=== PATIENT | male | born 1945 | race Caucasian/White ===

== ENCOUNTER 2016-10-18 09:59 | Emergency (ER) | payer BC ==
[~2016-10-18] VITALS: Ht 177.8 cm; Wt 104.5 kg
[~2016-10-18 09:59] MED LIST: ALLO300T2 PO; ALT/10 PO; AMLO10TA4 PO; CLOB-77 TOP; GLIP-197 PO; LPT/40 PO; METF1TAB85 PO; NAPR-1169 PO; OMEP20TA PO; OXYC-57 PO
[2016-10-18 10:04] VITALS: TEMP 36.6; Ht 177.8 cm; Wt 104.5 kg
[2016-10-18] MEDS ORDERED: MOME1OIN2 (10:50)
--- NOTE | 2016-10-18 11:27 | DIAGNOSTIC IMAGING REPORT ---
RIGHT SHOULDER MIN 2 VIEWS ROUTINE CLINICAL HISTORY: Right shoulder pain. COMPARISON: Right shoulder radiograph March 05, 2010. FINDINGS: Alignment of the right shoulder is anatomic. There is no acute fracture or suspicious lesion. There is mild arthritis of the glenohumeral and acromioclavicular joints. IMPRESSION: 1. No acute fracture or dislocation of the right shoulder. 2. Mild arthritis of the right acromioclavicular and glenohumeral joints. Electronically signed by: Zeb Sales M.D. 10/18/2016 11:25 AM Dictated Date/Time: 10/18/2016 11:25 AM
[2016-10-18 11:58] VITALS: BP 151/113; PULSE 78; O2SAT 95
--- NOTE | 2016-10-18 12:27 | EMERGENCY ROOM VISIT NOTE ---
History First contact with patient: 10:38 Chief Complaint: SHOULDER PAIN Stated Complaint: SHOULDER PAIN History of Present Illness The patient is a 71 year old male who presents to the Emergency Room via private vehicle accompanied by with complaints of "shoulder pain". Patient states that he was moving for blade sheets of [place] around 5 weeks ago that involved him using the right arm that was slightly outstretched elevating it when he heard a crunch in his shoulder. He has been trying ice/ heat/ibuprofen 600 mg and 2 Tylenol daily which makes the pain bearable. He started to notice swelling in the region about 2 weeks ago and the pain has been worsening. When he uses he feels like there is a stabbing I feeling in the right shoulder. He was going to wait until his a doctor's appointment coming up with Dr. Albert on November 09 but notes he is unable to stand the pain of which he rates as a 8/10. Review of Systems A complete 6-point Review of Systems was discussed with the patient, with pertinent positives and negatives listed in the History of Present Illness. All remaining Review of Systems questions can be considered negative unless otherwise specified. 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 (4) Gout Nos (5) Hypertension Nos (6) Mixed Hyperlipidemia (7) Obesity, Nos (8) Obesity, Nos (9) Peritoneal Adhesions (Postprocedural) (Postinfection) (10) Senile cataract, unspecified (11) Small bowel obstruction due to adhesions (12) Tobacco Use Disorder (13) Umbilical Hernia Without Obstruction Or Gangrene Surgical Problems: (1) History of bowel resection Family History FH: diabetes mellitus FH: hypertension Social History Smoking Status: Former Smoker Drug Use: none Marital Status: Housing Status: lives with family Current/Historical Medications Scheduled Allopurinol (Zyloprim), 300 MG PO QAM Amlodipine Besylate (Norvasc), 10 MG PO QAM Atorvastatin (Lipitor), 40 MG PO QAM Glipizide (Glipizide Er), 5 MG PO QDB Metformin Hcl (Metformin Hcl Er), 500 MG PO BID Naproxen (Naprosyn), 500 MG PO Q12 Ramipril (Altace), 10 MG PO BID Scheduled PRN Omeprazole (Omeprazole), 20 MG PO DAILY PRN for PRN Miscellaneous Medications Mometasone Furoate (Mometasone Furoate) Allergies Coded Allergies: Atenolol (Verified Allergy, Intermediate, pass out, chest pain, 10/18/16) pt request this to be removed Physical Exam Vital Signs Date Time Temp Pulse Resp B/P Pulse Ox O2 Delivery O2 Flow Rate FiO2 10/18/16 11:58 78 16 151/113 95 10/18/16 10:04 36.6 97 18 178/111 97 Room Air Physical Exam VITAL SIGNS - Vital signs and nursing notes were reviewed. Patient is afebrile , he is hypertensive that 178/111, he is not tachycardic and is saturating well on room air at 97%. GENERAL -71-year-old male appearing his stated age who is in no acute distress. Communicates well with provider and answers questions appropriately. SKIN - Without rashes. No petechial rashes. HEAD - NC/AT. LUNGS - Chest wall symmetric without accessory muscle use, intercostals retractions, or central cyanosis. Normal vesicular breath sounds CTA B/L. No wheezes, rales, or rhonchi appreciated. CARDIAC - RRR with S1/S2. No murmur, rubs, or gallops appreciated. EXTREMITIES - No clubbing or peripheral cyanosis. No pretibial edema present. +3 /5 right radial pulse. +5/5 strength noted in UE/LE bilaterally. With outstretched extension of the right arm and passive elevation with pronation of the right hand there is exquisite tenderness referred to the right deltoid region. When attempting the test for the supraspinatus muscle patient experienced a great deal of pain. Positive empty can test. Suspect supraspinatus injury. NEUROLOGIC - Sensory intact to light touch throughout. PSYCH - Pt is very pleasant and interacts well with examiner. Medical Decision & Procedures ER Provider Diagnostic Interpretation: RIGHT SHOULDER MIN 2 VIEWS ROUTINE CLINICAL HISTORY: Right shoulder pain. COMPARISON: Right shoulder radiograph March 05, 2010. FINDINGS: Alignment of the right shoulder is anatomic. There is no acute fracture or suspicious lesion. There is mild arthritis of the glenohumeral and acromioclavicular joints. IMPRESSION: 1. No acute fracture or dislocation of the right shoulder. 2. Mild arthritis of the right acromioclavicular and glenohumeral joints. Electronically signed by: Zeb Sales M.D. 10/18/2016 11:25 AM Dictated Date/Time: 10/18/2016 11:25 AM Medical Decision Patient was seen and evaluated as above. After obtaining a thorough history and physical examination radiograph was obtained of the right shoulder. High clinical index of suspicion for supraspinatus injury based upon history and physical exam. Radiographs of the right shoulder were obtained. Negative for acute process. In the absence of bony injury I suspect a rotator cuff injury. Patient did not want anything for pain. He was fitted with an arm sling and instructed upon range of motion exercises. He is to call Dr. Johnson, orthopedic surgeon, as soon as possible to schedule follow-up regarding today's visit. He was educated upon management today's findings, had questions answered prior to discharge, was educated upon worrisome symptoms in which to return, and was discharged home in good condition. With reproducible symptoms upon manipulation of the right shoulder I do not suspect any underlying emergent processes such as cardiac or pulmonary causes. In the evaluation and treatment of this patient, the following differential diagnoses were considered: Shoulder Contusion, Shoulder Fracture, Shoulder Dislocation, Thoracic Outlet Syndrome, Adhesive Capsulitis, Rotator Cuff Tear, Proximal Clavicle Head Fracture, Apical Pneumonia, Pneumothorax, Hemothorax, or TB. Impression Primary Impression: Rotator cuff injury Departure Information Dispostion Home / Self-Care Condition GOOD Referrals Chino Albert D.O.Int.Med. (PCP) Selwyn Johnson M.D. Patient Instructions My [facility] Additional Instructions You have been treated in the Emergency Department for Shoulder Pain. For pain control, you can use the following [id number] medicines (if >12 yo): - Regular strength (325mg/tab) Tylenol (acetaminophen) 2 tabs every 4-6 hours as needed. Do not exceed 12 tablets in a 24 hour period. Avoid taking more than 4 grams (4000 mg) of Tylenol per day. This includes any other sources of acetaminophen you may take on a regular basis. - Regular strength (200 mg/tab) Advil (ibuprofen) 1-2 tabs every 4-6 hours as needed. Do not exceed a dose of 3200 mg per day. If this is a recent injury (<24 hrs), ice can be applied to the area of pain for the first 3 days to help decrease pain and inflammation. You have been provided the number for an Orthopaedic Surgeon. You should call this number as soon as possible to establish a follow-up visit from today's Emergency Department visit. Keep the shoulder brace/sling in place until evaluated by Orthopedics. Continue to perform range of motion exercises several times per day to help prevent the development of a "frozen shoulder". Return to the Emergency Department if your current symptoms worsen despite treatment course outlined above, or if you develop any of the following symptoms : intractable pain despite aforementioned treatment course or new onset of numbness or tingling of the arm. Please have your blood pressure rechecked with your family doctor. it was high today. Please return to the emergency department with any new/concerning symptoms. Problem Qualifiers Primary Impression: Rotator cuff injury Encounter type: initial encounter Laterality: right Qualified Codes: S46.001A - Unspecified injury of muscle(s) and tendon(s) of the rotator cuff of right shoulder, initial encounter
[2017-01-13] MEDS ORDERED: DICL1GEL12 EXT (08:59)
[2017-01-19] MEDS ORDERED: OXYC-57 PO (09:07)
[2017-01-19] MEDS ORDERED: KETO10TA PO (09:07)
== END 2016-10-18 12:28 | disposition home or self-care (01) ==
LOC: C.EDB 10:02 → C.EDA 12:28
DX: S46.001A Unspecified injury of muscle(s) and tendon(s) of the rotator cuff of right shoulder, initial encounter (principal); X50.0XXA Overexertion from strenuous movement or load, initial encounter; E11.9 Type 2 diabetes mellitus without complications; I25.10 Atherosclerotic heart disease of native coronary artery without angina pectoris; I10 Essential (primary) hypertension; E78.2 Mixed hyperlipidemia; Z87.891 Personal history of nicotine dependence

== ENCOUNTER 2016-11-07 09:15 | Inpatient (IN) | payer BC, OTHER ==
[2016-11-07] VITALS (7 sets, daily range): BP systolic 133–183; BP diastolic 77–113; PULSE 62–86; TEMP 36.3–36.8; O2SAT 92–97; Ht 177.8 cm; Wt 107.2 kg
[~2016-11-07] VITALS: Ht 177.8 cm; Wt 107.2 kg
[~2016-11-07 09:15] MED LIST changes: -CLOB-77 TOP; +MOME1OIN2; -OXYC-57 PO
[2016-11-07] MEDS ORDERED: SODIUM CHLORIDE 0.9% 1000ML 1,000 ML IV STA (09:38)
[2016-11-07] MEDS ORDERED: ONDANSETRON INJ 2 MG/ML 2 ML VIAL IV STA (09:38)
[2016-11-07] MEDS ORDERED: MoRPHine SULFATE 10 MG/ML CARP/VIAL IV STA (09:38)
[2016-11-07 10:13] LABS: BASO % 0.1 %; BASO ABS # 0.01 K/uL (0-0.2); COMPLETE YES; EOS % 0.4 %; HEMATOCRIT 46.1 % (42-52); IG% 0.4 %; LYMPH % 11.2 %; LYMPH ABS # 1.56 K/uL (1.2-3.4); MEAN CELL VOLUME 89.2 fL (80-100); MEAN CORPUSCULAR HEMOGLOBIN 30.8 pg (25-34); MEAN CORPUSCULAR HGB CONC 34.5 g/dl (32-36); MEAN PLATELET VOLUME 9.4 fL (7.4-10.4); MONO % 3.9 %; PLATELET COUNT 115 K/uL (130-400); RED BLOOD COUNT 5.17 M/uL (4.7-6.1); WHITE BLOOD COUNT 13.93 K/uL (4.8-10.8)
[2016-11-07 10:33] LABS: BUN/CREATININE RATIO 25.8 (10-20); CALCIUM 9.5 mg/dl (8.5-10.1); POTASSIUM 4.4 mmol/L (3.5-5.1)
--- NOTE | 2016-11-07 10:33 | DIAGNOSTIC IMAGING REPORT ---
PA CHEST WITH ABDOMINAL SERIES CLINICAL HISTORY: Generalized abdominal pain. FINDINGS: A PA chest radiograph is compared to study dated 04/24/2016. The examination is degraded by large body habitus and patient rotation. The heart is mildly enlarged and there is atherosclerotic calcification of the thoracic aorta. The pulmonary vasculature is noncongested. There is mild elevation of the right hemidiaphragm. The lungs and pleural spaces are otherwise clear. No pneumothorax is seen. The skeletal structures are osteopenic. The bony thorax is grossly intact. Supine and erect abdominal radiographs are correlated with abdominal CT dated 04/24/2016. There are distended and gas-filled loops of small bowel measuring up to 4.5 cm in diameter. Findings are consistent with a small bowel obstruction. Scattered air-fluid levels are noted on the upright view. No intraperitoneal free air is identified. Moderate fecal retention is noted in the colon. Suture material and phleboliths are identified in the pelvis. There is mild lumbosacral spondylosis. The bony pelvis appears intact. IMPRESSION: 1. Cardiomegaly with no acute cardiopulmonary abnormality. 2. Findings are consistent with a small bowel obstruction. 3. No intraperitoneal free air is seen. Electronically signed by: Roni Workman M.D. 11/07/2016 10:32 AM Dictated Date/Time: 11/07/2016 10:29 AM
[2016-11-07] MEDS ORDERED: MoRPHine SULFATE 4 MG/ML 1 ML CARP\\VIAL IV STA (10:53)
[2016-11-07 10:55] LABS: URINE APPEARANCE CLEAR (CLEAR); URINE BILIRUBIN NEG (NEG); URINE COLOR YELLOW; URINE EPITHELIAL CELL AUTO 0-5 /lpf (0-5); URINE NITRITE NEG (NEG); URINE SPECIFIC GRAVITY 1.014 (1.000-1.030); UROBILINOGEN NEG (NEG)
[2016-11-07 11:22] LABS: MANUAL MICROSCOPIC REQUIRED? NO; REVIEW REQ? NO
[2016-11-07] MEDS ORDERED: ONDANSETRON INJ 2 MG/ML 2 ML VIAL IV PRN (12:00)
[2016-11-07] MEDS ORDERED: OPTIRAY 320 IV PRN (12:15)
[2016-11-07] MEDS: HydrALAZINE HCL 20 MG/ML VIAL IV. PRN ×3 (12:16→15:49)
[2016-11-07] MEDS: HYDROmorphone INJ 1 MG/ML SYR IV PRN ×3 (12:16→20:57)
--- NOTE | 2016-11-07 12:26 | History and Physical ---
History & Physical Date & Time of Service: Nov 07, 2016 at 12:11 Chief Complaint: Abd Pain Primary Care Physician: Chino Albert D.O.Int.Med. History of Present Illness Source: patient, family, hospital records This patient is a 71-year-old male that presents emergency department complaining of diffuse sharp, stabbing abdominal pain that woke him out of sleep around 2 AM this morning. The pain has been constant since. He has not tried any medications to alleviate the pain. He has also felt very nauseous, but denies any vomiting. Last bowel movement was yesterday morning and small. He denies any diarrhea. No fever or chills. He denies any sick contacts. He was feeling somewhat "under the weather" yesterday. He reports eating and drinking normally the day before. Workup in the emergency department consisted of abdominal x-rays. This is consistent with an SBO. Mild leukocytosis at 13,000. Lipase is significantly elevated at 32,828. LFTs are normal. The patient was given morphine 6 mg IV which minimally helped with the pain. He does note that the nausea is much better. The patient has a history of an incarcerated ventral hernia with associated bowel obstruction in April 2016. At that time, his abdominal pain was lower than it is today. The patient also had a partial colectomy done in 2014 for diverticulitis. Past Medical/Surgical History Medical Problems: Diabetes type 2 Gout Hypertension History of incarcerated ventral hernia status post hernia repair and lysis of adhesions in April 2016 History of diverticulitis status post partial colectomy in 2014 Chronic right shoulder pain, possible rotator cuff injury Family History FH: diabetes mellitus FH: hypertension Father of cancer in his 80s Social History Smoking Status: Former Smoker (quit smoking in his 30s) Smokeless Tobacco Use: Yes Alcohol Use: none (minimal) Drug Use: none Marital Status: Housing status: lives with family Immunizations History of Influenza Vaccine: No History of Tetanus Vaccine?: Unknown History of Pneumococcal: No Pneumococcal Date: Apr 26, 2013 History of Hepatitis B Vaccine: Unknown Multi-Drug Resistant Organisms History of MDRO: No Allergies Coded Allergies: Atenolol (Verified Allergy, Intermediate, pass out, chest pain, 11/07/16) pt request this to be removed Home Medications Scheduled Allopurinol (Zyloprim), 300 MG PO QAM Amlodipine Besylate (Norvasc), 10 MG PO QAM Atorvastatin (Lipitor), 40 MG PO QAM Glipizide (Glipizide Er), 5 MG PO QDB Metformin Hcl (Metformin Hcl Er), 500 MG PO BID Naproxen (Naprosyn), 500 MG PO Q12 Ramipril (Altace), 10 MG PO BID Scheduled PRN Omeprazole (Omeprazole), 20 MG PO DAILY PRN for PRN Miscellaneous Medications Mometasone Furoate (Mometasone Furoate) Review of Systems 10 system review performed and negative unless noted in HPI or below Physical Exam Vital Signs Date Time Temp Pulse Resp B/P Pulse Ox O2 Delivery O2 Flow Rate FiO2 11/07/16 11:18 72 16 181/113 94 Room Air 11/07/16 10:32 72 18 169/106 92 Room Air 11/07/16 09:19 36.7 65 22 200/107 98 Room Air General Appearance: + mild distress Head: normocephalic Eyes: EOMI ENT: + pertinent finding (oral mucosa slightly dry) Neck: no JVD Respiratory/Chest: lungs clear Cardiovascular: regular rate, rhythm Abdomen/GI: soft, + pertinent finding (tenderness to palpation diffusely throughout the upper abdomen. No guarding or rebound tenderness. Bowel sounds present, but hypoactive.) Extremities/Musculoskelatal: + pertinent finding (trace pitting edema in the lower extremities without any erythema, tenderness or warmth appreciated bilaterally.) Neurologic/Psych: no motor/sensory deficits, oriented x 3 Skin: warm/dry Diagnostics Laboratory Results 11/07/16 09:42 Red Blood Count 5.17, Mean Corpuscular Volume 89.2, Mean Corpuscular Hemoglobin 30.8, Mean Corpuscular Hemoglobin Concent 34.5, Mean Platelet Volume 9.4, Neutrophils (%) (Auto) 84.0, Lymphocytes (%) (Auto) 11.2, Monocytes (%) (Auto) 3.9, Eosinophils (%) (Auto) 0.4, Basophils (%) (Auto) 0.1, Neutrophils # (Auto) 11.70, Lymphocytes # (Auto) 1.56, Monocytes # (Auto) 0.55, Eosinophils # (Auto) 0.06, Basophils # (Auto) 0.01 Test 11/07/16 09:42 11/07/16 09:45 White Blood Count 13.93 K/uL (4.8-10.8) Red Blood Count 5.17 M/uL (4.7-6.1) Hemoglobin 15.9 g/dL (14.0-18.0) Hematocrit 46.1 % (42-52) Mean Corpuscular Volume 89.2 fL (80-100) Mean Corpuscular Hemoglobin 30.8 pg (25-34) Mean Corpuscular Hemoglobin Concent 34.5 g/dl (32-36) Platelet Count 115 K/uL (130-400) Mean Platelet Volume 9.4 fL (7.4-10.4) Neutrophils (%) (Auto) 84.0 % Lymphocytes (%) (Auto) 11.2 % Monocytes (%) (Auto) 3.9 % Eosinophils (%) (Auto) 0.4 % Basophils (%) (Auto) 0.1 % Neutrophils # (Auto) 11.70 K/uL (1.4-6.5) Lymphocytes # (Auto) 1.56 K/uL (1.2-3.4) Monocytes # (Auto) 0.55 K/uL (0.11-0.59) Eosinophils # (Auto) 0.06 K/uL (0-0.5) Basophils # (Auto) 0.01 K/uL (0-0.2) RDW Standard Deviation 46.2 fL (36.4-46.3) RDW Coefficient of Variation 14.2 % (11.5-14.5) Immature Granulocyte % (Auto) 0.4 % Immature Granulocyte # (Auto) 0.05 K/uL (0.00-0.02) Anion Gap 8.0 mmol/L (3-11) Est Creatinine Clear Calc Drug Dose 80.7 ml/min Estimated GFR () 86.2 Estimated GFR (Non- 74.3 BUN/Creatinine Ratio 25.8 (10-20) Calcium Level 9.5 mg/dl (8.5-10.1) Total Bilirubin 0.5 mg/dl (0.2-1) Direct Bilirubin 0.1 mg/dl (0-0.2) Aspartate Amino Transf (AST/SGOT) 14 U/L (15-37) Alanine Aminotransferase (ALT/SGPT) 16 U/L (12-78) Alkaline Phosphatase 66 U/L (45-117) Total Protein 7.5 gm/dl (6.4-8.2) Albumin 4.0 gm/dl (3.4-5.0) Lipase 78331 U/L (73-393) Urine Color YELLOW Urine Appearance CLEAR (CLEAR) Urine pH 5.0 (4.5-7.5) Urine Specific Pisek 1.014 (1.000-1.030) Urine Protein TRACE (NEG) Urine Glucose (UA) NEG (NEG) Urine Ketones TRACE (NEG) Urine Occult Blood NEG (NEG) Urine Nitrite NEG (NEG) Urine Bilirubin NEG (NEG) Urine Urobilinogen NEG (NEG) Urine Leukocyte Esterase NEG (NEG) Urine WBC (Auto) 1-5 /hpf (0-5) Urine RBC (Auto) 0-4 /hpf (0-4) Urine Hyaline Casts (Auto) 0 /lpf (0-5) Urine Epithelial Cells (Auto) 0-5 /lpf (0-5) Urine Bacteria (Auto) NEG (NEG) Results Past 24 Hours Test 11/07/16 09:42 11/07/16 09:45 Range/Units White Blood Count 13.93 4.8-10.8 K/uL Red Blood Count 5.17 4.7-6.1 M/uL Hemoglobin 15.9 14.0-18.0 g/dL Hematocrit 46.1 42-52 % Mean Corpuscular Volume 89.2 80-100 fL Mean Corpuscular Hemoglobin 30.8 25-34 pg Mean Corpuscular Hemoglobin Concent 34.5 32-36 g/dl Platelet Count 115 130-400 K/uL Mean Platelet Volume 9.4 7.4-10.4 fL Neutrophils (%) (Auto) 84.0 % Lymphocytes (%) (Auto) 11.2 % Monocytes (%) (Auto) 3.9 % Eosinophils (%) (Auto) 0.4 % Basophils (%) (Auto) 0.1 % Neutrophils # (Auto) 11.70 1.4-6.5 K/uL Lymphocytes # (Auto) 1.56 1.2-3.4 K/uL Monocytes # (Auto) 0.55 0.11-0.59 K/uL Eosinophils # (Auto) 0.06 0-0.5 K/uL Basophils # (Auto) 0.01 0-0.2 K/uL RDW Standard Deviation 46.2 36.4-46.3 fL RDW Coefficient of Variation 14.2 11.5-14.5 % Immature Granulocyte % (Auto) 0.4 % Immature Granulocyte # (Auto) 0.05 0.00-0.02 K/uL Sodium Level 138 136-145 mmol/L Potassium Level 4.4 3.5-5.1 mmol/L Chloride Level 104 98-107 mmol/L Carbon Dioxide Level 26 21-32 mmol/L Anion Gap 8.0 3-11 mmol/L Blood Urea Nitrogen 26 7-18 mg/dl Creatinine 1.00 0.60-1.40 mg/dl Est Creatinine Clear Calc Drug Dose 80.7 ml/min Estimated GFR () 86.2 Estimated GFR (Non- 74.3 BUN/Creatinine Ratio 25.8 10-20 Random Glucose 141 70-99 mg/dl Calcium Level 9.5 8.5-10.1 mg/dl Total Bilirubin 0.5 0.2-1 mg/dl Direct Bilirubin 0.1 0-0.2 mg/dl Aspartate Amino Transf (AST/SGOT) 14 15-37 U/L Alanine Aminotransferase (ALT/SGPT) 16 12-78 U/L Alkaline Phosphatase 66 45-117 U/L Total Protein 7.5 6.4-8.2 gm/dl Albumin 4.0 3.4-5.0 gm/dl Lipase 32524 73-393 U/L Urine Color YELLOW Urine Appearance CLEAR CLEAR Urine pH 5.0 4.5-7.5 Urine Specific Pisek 1.014 1.000-1.030 Urine Protein TRACE NEG Urine Glucose (UA) NEG NEG Urine Ketones TRACE NEG Urine Occult Blood NEG NEG Urine Nitrite NEG NEG Urine Bilirubin NEG NEG Urine Urobilinogen NEG NEG Urine Leukocyte Esterase NEG NEG Urine WBC (Auto) 1-5 0-5 /hpf Urine RBC (Auto) 0-4 0-4 /hpf Urine Hyaline Casts (Auto) 0 0-5 /lpf Urine Epithelial Cells (Auto) 0-5 0-5 /lpf Urine Bacteria (Auto) NEG NEG Diagnostic Radiology Patient Name: RENNY LOUIS Unit Number: [id number] Dictated: 11/07/16 1029 Transcribed: 11/07/16 1029 EV Printed Date/Time: [~ rep prt dt]/[~ rep prt tm] [~ rep ct labl] - [~ rep ct ivnm] [facility] [place] [address] Dictated: 11/07/16 1029 Transcribed: 11/07/16 1029 EV Printed Date/Time: [~ rep prt dt]/[~ rep prt tm] [~ rep ct labl] - [~ rep ct ivnm] PA CHEST WITH ABDOMINAL SERIES CLINICAL HISTORY: Generalized abdominal pain. FINDINGS: A PA chest radiograph is compared to study dated 04/24/2016. The examination is degraded by large body habitus and patient rotation. The heart is mildly enlarged and there is atherosclerotic calcification of the thoracic aorta. The pulmonary vasculature is noncongested. There is mild elevation of the right hemidiaphragm. The lungs and pleural spaces are otherwise clear. No pneumothorax is seen. The skeletal structures are osteopenic. The bony thorax is grossly intact. Supine and erect abdominal radiographs are correlated with abdominal CT dated 04/24/2016. There are distended and gas-filled loops of small bowel measuring up to 4.5 cm in diameter. Findings are consistent with a small bowel obstruction. Scattered air-fluid levels are noted on the upright view. No intraperitoneal free air is identified. Moderate fecal retention is noted in the colon. Suture material and phleboliths are identified in the pelvis. There is mild lumbosacral spondylosis. The bony pelvis appears intact. IMPRESSION: 1. Cardiomegaly with no acute cardiopulmonary abnormality. 2. Findings are consistent with a small bowel obstruction. 3. No intraperitoneal free air is seen. Electronically signed by: Roni Workman M.D. 11/07/2016 10:32 AM Dictated Date/Time: 11/07/2016 10:29 AM The status of this report is Signed. Draft = Not yet reviewed or approved by Radiologist. Signed = Reviewed and approved by Radiologist. <AttendingPhy></AttendingPhy> <FamilyPhy>Chino Albert D.O.Int.Med.</ FamilyPhy> <PrimaryPhy>Chino Albert D.O.Int.Med.</PrimaryPhy> <UnitNumber> [id number]</UnitNumber> <VisitNumber>[id number]</VisitNumber> <PatientName> RENNY LOUIS</PatientName> <DateOfBirth>1945</DateOfBirth> <Location> C.EDB</Location> <ServiceDate>11/07/16</ServiceDate> <MNE>ESINDI</MNE> < OrderingPhy>Wolfgang Mills PA-C</OrderingPhy> <OrderingPhyMNE>f rep ord dr genao< /OrderingPhyMNE> <DictatingPhyMNE>f rep dict dr genao</DictatingPhyMNE> <CCListMNE >f rep ct lizae</CCListMNE> <AdmittingPhyMNE>f pt admit dr genao</AdmittingPhyMNE> < AttendingPhyMNE>f pt attend dr genao</AttendingPhyMNE> <ConsultingPhyMNE>f pt consult dr genao</ConsultingPhyMNE> <FamilyPhyMNE>f pt fam dr genao</FamilyPhyMNE> <OtherPhyMNE>f pt other dr genao</OtherPhyMNE> < PrimaryPhyMNE>f pt prim care dr genao</PrimaryPhyMNE> <ReferringPhyMNE>f pt referring dr genao</ReferringPhyMNE> Impression Assessment and Plan 71-year-old male presents to the emergency department with diffuse abdominal pain and nausea. Workup in the emergency department is consistent with an SBO. Lipase is also significantly elevated at almost 33,000. Pancreatitis/SBO -Admit to medical floor -CT abdomen and pelvis with IV contrast only -NPO Except for meds -LR @ 200 cc/hr -Dilaudid 1 mg IV every 4 hours as needed for pain -Zofran 4 mg IV every 6 hours as needed for nausea -General surgery consult -Trend CBC, lipase -Follow electrolytes -Will hold off on NG for now as pt is not vomiting-if his sx worsen will drop NG diabetes mellitus -BSGs q 6 hr -Currently hold home regimen: Metformin 500 mg BID, glipizide ER 5 mg daily -insulin sliding scale -check HgbA1C HTN-BP elevated. Missed morning meds -Hydralazine 10 mg IV q 6 hr PRN -Continue Norvasc 10 mg daily -Continue ramipril 10 mg BID Gout -Continue allopurinol 300 mg daily DVT prophylaxis -Lovenox 40 mg subQ daily -TEDS, SCDs CODE STATUS -CPR ok, NO INTUBATION Level of Care Med/Surg Resuscitation Status FULL NO CARDIOV/MECH EDWARDO VTE Prophylaxis VTE Risk Assessment Done? Y/N: Yes Risk Level: Low Given or contraindicated: Enoxaparin (Lovenox)SQ, T.E.D. Stockings, SCD's Note Attending Admission Note & Attestation: Pt seen/examined, chart reviewed, and care plan d/w PA Trixie Muller. I agree with the pathak components of her admission documentation. 71yo male with h/o HTN, T2DM, h/o diverticulitis requiring hemicolectomy, and previous h/o SBO who presents with acute onset of severe abdominal pain associated with nausea but no emesis. Found to have possible SBO on x-rays at presentation today. Labs notable for markedly elevated lipase >30,000. CT abd/pelvis subsequently ordered by Ms. Muller demonstrating pancreatitis. He denies any etoh use. Denies any new prescription medications; has been taking about 3 OTC motrins and 1 tylenol each day recently for right shoulder pain. During my evaluation on the med/surg floor his main complaint is that of right shoulder pain more so than his abdominal pain although the latter has been constant all day. PMH, PSH, allergies, meds, sochx, famhx, ros - reviewed VSS, afebrile gen - nontoxic, a/o x 3 musculo - right shoulder - tender over subacromial bursa w/ palpation; + impingement signs with lateral abduction and external rotation; crepitus with adduction mouth - MM dry neck - no JVD heart - RRR, s1, s2 lungs - CTA b/l abd - mildly distended, tender epigastric region, BS+, no HSM, no peritoneal signs ext - no edema skin - no icterus CT abd/pelvis - 1. acute pancreatitis 2. calcified cyst in the pancreas, about 2cm in size 3. no mention of bowel dilatation x-rays abd - findings concerning for SBO lipase - 33,000 WBC - 13,000 RUQ u/s - negative for gallstones A/P: 1. acute pancreatitis - etiology uncertain. 2. probable ileus due to #1 above. SBO not seen on CT abd/pelvis. 3. T2DM 4. HTN - uncontrolled 5. right shoulder pain - bursitis +/- tendonitis 6. h/o gout 7. chronic pancreatic cyst. NPO, copious hydration with LR at 200cc/hr, serial labs, IV dilaudid prn. voltaren gel 4 grams QID right shoulder. Appreciate gen surg consult. RE: etiology of #1 -- etoh, gallstones have been r/o. Calcium is normal. Check trigs in AM. Could be viral process. I don't see any meds he takes at home that would cause such. Consider GI consultation in am. Aris Jaramillo MD
--- NOTE | 2016-11-07 13:42 | DIAGNOSTIC IMAGING REPORT ---
ABDOMEN AND PELVIS CT WITH IV CONTRAST CT DOSE: 880.55 mGy.cm HISTORY: Pain SBO ? Pancreatitis TECHNIQUE: Multiaxial CT images of the abdomen and pelvis were performed following the use of intravenous contrast. COMPARISON STUDY: 04/24/2016 FINDINGS: Minimal dependent basilar atelectatic change. Mild fatty infiltration of liver. Gallbladder shows a very slight degree of distention. Kidneys demonstrate several cortical cysts as well as cortical scarring. A dominant hyperdense cyst or complex cyst. Pole right kidney is unchanged. There is moderate peripancreatic edematous and/or infiltrative change. There is a 2.2 cm partially calcified cystic lesion of the posterior mid pancreatic body. This is similar as compared to the prior study with measurements slightly increased. A well-defined drainable abscess or collection is not appreciated. There is trace amount of ascites within the mesentery and right paracolic gutter region. Atherosclerotic change and ectasia of the abdominal aorta is stable. Bowel pattern overall is nonobstructive. There has been interval ventral hernia repair. Bladder is midline. There are postoperative changes in the mid sigmoid. The appendix is normal. IMPRESSION: 1. Findings consistent with pancreatitis. 2. Moderate peripancreatic infiltrative change as well as mild scattered ascites. 3. No evidence for drainable abscess collection or bowel obstructive change. 4. Several renal cysts including an upper pole right renal hyperdense cyst unchanged from prior. 5. Small infrarenal aneurysm unchanged in the prior study of the abdominal aorta. Electronically signed by: Patrick Salinas M.D. 11/07/2016 1:41 PM Dictated Date/Time: 11/07/2016 1:33 PM
[2016-11-07] MEDS ORDERED: GLUCOSE 10 TABS/TUBE PO PRN (14:15)
[2016-11-07] MEDS ORDERED: GLUCAGON FOR INJ 1 MG VIAL SQ PRN (14:15)
[2016-11-07] MEDS ORDERED: DEXTROSE 50% 50 ML SYR IV PRN (14:15)
[2016-11-07] MEDS ORDERED: GLUCOSE 40% GEL 15 GM TUBE PO PRN (14:15)
--- NOTE | 2016-11-07 14:52 | History and Physical ---
History & Physical Date & Time of Service: Nov 07, 2016 at 14:45 Chief Complaint: SBO Primary Care Physician: Chino Albert D.O.Int.Med. History of Present Illness Source: patient, family This patient is a 71-year-old male that presents emergency department complaining of diffuse sharp, stabbing abdominal pain that woke him out of sleep around 2 AM this morning. The pain has been constant since. He has not tried any medications to alleviate the pain. He has also felt very nauseous, but denies any vomiting. Last bowel movement was yesterday morning and small. He denies any diarrhea. No fever or chills. He denies any sick contacts. He was feeling somewhat "under the weather" yesterday. He reports eating and drinking normally the day before. Workup in the emergency department consisted of abdominal x-rays. This is consistent with an SBO. Mild leukocytosis at 13,000. Lipase is significantly elevated at 32,828. LFTs are normal. CT Scan- acute pancreatitis, The patient was given morphine 6 mg IV which minimally helped with the pain. He does note that the nausea is much better. The patient has a history of an incarcerated ventral hernia with associated bowel obstruction in April 2016. At that time, his abdominal pain was lower than it is today. The patient also had a partial colectomy done in 2014 for diverticulitis. Past Medical/Surgical History Medical Problems: (1) Diabetes mellitus Status: Chronic Family History FH: diabetes mellitus FH: hypertension Social History Smoking Status: Current Every Day Smoker (quit smoking in his 30s) Smokeless Tobacco Use: Yes Alcohol Use: none (minimal) Drug Use: none Marital Status: Housing status: lives with family Immunizations History of Influenza Vaccine: No History of Tetanus Vaccine?: Unknown History of Pneumococcal: No Pneumococcal Date: Apr 26, 2013 History of Hepatitis B Vaccine: Unknown Multi-Drug Resistant Organisms History of MDRO: No Allergies Coded Allergies: Atenolol (Verified Allergy, Intermediate, pass out, chest pain, 11/07/16) pt request this to be removed Home Medications Scheduled Allopurinol (Zyloprim), 300 MG PO QAM Amlodipine Besylate (Norvasc), 10 MG PO QAM Atorvastatin (Lipitor), 40 MG PO QAM Glipizide (Glipizide Er), 5 MG PO QDB Metformin Hcl (Metformin Hcl Er), 500 MG PO BID Naproxen (Naprosyn), 500 MG PO Q12 Ramipril (Altace), 10 MG PO BID Scheduled PRN Omeprazole (Omeprazole), 20 MG PO DAILY PRN for PRN Miscellaneous Medications Mometasone Furoate (Mometasone Furoate) Review of Systems Constitutional: No chills, No fatigue, No fever, No problem reported, No sweats , No weakness, No weight loss Eyes: No diplopia, No discharge, No eye pain, No problem reported, No redness, No worsening of vision ENT: No dental problems, No hearing loss, No nasal symptoms, No problem reported, No sore throat, No tinnitus, No trouble swallowing, No unusual epistaxis Respiratory: No cough, No dyspnea at rest, No dyspnea on exertion, No hemoptysis, No problem reported, No shortness of breath, No sputum, No wheezing Cardiovascular: No PND, No chest pain, No claudication, No edema, No orthopnea , No palpitations, No problem reported Abdomen: + nausea, + pain Musculoskeletal: No calf pain, No joint pain, No muscle pain, No problem reported, No swelling Genitourinary - Male: No dysuria, No hematuria, No impotence, No lesions, No penile discharge, No problem reported, No urinary frequency, No urinary hesitancy, No urinary incontinence, No urinary retention, No urinary urgency Neurologic: No balance problems, No memory loss, No numbness/tingling, No paralysis, No problem reported, No vertigo, No weakness Psychiatric: No anhedonism, No anxiety, No depression symptoms, No insomnia, No problem reported, No substance abuse Hematologic / Lymphatic: No abnormal bleeding/bruising, No clotting problems, No night sweats, No problem reported, No swollen lymph nodes Physical Exam Vital Signs Date Time Temp Pulse Resp B/P Pulse Ox O2 Delivery O2 Flow Rate FiO2 11/07/16 14:14 62 168/90 92 Room Air 11/07/16 13:49 36.3 69 12 183/104 93 Room Air 11/07/16 13:08 76 18 136/79 95 11/07/16 12:25 73 18 130/82 95 Room Air 11/07/16 12:15 71 18 157/93 95 11/07/16 12:08 36.7 72 16 181/113 97 Room Air 11/07/16 11:18 72 16 181/113 94 Room Air 11/07/16 10:32 72 18 169/106 92 Room Air 11/07/16 09:19 36.7 65 22 200/107 98 Room Air General Appearance: WD/WN, + mild distress Head: normocephalic Eyes: EOMI ENT: + pertinent finding (oral mucosa slightly dry) Neck: supple, no JVD Respiratory/Chest: lungs clear Cardiovascular: regular rate, rhythm Abdomen/GI: soft, no organomegaly, + tenderness, + pertinent finding ( tenderness to palpation diffusely throughout the upper abdomen. No guarding or rebound tenderness. Bowel sounds present, but hypoactive.) Back: normal inspection Extremities/Musculoskelatal: normal inspection, no calf tenderness, normal capillary refill, + pertinent finding (trace pitting edema in the lower extremities without any erythema, tenderness or warmth appreciated bilaterally.) Neurologic/Psych: no motor/sensory deficits, alert, normal mood/affect, oriented x 3 Skin: normal color, warm/dry, no rash Diagnostics Laboratory Results Results Past 24 Hours Test 11/07/16 09:42 11/07/16 09:45 Range/Units White Blood Count 13.93 4.8-10.8 K/uL Red Blood Count 5.17 4.7-6.1 M/uL Hemoglobin 15.9 14.0-18.0 g/dL Hematocrit 46.1 42-52 % Mean Corpuscular Volume 89.2 80-100 fL Mean Corpuscular Hemoglobin 30.8 25-34 pg Mean Corpuscular Hemoglobin Concent 34.5 32-36 g/dl Platelet Count 115 130-400 K/uL Mean Platelet Volume 9.4 7.4-10.4 fL Neutrophils (%) (Auto) 84.0 % Lymphocytes (%) (Auto) 11.2 % Monocytes (%) (Auto) 3.9 % Eosinophils (%) (Auto) 0.4 % Basophils (%) (Auto) 0.1 % Neutrophils # (Auto) 11.70 1.4-6.5 K/uL Lymphocytes # (Auto) 1.56 1.2-3.4 K/uL Monocytes # (Auto) 0.55 0.11-0.59 K/uL Eosinophils # (Auto) 0.06 0-0.5 K/uL Basophils # (Auto) 0.01 0-0.2 K/uL RDW Standard Deviation 46.2 36.4-46.3 fL RDW Coefficient of Variation 14.2 11.5-14.5 % Immature Granulocyte % (Auto) 0.4 % Immature Granulocyte # (Auto) 0.05 0.00-0.02 K/uL Sodium Level 138 136-145 mmol/L Potassium Level 4.4 3.5-5.1 mmol/L Chloride Level 104 98-107 mmol/L Carbon Dioxide Level 26 21-32 mmol/L Anion Gap 8.0 3-11 mmol/L Blood Urea Nitrogen 26 7-18 mg/dl Creatinine 1.00 0.60-1.40 mg/dl Est Creatinine Clear Calc Drug Dose 80.7 ml/min Estimated GFR () 86.2 Estimated GFR (Non- 74.3 BUN/Creatinine Ratio 25.8 10-20 Random Glucose 141 70-99 mg/dl Calcium Level 9.5 8.5-10.1 mg/dl Total Bilirubin 0.5 0.2-1 mg/dl Direct Bilirubin 0.1 0-0.2 mg/dl Aspartate Amino Transf (AST/SGOT) 14 15-37 U/L Alanine Aminotransferase (ALT/SGPT) 16 12-78 U/L Alkaline Phosphatase 66 45-117 U/L Total Protein 7.5 6.4-8.2 gm/dl Albumin 4.0 3.4-5.0 gm/dl Lipase 68675 73-393 U/L Urine Color YELLOW Urine Appearance CLEAR CLEAR Urine pH 5.0 4.5-7.5 Urine Specific [place] 1.014 1.000-1.030 Urine Protein TRACE NEG Urine Glucose (UA) NEG NEG Urine Ketones TRACE NEG Urine Occult Blood NEG NEG Urine Nitrite NEG NEG Urine Bilirubin NEG NEG Urine Urobilinogen NEG NEG Urine Leukocyte Esterase NEG NEG Urine WBC (Auto) 1-5 0-5 /hpf Urine RBC (Auto) 0-4 0-4 /hpf Urine Hyaline Casts (Auto) 0 0-5 /lpf Urine Epithelial Cells (Auto) 0-5 0-5 /lpf Urine Bacteria (Auto) NEG NEG Diagnostic Radiology CT scan-IMPRESSION: 1. Findings consistent with pancreatitis. 2. Moderate peripancreatic infiltrative change as well as mild scattered ascites. 3. No evidence for drainable abscess collection or bowel obstructive change. 4. Several renal cysts including an upper pole right renal hyperdense cyst unchanged from prior. 5. Small infrarenal aneurysm unchanged in the prior study of the abdominal aorta. CXR, abd [id number]: 1. Cardiomegaly with no acute cardiopulmonary abnormality. 2. Findings are consistent with a small bowel obstruction. 3. No intraperitoneal free air is seen. Impression Assessment and Plan IMP : Acute pancreatitis plan: recommend GI consult IV fluid, IV antibiotic control pain, D/W diagnosis and treatment plan, pt and his understood, I answered all questions. repeat labs in AM, will F/U Advanced Directives Existing Living Will: No Existing Power of Sybase Developer: Yes VTE Prophylaxis VTE Risk Assessment Done? Y/N: Yes Risk Level: Low Given or contraindicated: Enoxaparin (Lovenox)SQ, T.E.D. Stockings, SCD's
[2016-11-07] MEDS: LACTATED RINGER'S 1000ML 1,000 ML IV SCH ×4 (15:18→22:37)
[2016-11-07] MEDS ORDERED: INSULIN ASPART 100 UNITS/ML 3 ML PEN SC SCH (16:00)
[2016-11-07] MEDS ORDERED: NURSING VERBAL MED ORDER ONE ×2 (17:00→20:45)
[2016-11-07] MEDS: AMLODIPINE BESYLATE 5 MG TAB PO SCH (17:27)
--- NOTE | 2016-11-07 17:33 | DIAGNOSTIC IMAGING REPORT ---
ABDOMINAL ULTRASOUND, RIGHT UPPER QUADRANT HISTORY: Acute pancreatitis. COMPARISON: CT of the abdomen and pelvis November 07, 2016 and right upper quadrant ultrasound April 24, 2016. FINDINGS: Hepatic echogenicity is increased. A 6 mm left hepatic lobe cyst is noted. No gallstones are identified. There is no gallbladder wall thickening. There is no biliary ductal dilatation. The pancreas is obscured by overlying bowel gas. There is no right hydronephrosis. A 4.5 cm septated cyst within the upper pole of the right kidney is noted. IMPRESSION: 1. No gallstones or biliary ductal dilatation. 2. Fatty liver. 3. Obscured pancreas due to overlying bowel gas. Electronically signed by: Zeb Sales M.D. 11/07/2016 5:32 PM Dictated Date/Time: 11/07/2016 5:30 PM
[2016-11-07] MEDS: INSULIN ASPART 100 UNITS/ML 3 ML PEN SC SCH (17:54)
--- NOTE | 2016-11-07 18:15 | EMERGENCY ROOM VISIT NOTE ---
ED Visit Note First contact with patient: 09:27 Chief Complaint: Abdominal pain. History of Present Illness: Mr. Castellano is a 71 year-old white male complaining of diffuse abdominal pain. Historically patient reports diverticulitis with partial colectomy, incarcerated ventral hernia and small bowel obstruction. Patient reports acute onset of diffuse abdominal pain that started approximately 7 hours ago. Since that time the pain has been constant. He describes his pain as a sharp sensation. His pain is nonradiating. He rates his discomfort 8/10. His pain worsens when he attempts to eat and palpation. He has not identified any alleviating factors related to the pain. He has not taken any medication for pain prior to arrival at the hospital. Associated with his pain he reports she's been nauseated but has not vomited. He has not moved his bowels since yesterday morning and report was only a small amount. He feels like his abdomen is distended and had to wear a loose pair of pants to the hospital today. Patient denies fevers, chills, sweats, skin eruptions, skin color changes, upper respiratory tract symptoms, shortness of breath, chest pain, diarrhea, rectal bleeding, black/tarry stools, urinary symptoms, hematuria, back/flank pain. Review of Systems: As noted above in history of present illness. All body systems were reviewed and found to be negative as noted above. Past Medical History: As noted above and diabetes, hypertension, atherosclerotic heart disease, hypertension, gout, mixed lipidemia, chronic right shoulder pain. Current Medications: Medications Dose Route/Sig Max Daily Dose Days Date Category Mometasone Furoate 0.1 % Oin 10/18/16 Reported Altace (Ramipril) 10 Mg Cap 10 Mg PO BID 06/29/16 Reported Glipizide Er (Glipizide) 5 Mg Tab 5 Mg PO QDB 04/24/16 Reported Naprosyn (Naproxen) 500 Mg Tab 500 Mg PO Q12 04/24/16 Reported Metformin Hcl Er (Metformin Hcl) 500 Mg Tab 500 Mg PO BID 02/13/15 Reported Omeprazole 20 Mg Tab 20 Mg PO DAILY PRN 04/08/13 Reported Lipitor (Atorvastatin) 40 Mg Tab 40 Mg PO QAM 04/08/13 Reported Norvasc (Amlodipine Besylate) 10 Mg Tab 10 Mg PO QAM 04/08/13 Reported Zyloprim (Allopurinol) 300 Mg Tab 300 Mg PO QAM 04/08/13 Reported Allergies to Medications: Atenolol. Social History: Patient is currently retired; lives with family and feels safe in his home environment; he denies current tobacco and alcohol use. Physical Examination: Vital Signs: Date Time Temp Pulse Resp B/P Pulse Ox O2 Delivery O2 Flow Rate FiO2 11/07/16 11:18 72 16 181/113 94 Room Air 11/07/16 10:32 72 18 169/106 92 Room Air 11/07/16 09:19 36.7 65 22 200/107 98 Room Air GENERAL: 71-year-old female in moderate distress due to pain, nontoxic-appearing , afebrile and hemodynamically stable. NEUROLOGICAL: Awake, alert and oriented to person, place and time. Answering questions appropriately and following commands. Normal gait. Good hand eye coordination. SKIN: Warm, dry and pink. No soft tissue eruptions or trauma noted. HEENT: Atraumatic and normocephalic. PERRLA. Sclera white and conjunctiva pink. Oral cavity moist and pink. Pharynx is nonerythematous or edematous. Speech normal. No lymphadenopathy. Trachea midline. No jugular venous distention. BACK: No tenderness over the bony spine. No CVA tenderness. THORAX: Lungs sounds are clear to auscultation and equal bilaterally with symmetrical chest wall. No wheezing, rales or rhonchi. No crepitus, tenderness , subcutaneous air or deformities noted. HEART: Regular rate and rhythm. No gallops, rubs or murmurs are appreciated. ABDOMEN: Mildly distended, soft with diffuse tenderness with prominence in the right upper quadrant. Decreased bowel sounds in all quadrants. No guarding, rigidity or organomegaly. EXTREMITIES: Moves all extremities well on command and with purpose. All distal neurovascular statuses are intact and equal bilaterally. Mild dependent edema. ED Course: Patient is assessed as noted above. Laboratory Testing: Test 11/07/16 09:42 11/07/16 09:45 Range/Units White Blood Count 13.93 4.8-10.8 K/uL Red Blood Count 5.17 4.7-6.1 M/uL Hemoglobin 15.9 14.0-18.0 g/dL Hematocrit 46.1 42-52 % Mean Corpuscular Volume 89.2 80-100 fL Mean Corpuscular Hemoglobin 30.8 25-34 pg Mean Corpuscular Hemoglobin Concent 34.5 32-36 g/dl Platelet Count 115 130-400 K/uL Mean Platelet Volume 9.4 7.4-10.4 fL Neutrophils (%) (Auto) 84.0 % Lymphocytes (%) (Auto) 11.2 % Monocytes (%) (Auto) 3.9 % Eosinophils (%) (Auto) 0.4 % Basophils (%) (Auto) 0.1 % Neutrophils # (Auto) 11.70 1.4-6.5 K/uL Lymphocytes # (Auto) 1.56 1.2-3.4 K/uL Monocytes # (Auto) 0.55 0.11-0.59 K/uL Eosinophils # (Auto) 0.06 0-0.5 K/uL Basophils # (Auto) 0.01 0-0.2 K/uL RDW Standard Deviation 46.2 36.4-46.3 fL RDW Coefficient of Variation 14.2 11.5-14.5 % Immature Granulocyte % (Auto) 0.4 % Immature Granulocyte # (Auto) 0.05 0.00-0.02 K/uL Sodium Level 138 136-145 mmol/L Potassium Level 4.4 3.5-5.1 mmol/L Chloride Level 104 98-107 mmol/L Carbon Dioxide Level 26 21-32 mmol/L Anion Gap 8.0 3-11 mmol/L Blood Urea Nitrogen 26 7-18 mg/dl Creatinine 1.00 0.60-1.40 mg/dl Est Creatinine Clear Calc Drug Dose 80.7 ml/min Estimated GFR () 86.2 Estimated GFR (Non- 74.3 BUN/Creatinine Ratio 25.8 10-20 Random Glucose 141 70-99 mg/dl Calcium Level 9.5 8.5-10.1 mg/dl Total Bilirubin 0.5 0.2-1 mg/dl Direct Bilirubin 0.1 0-0.2 mg/dl Aspartate Amino Transf (AST/SGOT) 14 15-37 U/L Alanine Aminotransferase (ALT/SGPT) 16 12-78 U/L Alkaline Phosphatase 66 45-117 U/L Total Protein 7.5 6.4-8.2 gm/dl Albumin 4.0 3.4-5.0 gm/dl Lipase 96347 73-393 U/L Urine Color YELLOW Urine Appearance CLEAR CLEAR Urine pH 5.0 4.5-7.5 Urine Specific [place] 1.014 1.000-1.030 Urine Protein TRACE NEG Urine Glucose (UA) NEG NEG Urine Ketones TRACE NEG Urine Occult Blood NEG NEG Urine Nitrite NEG NEG Urine Bilirubin NEG NEG Urine Urobilinogen NEG NEG Urine Leukocyte Esterase NEG NEG Urine WBC (Auto) 1-5 0-5 /hpf Urine RBC (Auto) 0-4 0-4 /hpf Urine Hyaline Casts (Auto) 0 0-5 /lpf Urine Epithelial Cells (Auto) 0-5 0-5 /lpf Urine Bacteria (Auto) NEG NEG Acute Abdominal X-Ray Series: Was reviewed by myself and read by the radiologist showing no acute infiltrates, effusions or pneumothorax. Heart is mildly enlarged with vascular's chronic calcification in the thoracic aorta and skeletal structures are osteopenic. Abdominal component shows distended/gas- filled loops of small bowel measuring up to 4.5 cm in diameter consistent with small bowel obstruction. There is also scattered air-fluid levels. No intraperitoneal free air. Moderate fecal retention and mild lumbosacral spondylosis. Patient was hydrated with normal saline and he received a total of 10 mg of morphine and 4 mg of Zofran IV for his symptoms. Patient's case was reviewed with Dr. Shields; she did apparently assessed the patient we agreed on diagnostic approach, treatment, disposition and plan. Patient's case was consulted with case management and Dr. Ciro Jaramillo, hospitalist , for medical observation/admission. Shortly after I reviewed the case with the hospitalist I found that the patient' s lipase came back significantly elevated to 32,000; I recontacted the hospitalist and offered to order a CT scan and reported they would order a CT. Patient was educated about tonight's findings. Clinical Impression: Small bowel obstruction. Acute pancreatitis. Decision-Making: Initially my differential diagnosis I considered bowel obstruction, perforated viscus, constipation, pancreatitis, hepatitis and other causes. Disposition and Plan: Patient be brought in the hospital by the [facility] hospitalist; please see her notes and orders for final disposition and plan.
[2016-11-07] MEDS: DICLOFENAC SOD 1% GEL 100 GM TUBE EXT SCH (19:49)
[2016-11-07] MEDS: ENALAPRIL MALEATE 10 MG TAB PO SCH (20:58)
[2016-11-07] MEDS ORDERED: NON-FORMULARY MEDICATION (Ramipril (Altace) 10 MG) PO SCH (21:00)
[2016-11-08] MEDS: DICLOFENAC SOD 1% GEL 100 GM TUBE EXT SCH ×4 (01:07→17:54)
[2016-11-08] MEDS: ACETAMINOPHEN 325 MG TAB PO PRN ×3 (01:16→20:49)
[2016-11-08] MEDS: LACTATED RINGER'S 1000ML 1,000 ML IV SCH ×4 (01:17→19:15)
[2016-11-08] MEDS: INSULIN ASPART 100 UNITS/ML 3 ML PEN SC SCH ×4 (06:00→18:00)
[2016-11-08 07:14] VITALS: BP 156/86; PULSE 82; TEMP 36.6; O2SAT 92
[2016-11-08 08:34] LABS: BASO % 0.1 %; BASO ABS # 0.01 K/uL (0-0.2); COMPLETE YES; EOS % 0.1 %; HEMATOCRIT 41.7 % (42-52); IG% 0.2 %; LYMPH % 7.9 %; LYMPH ABS # 1.27 K/uL (1.2-3.4); MEAN CELL VOLUME 90.3 fL (80-100); MEAN CORPUSCULAR HGB CONC 34.3 g/dl (32-36); MEAN PLATELET VOLUME 9.7 fL (7.4-10.4); MONO % 4.7 %; PLATELET COUNT 103 K/uL (130-400); RED BLOOD COUNT 4.62 M/uL (4.7-6.1); WHITE BLOOD COUNT 16.14 K/uL (4.8-10.8)
[2016-11-08 08:37] LABS: ESTIMATED AVERAGE GLUCOSE 128 mg/dl; HA1C FLAG Normal (Normal)
[2016-11-08 08:46] LABS: INR 1.1 (0.9-1.1); PROTHROMBIN TIME (PATIENT) 11.6 SECONDS (9.0-12.0)
[2016-11-08 09:23] LABS: BUN/CREATININE RATIO 17.8 (10-20); CALCIUM 8.4 mg/dl (8.5-10.1); CHOLESTEROL/HDL RATIO 3.4; CREATININE 0.88 mg/dl (0.60-1.40); POTASSIUM 3.8 mmol/L (3.5-5.1)
[2016-11-08] MEDS: ENALAPRIL MALEATE 10 MG TAB PO SCH ×2 (09:23→20:47)
[2016-11-08] MEDS: AMLODIPINE BESYLATE 5 MG TAB PO SCH (09:24)
[2016-11-08] MEDS: ALLOPURINOL 300 MG TAB PO SCH (09:25)
[2016-11-08] MEDS: ATORVASTATIN 40 MG TAB PO SCH (09:25)
[2016-11-08] MEDS: ENOXAPARIN 40 MG/0.4 ML SYR SQ SCH (09:26)
--- NOTE | 2016-11-08 09:52 | Surgery Progress Note ---
Surgery Progress Note Date of Service Nov 08, 2016. Subjective Post OP Day: 1 + ambulating, + flatus, + nausea, No vomiting Objective Vital Signs: Date Time Temp Pulse Resp B/P Pulse Ox O2 Delivery O2 Flow Rate FiO2 11/08/16 08:35 Nasal Cannula 2.0 11/08/16 07:14 36.6 82 16 156/86 92 2.0 11/08/16 01:10 Nasal Cannula 2.0 11/07/16 22:58 36.8 86 16 133/77 94 Room Air 11/07/16 19:43 77 19 165/90 96 Nasal Cannula 2.0 11/07/16 15:27 36.3 67 16 180/102 96 Nasal Cannula 2.0 11/07/16 15:15 Nasal Cannula 2.0 11/07/16 14:14 62 168/90 92 Room Air 11/07/16 13:49 36.3 69 12 183/104 93 Room Air 11/07/16 13:08 76 18 136/79 95 11/07/16 12:25 73 18 130/82 95 Room Air 11/07/16 12:15 71 18 157/93 95 11/07/16 12:08 36.7 72 16 181/113 97 Room Air 11/07/16 11:18 72 16 181/113 94 Room Air 11/07/16 10:32 72 18 169/106 92 Room Air General Appearance: WD/WN, no apparent distress Head: normocephalic, atraumatic Respiratory/Chest: no respiratory distress, no accessory muscle use Abdomen: soft, + distended, + tenderness (upper abdomen) Laboratory Results: Results Past 24 Hours Test 11/07/16 17:51 11/08/16 00:19 11/08/16 06:12 11/08/16 08:03 Range/Units Bedside Glucose 104 97 96 70-99 mg/dl White Blood Count 16.14 4.8-10.8 K/uL Red Blood Count 4.62 4.7-6.1 M/uL Hemoglobin 14.3 14.0-18.0 g/dL Hematocrit 41.7 42-52 % Mean Corpuscular Volume 90.3 80-100 fL Mean Corpuscular Hemoglobin 31.0 25-34 pg Mean Corpuscular Hemoglobin Concent 34.3 32-36 g/dl Platelet Count 103 130-400 K/uL Mean Platelet Volume 9.7 7.4-10.4 fL Neutrophils (%) (Auto) 87.0 % Lymphocytes (%) (Auto) 7.9 % Monocytes (%) (Auto) 4.7 % Eosinophils (%) (Auto) 0.1 % Basophils (%) (Auto) 0.1 % Neutrophils # (Auto) 14.04 1.4-6.5 K/uL Lymphocytes # (Auto) 1.27 1.2-3.4 K/uL Monocytes # (Auto) 0.76 0.11-0.59 K/uL Eosinophils # (Auto) 0.02 0-0.5 K/uL Basophils # (Auto) 0.01 0-0.2 K/uL RDW Standard Deviation 48.6 36.4-46.3 fL RDW Coefficient of Variation 14.6 11.5-14.5 % Immature Granulocyte % (Auto) 0.2 % Immature Granulocyte # (Auto) 0.04 0.00-0.02 K/uL Prothrombin Time 11.6 9.0-12.0 SECONDS Prothromb Time International Ratio 1.1 0.9-1.1 Sodium Level 137 136-145 mmol/L Potassium Level 3.8 3.5-5.1 mmol/L Chloride Level 103 98-107 mmol/L Carbon Dioxide Level 24 21-32 mmol/L Anion Gap 10.0 3-11 mmol/L Blood Urea Nitrogen 16 7-18 mg/dl Creatinine 0.88 0.60-1.40 mg/dl Est Creatinine Clear Calc Drug Dose 91.7 ml/min Estimated GFR () 98.8 Estimated GFR (Non- 85.2 BUN/Creatinine Ratio 17.8 10-20 Random Glucose 107 70-99 mg/dl Estimated Average Glucose 128 mg/dl Hemoglobin A1c 6.1 4.5-5.6 % Calcium Level 8.4 8.5-10.1 mg/dl Magnesium Level 2.0 1.8-2.4 mg/dl Triglycerides Level 97 0-150 mg/dl Cholesterol Level 123 0-200 mg/dl HDL Cholesterol 36 mg/dl LDL Cholesterol, Calculated 68 mg/dl VLDL Cholesterol, Calculated 19 mg/dl Cholesterol/HDL Ratio 3.4 Lipase 6385 73-393 U/L Assessment & Plan Acute Pancreatitis Ileus - passed flatus this am - no bowel movement -+ nausea and abdominal pain (upper abdomen) now 4-01/18 - lipase decreased to 6385 from 30,000 - slight abdominal distention - no vomiting PLAN: Continue IV fluids and NPO Continue IV pain management as needed encourage ambulation Will continue to follow Dr. Segura has seen and examined patient agrees with assessment and plan.
[2016-11-08] MEDS: PANTOprazole INJ 40 MG in SYRINGE 0 ML IV SCH (11:25)
--- NOTE | 2016-11-08 12:06 | Gastrointestinal Consultation ---
Gastrointestinal Consultation Date of Consultation: Nov 08, 2016 Consulting Physician: Slick Reason for Consultation: acute pancreatitis History of Present Illness Patient is a 71 year old male with past medical history significant for DM, SBO due to adhesions, bowel resection, incarcerated ventral hernia, colostomy who presented to the ED for diffuse abdominal pain. On admission he was experiencing abrupt onset, sharp, constant abdominal pain, this was generalized and slightly worse in the upper abdomen and epigastric region. This was made worse by touch and food. There was associated nausea but no vomiting. No fever, chills, chest pains, SOB, black/bloody stools/emesis. Chest XR in the ER with ? SBO. A CT abd was completed and without any sign of SBO. Labs were pertinent for lipase of 32,000 and normal LFTs. He was seen and examined today. His epigastric pain is constant, sharp and persisting despite bowel rest and pain medications. + Nausea no vomiting. Denies any new medications, ETOH consumption , previous episodes of pancreatitis. Gallbladder US 11/07/16: Hepatic echogenicity is increased. A 6 mm left hepatic lobe cyst is noted. No gallstones are identified. There is no gallbladder wall thickening. There is no biliary ductal dilatation. The pancreas is obscured by overlying bowel gas. There is no right hydronephrosis. A 4.5 cm septated cyst within the upper pole of the right kidney is noted. CT abd 11/07/16: Mild fatty infiltration of liver. Gallbladder shows a very slight degree of distention. There is moderate peripancreatic edematous and/or infiltrative change. There is a 2.2 cm partially calcified cystic lesion of the posterior mid pancreatic body. This is similar as compared to the prior study with measurements slightly increased. A well-defined drainable abscess or collection is not appreciated. There is trace amount of ascites within the mesentery and right paracolic gutter region. Atherosclerotic change and ectasia of the abdominal aorta is stable. Bowel pattern overall is nonobstructive. There has been interval ventral hernia repair. Bladder is midline. There are postoperative changes in the mid sigmoid. CT abd 04/24/16: There is a 2.2 cm ovoid cystic lesion in the pancreatic body. This has minimally increased in size from 04/20/2013, and likely represents an IPMN and or mucinous cystic neoplasm. If further assessment is desired then an endoscopic ultrasound would be appropriate. Past Medical/Surgical History Medical Problems: (1) Rotator cuff injury Status: Acute (2) Small bowel obstruction Status: Acute Family History FH: diabetes mellitus FH: hypertension Social History Smoking Status: Current Every Day Smoker (quit smoking in his 30s) Drug Use: none Marital Status: Housing Status: lives with family Allergies Coded Allergies: Atenolol (Verified Allergy, Intermediate, pass out, chest pain, 11/07/16) pt request this to be removed Current Medications Home Meds and Scripts Medications Dose Route/Sig Max Daily Dose Days Date Category Mometasone Furoate 0.1 % Oin 10/18/16 Reported Altace (Ramipril) 10 Mg Cap 10 Mg PO BID 06/29/16 Reported Glipizide Er (Glipizide) 5 Mg Tab 5 Mg PO QDB 04/24/16 Reported Naprosyn (Naproxen) 500 Mg Tab 500 Mg PO Q12 04/24/16 Reported Metformin Hcl Er (Metformin Hcl) 500 Mg Tab 500 Mg PO BID 02/13/15 Reported Omeprazole 20 Mg Tab 20 Mg PO DAILY PRN 04/08/13 Reported Lipitor (Atorvastatin) 40 Mg Tab 40 Mg PO QAM 04/08/13 Reported Norvasc (Amlodipine Besylate) 10 Mg Tab 10 Mg PO QAM 04/08/13 Reported Zyloprim (Allopurinol) 300 Mg Tab 300 Mg PO QAM 04/08/13 Reported Review of Systems Constitutional: No chills, No fever Respiratory: + problem reported (patient is wearing O2, typically does not wear O2 at home, reports is not SOB or any change in his respiratory baseline), No cough, No shortness of breath Cardiac: No chest pain, No edema Abdomen: + nausea, + pain, No GI bleeding, No constipation, No diarrhea, No vomiting Skin: No itch, No jaundice, No rash Physical Exam Date Time Temp Pulse Resp B/P Pulse Ox O2 Delivery O2 Flow Rate FiO2 11/08/16 08:35 Nasal Cannula 2.0 11/08/16 07:14 36.6 82 16 156/86 92 2.0 11/08/16 01:10 Nasal Cannula 2.0 11/07/16 22:58 36.8 86 16 133/77 94 Room Air 11/07/16 19:43 77 19 165/90 96 Nasal Cannula 2.0 11/07/16 15:27 36.3 67 16 180/102 96 Nasal Cannula 2.0 11/07/16 15:15 Nasal Cannula 2.0 11/07/16 14:14 62 168/90 92 Room Air 11/07/16 13:49 36.3 69 12 183/104 93 Room Air 11/07/16 13:08 76 18 136/79 95 11/07/16 12:25 73 18 130/82 95 Room Air 11/07/16 12:15 71 18 157/93 95 11/07/16 12:08 36.7 72 16 181/113 97 Room Air General Appearance: no apparent distress Eyes: PERRL ENT: hearing grossly normal Neck: supple, trachea midline Respiratory/Chest: lungs clear, normal breath sounds, no accessory muscle use Cardiovascular: regular rate, rhythm, no edema, no gallop, no murmur Abdomen: normal bowel sounds, soft, no organomegaly, no pulsatile mass, + tenderness (diffuse upper abdomen tenderness, worse in epigastric region) Neurologic/Psych: alert, normal mood/affect, oriented x 3 Skin: normal color, no jaundice, warm/dry Laboratory Results Last 24 Hours Test 11/07/16 17:51 11/08/16 00:19 11/08/16 06:12 11/08/16 08:03 Bedside Glucose 104 mg/dl 97 mg/dl 96 mg/dl White Blood Count 16.14 K/uL Red Blood Count 4.62 M/uL Hemoglobin 14.3 g/dL Hematocrit 41.7 % Mean Corpuscular Volume 90.3 fL Mean Corpuscular Hemoglobin 31.0 pg Mean Corpuscular Hemoglobin Concent 34.3 g/dl Platelet Count 103 K/uL Mean Platelet Volume 9.7 fL Neutrophils (%) (Auto) 87.0 % Lymphocytes (%) (Auto) 7.9 % Monocytes (%) (Auto) 4.7 % Eosinophils (%) (Auto) 0.1 % Basophils (%) (Auto) 0.1 % Neutrophils # (Auto) 14.04 K/uL Lymphocytes # (Auto) 1.27 K/uL Monocytes # (Auto) 0.76 K/uL Eosinophils # (Auto) 0.02 K/uL Basophils # (Auto) 0.01 K/uL RDW Standard Deviation 48.6 fL RDW Coefficient of Variation 14.6 % Immature Granulocyte % (Auto) 0.2 % Immature Granulocyte # (Auto) 0.04 K/uL Prothrombin Time 11.6 SECONDS Prothromb Time International Ratio 1.1 Sodium Level 137 mmol/L Potassium Level 3.8 mmol/L Chloride Level 103 mmol/L Carbon Dioxide Level 24 mmol/L Anion Gap 10.0 mmol/L Blood Urea Nitrogen 16 mg/dl Creatinine 0.88 mg/dl Est Creatinine Clear Calc Drug Dose 91.7 ml/min Estimated GFR () 98.8 Estimated GFR (Non- 85.2 BUN/Creatinine Ratio 17.8 Random Glucose 107 mg/dl Estimated Average Glucose 128 mg/dl Hemoglobin A1c 6.1 % Calcium Level 8.4 mg/dl Magnesium Level 2.0 mg/dl Triglycerides Level 97 mg/dl Cholesterol Level 123 mg/dl HDL Cholesterol 36 mg/dl LDL Cholesterol, Calculated 68 mg/dl VLDL Cholesterol, Calculated 19 mg/dl Cholesterol/HDL Ratio 3.4 Lipase 6385 U/L Test 11/08/16 11:44 Bedside Glucose 111 mg/dl Impression Patient is a 71 year old male with an acute episode of pancreatitis with lipase of 32,[address] evidence. There are no evidence of gallstones or sludge with a normal CBD and unremarkable liver enzymes. No new medications or ETOH consumption for about 4 months. There is a 2.2 cm partially calcified cystic lesion on the pancreas that is slightly enlarged from previous studies. Plan LR 200 ml/hr for NPO except medications Continue Dilaudid as needed for pain Continue zofran as needed for nausea CBC - drop in H&H by 2 points for adequate hydration Do not need to trend lipase May advance to clear liquids tomorrow if patient is feeling better possible EUS for evaluation of evolving pancreatic cystic lesion Will leave ?SBO management up to surgery and the primary team I have seen and evaluated the patient. He presented with acute pancreatitis and evidence of an ileus on CT scan. The patient reports that his symptoms are slowly improving since admission last evening. Imaging did not show evidence of dilated biliary tree or gallstones. Of note there was peripancreatic inflammation and possible cyst within the pancreatic head. Physical examination No obvious distress, no scleral icterus Mild abdominal distention, no peritoneal or rebound signs Impression Patient presents with idiopathic pancreatitis. I wonder if it may be from stones or sludge not seen on imaging studies. As the patient's liver enzymes are within normal limits I would suggest continued IV hydration and monitoring of his labs. We will plan to pursue outpatient endoscopic ultrasound for evaluation of the pancreatic cysts seen on today's CT scan. At the same time we will evaluate his biliary tree for evidence of gallstones or sludge not seen on other imaging studies. Recommendations Continue nothing by mouth for today Increase LR to 200 mL per hour Continue daily labs Outpatient endoscopic ultrasound in 6-8 weeks Please call with any questions or concerns
--- NOTE | 2016-11-08 13:01 | Hospitalist Progress Note ---
Hospitalist Progress Note Date of Service Nov 08, 2016. (Trixie Muller PA-C) Subjective Pt evaluation today including: conversation w/ patient, physical exam, chart review, lab review, review of studies, review of inpatient medication list Abdominal pain is improved. Still having pain with movement. Currently feeling nauseated. No bowel movements. Passed a small amount of gas today. No fever or chills. Gel seems to be helping his right shoulder pain Additional Comments: 6 system review negative. Please see pertinent positives in the history of present illness section. (Trixie Muller PA-C) Objective Vital Signs Date Time Temp Pulse Resp B/P Pulse Ox O2 Delivery O2 Flow Rate FiO2 11/08/16 08:35 Nasal Cannula 2.0 11/08/16 07:14 36.6 82 16 156/86 92 2.0 11/08/16 01:10 Nasal Cannula 2.0 11/07/16 22:58 36.8 86 16 133/77 94 Room Air 11/07/16 19:43 77 19 165/90 96 Nasal Cannula 2.0 11/07/16 15:27 36.3 67 16 180/102 96 Nasal Cannula 2.0 11/07/16 15:15 Nasal Cannula 2.0 11/07/16 14:14 62 168/90 92 Room Air 11/07/16 13:49 36.3 69 12 183/104 93 Room Air 11/07/16 13:08 76 18 136/79 95 (Trixie Muller PA-C) Physical Exam General Appearance: + mild distress Eyes: EOMI Neck: no JVD Respiratory/Chest: lungs clear Cardiovascular: regular rate, rhythm Abdomen: soft, + pertinent finding (bowel sounds present, but hypoactive. Tenderness to palpation noted particularly in the left upper quadrant.) Extremities: + pertinent finding (trace pitting edema in lower extremities without any erythema or tenderness appreciated bilaterally.) Neurologic/Psychiatric: no motor/sensory deficits, oriented x 3 Skin: warm/dry (Trixie Muller PA-C) Laboratory Results Last 24 Hours Test 11/07/16 17:51 11/08/16 00:19 11/08/16 06:12 11/08/16 08:03 Bedside Glucose 104 mg/dl 97 mg/dl 96 mg/dl White Blood Count 16.14 K/uL Red Blood Count 4.62 M/uL Hemoglobin 14.3 g/dL Hematocrit 41.7 % Mean Corpuscular Volume 90.3 fL Mean Corpuscular Hemoglobin 31.0 pg Mean Corpuscular Hemoglobin Concent 34.3 g/dl Platelet Count 103 K/uL Mean Platelet Volume 9.7 fL Neutrophils (%) (Auto) 87.0 % Lymphocytes (%) (Auto) 7.9 % Monocytes (%) (Auto) 4.7 % Eosinophils (%) (Auto) 0.1 % Basophils (%) (Auto) 0.1 % Neutrophils # (Auto) 14.04 K/uL Lymphocytes # (Auto) 1.27 K/uL Monocytes # (Auto) 0.76 K/uL Eosinophils # (Auto) 0.02 K/uL Basophils # (Auto) 0.01 K/uL RDW Standard Deviation 48.6 fL RDW Coefficient of Variation 14.6 % Immature Granulocyte % (Auto) 0.2 % Immature Granulocyte # (Auto) 0.04 K/uL Prothrombin Time 11.6 SECONDS Prothromb Time International Ratio 1.1 Sodium Level 137 mmol/L Potassium Level 3.8 mmol/L Chloride Level 103 mmol/L Carbon Dioxide Level 24 mmol/L Anion Gap 10.0 mmol/L Blood Urea Nitrogen 16 mg/dl Creatinine 0.88 mg/dl Est Creatinine Clear Calc Drug Dose 91.7 ml/min Estimated GFR () 98.8 Estimated GFR (Non- 85.2 BUN/Creatinine Ratio 17.8 Random Glucose 107 mg/dl Estimated Average Glucose 128 mg/dl Hemoglobin A1c 6.1 % Calcium Level 8.4 mg/dl Magnesium Level 2.0 mg/dl Triglycerides Level 97 mg/dl Cholesterol Level 123 mg/dl HDL Cholesterol 36 mg/dl LDL Cholesterol, Calculated 68 mg/dl VLDL Cholesterol, Calculated 19 mg/dl Cholesterol/HDL Ratio 3.4 Lipase 6385 U/L Test 11/08/16 11:44 Bedside Glucose 111 mg/dl (Trixie Muller, PA-C) Assessment and Plan 71-year-old male presents to the emergency department with diffuse abdominal pain and nausea. Initial abdominal plain films concerning for SBO. CT scan consistent with acute pancreatitis. Small calcified lesion noted in the pancreas. Lipase elevated at 33,000. Pancreatitis/ileus-sx improving, lipase improving. Etiology unclear-->?viral -GI consult for eval of pancreatic cystic lesion-? MRCP vs EUS -Continue NPO -LR decrease to 150 cc/hr -Continue Dilaudid 1 mg IV every 4 hours as needed for pain -Zofran 4 mg IV every 6 hours as needed for nausea -surgery following diabetes mellitus-BSGs stable. HgbA1C 6.1 -BSGs q 6 hr -Currently hold home regimen: Metformin 500 mg BID, glipizide ER 5 mg daily -insulin sliding scale HTN-BP stable -Hydralazine 10 mg IV q 6 hr PRN -Continue Norvasc 10 mg daily -Continue ramipril 10 mg BID R shoulder pain -continue Voltaren gel Gout -Continue allopurinol 300 mg daily DVT prophylaxis -Lovenox 40 mg subQ daily -TEDS, SCDs CODE STATUS -CPR ok, NO INTUBATION (Trixie Muller, PAShoshanaC) Attending Attestation: Pt seen/examined, chart reviewed, care plan d/w HARIKA Muller. I agree w/ the pathak components of her documentation. Pt feels better today but does still have abd pain (epigastric) and nausea. +flatus. no emesis. right shoulder pain better w/ voltaren gel. VSS, afebrile gen - nad mouth - MMM neck - no JVD heart - RRR, s1, s2 lungs - CTA b/l abd - softer/less distended, BS+ and improved; tender epigastric region (mild); no peritoneal signs ext - no edema lipase 6300 wbc count >12 BMP nl LFTs nl triglycerides normal A/P: 1. acute idiopathic pancreatitis - thus far etiology unclear. no h/o etoh use. no gallstones/biliary source on imaging. Ca normal. Triglycerides normal. no offending meds. no trauma. viral? given the ongoing pain will continue NPO status cont copious LR hydration pain meds repeat labs in AM 2. right shoulder bursitis/tendonitis - voltaren gel qid. 3. ileus - 2nd to #1 - supportive care appreciate GI consultation progressing Aris Jraamillo MD (Aris Jaramillo MD)
[2016-11-08 13:05] VITALS: O2SAT 92
[2016-11-08 14:57] VITALS: BP 152/87; PULSE 86; TEMP 36.4; O2SAT 90
[2016-11-08 23:46] VITALS: BP 157/97; PULSE 86; TEMP 36.8; O2SAT 92
[2016-11-09] MEDS: DICLOFENAC SOD 1% GEL 100 GM TUBE EXT SCH ×5 (00:09→23:33)
[2016-11-09] MEDS: LACTATED RINGER'S 1000ML 1,000 ML IV SCH ×5 (01:58→23:33)
[2016-11-09] MEDS: INSULIN ASPART 100 UNITS/ML 3 ML PEN SC SCH ×5 (05:59→21:00)
[2016-11-09 07:37] VITALS: BP 149/86; PULSE 84; TEMP 36.7; O2SAT 94
[2016-11-09 07:52] LABS: BASO % 0.1 %; BASO ABS # 0.02 K/uL (0-0.2); COMPLETE YES; EOS % 0.4 %; HEMATOCRIT 38.8 % (42-52); IG% 0.3 %; LYMPH % 6.9 %; LYMPH ABS # 1.09 K/uL (1.2-3.4); MEAN CORPUSCULAR HEMOGLOBIN 31.3 pg (25-34); MEAN CORPUSCULAR HGB CONC 34.8 g/dl (32-36); MEAN PLATELET VOLUME 9.2 fL (7.4-10.4); MONO % 4.9 %; NEUT % 87.4 %; PLATELET COUNT 112 K/uL (130-400); RED BLOOD COUNT 4.31 M/uL (4.7-6.1); WHITE BLOOD COUNT 15.81 K/uL (4.8-10.8)
[2016-11-09 08:25] LABS: BUN/CREATININE RATIO 13.7 (10-20); CALCIUM 8.7 mg/dl (8.5-10.1); CREATININE 0.79 mg/dl (0.60-1.40); POTASSIUM 3.7 mmol/L (3.5-5.1)
[2016-11-09] MEDS: AMLODIPINE BESYLATE 5 MG TAB PO SCH (08:37)
[2016-11-09] MEDS: ATORVASTATIN 40 MG TAB PO SCH (08:37)
[2016-11-09] MEDS: ALLOPURINOL 300 MG TAB PO SCH (08:37)
[2016-11-09] MEDS: ENALAPRIL MALEATE 10 MG TAB PO SCH ×2 (08:38→21:26)
[2016-11-09] MEDS: ENOXAPARIN 40 MG/0.4 ML SYR SQ SCH (08:39)
--- NOTE | 2016-11-09 09:02 | EMERGENCY ROOM VISIT NOTE ---
ED Visit Note First contact with patient: 09:27 I have personally seen and evaluated the patient with the PA. I agree with the diagnosis and management decisions and have been personally involved in the case. Please see Wolfgang Mills PA-C's notes for further details of the history, physical and visit.
[2016-11-09] MEDS ORDERED: BISACODYL 10 MG SUPP PR STA ×2 (09:56→11:20)
[2016-11-09] MEDS ORDERED: NURSING VERBAL MED ORDER ONE (11:00)
[2016-11-09] MEDS: PANTOprazole INJ 40 MG in SYRINGE 0 ML IV SCH (11:09)
--- NOTE | 2016-11-09 11:23 | Surgery Progress Note ---
Surgery Progress Note Date of Service Nov 09, 2016. Subjective Post OP Day: HD # 2 + ambulating, + feeling well, + flatus, + pain controlled, No SOB, No bowel movement, No chest pain, No nausea, No vomiting Objective Vital Signs: Date Time Temp Pulse Resp B/P Pulse Ox O2 Delivery O2 Flow Rate FiO2 11/09/16 07:37 36.7 84 16 149/86 94 Room Air 11/09/16 07:20 Room Air 11/09/16 00:15 Room Air 11/08/16 23:46 36.8 86 16 157/97 92 Room Air 11/08/16 14:57 36.4 86 18 152/87 90 11/08/16 13:05 92 Room Air General Appearance: WD/WN, no apparent distress Head: normocephalic, atraumatic Respiratory/Chest: no respiratory distress, no accessory muscle use Abdomen: soft, + distended, + tenderness (epigastric region) Laboratory Results: Results Past 24 Hours Test 11/08/16 11:44 11/08/16 18:16 11/09/16 00:02 11/09/16 05:54 Range/Units Bedside Glucose 111 116 116 125 70-99 mg/dl Test 11/09/16 07:28 Range/Units White Blood Count 15.81 4.8-10.8 K/uL Red Blood Count 4.31 4.7-6.1 M/uL Hemoglobin 13.5 14.0-18.0 g/dL Hematocrit 38.8 42-52 % Mean Corpuscular Volume 90.0 80-100 fL Mean Corpuscular Hemoglobin 31.3 25-34 pg Mean Corpuscular Hemoglobin Concent 34.8 32-36 g/dl Platelet Count 112 130-400 K/uL Mean Platelet Volume 9.2 7.4-10.4 fL Neutrophils (%) (Auto) 87.4 % Lymphocytes (%) (Auto) 6.9 % Monocytes (%) (Auto) 4.9 % Eosinophils (%) (Auto) 0.4 % Basophils (%) (Auto) 0.1 % Neutrophils # (Auto) 13.81 1.4-6.5 K/uL Lymphocytes # (Auto) 1.09 1.2-3.4 K/uL Monocytes # (Auto) 0.78 0.11-0.59 K/uL Eosinophils # (Auto) 0.07 0-0.5 K/uL Basophils # (Auto) 0.02 0-0.2 K/uL RDW Standard Deviation 47.3 36.4-46.3 fL RDW Coefficient of Variation 14.2 11.5-14.5 % Immature Granulocyte % (Auto) 0.3 % Immature Granulocyte # (Auto) 0.04 0.00-0.02 K/uL Sodium Level 139 136-145 mmol/L Potassium Level 3.7 3.5-5.1 mmol/L Chloride Level 103 98-107 mmol/L Carbon Dioxide Level 27 21-32 mmol/L Anion Gap 9.0 3-11 mmol/L Blood Urea Nitrogen 11 7-18 mg/dl Creatinine 0.79 0.60-1.40 mg/dl Est Creatinine Clear Calc Drug Dose 102.1 ml/min Estimated GFR () 103.2 Estimated GFR (Non- 89.1 BUN/Creatinine Ratio 13.7 10-20 Random Glucose 137 70-99 mg/dl Calcium Level 8.7 8.5-10.1 mg/dl Total Bilirubin 0.7 0.2-1 mg/dl Direct Bilirubin 0.2 0-0.2 mg/dl Aspartate Amino Transf (AST/SGOT) 15 15-37 U/L Alanine Aminotransferase (ALT/SGPT) 9 12-78 U/L Alkaline Phosphatase 57 45-117 U/L Total Protein 6.4 6.4-8.2 gm/dl Albumin 2.8 3.4-5.0 gm/dl Lipase 544 73-393 U/L Assessment & Plan Acute Pancreatitis Ileus - + flatus - no bowel movement - abdominal pain slightly improving - lipase decreased to 544 - slight abdominal distention - no vomiting PLAN: Continue clear liquids, diet managed by GI Ordered Dulcolax suppository and patient had two small bowel movements. Patient with no nausea or vomiting and passing flatus, believe he has more of an Ileus than partial SBO. No acute abdomen No surgical indication at this time Our service signing off, please call with any questions or concerns Dr. Segura has seen patient and agrees with above assessment and plan.
--- NOTE | 2016-11-09 12:24 | Gastroenterology Progress Note ---
Progress Note Date of Service: Nov 09, 2016 Subjective Pt evaluation today including: conversation w/ patient, physical exam, chart review, lab review, review of studies, review of inpatient medication list Pt still having some RUQ abd tenderness but improved. He is passing flatus, no BM yet. Still NPO except sips and chips, reports feeling thirsty. Noted LFTs still remain normal. Lipase went down to 544 from >32K on admission. Review of Systems Constitutional: No chills, No fever Respiratory: No cough, No shortness of breath Cardiac: No chest pain Abdomen: + pain, No nausea, No vomiting Skin: No itch, No jaundice, No rash Medications Current Inpatient Medications Medications (Trade) Dose Ordered Sig/Emre Route Start Time Stop Time Status Last Admin Dose Admin Hydromorphone HCl 1 mg 1 mg Q4H PRN IV 11/07/16 11:58 11/21/16 11:57 11/07/16 20:57 1 MG Lactated Ringer's (Lr 1000ml) 1,000 ml @ 200 mls/hr Q5H IV 11/07/16 12:00 12/07/16 11:59 11/09/16 08:35 200 MLS/HR Hydralazine HCl (HydrALAZINE INJ) 10 mg Q6H PRN IV. 11/07/16 12:00 12/07/16 11:59 11/07/16 15:49 10 MG Acetaminophen (Tylenol Tab) 650 mg Q4H PRN PO 11/07/16 12:00 12/07/16 11:59 11/08/16 20:49 650 MG Ondansetron HCl (Zofran Inj) 4 mg Q6H PRN IV 11/07/16 12:00 12/07/16 11:59 11/08/16 09:58 4 MG Allopurinol (Zyloprim Tab) 300 mg QAM PO 11/08/16 09:00 12/08/16 08:59 11/09/16 08:37 300 MG Amlodipine Besylate (Norvasc Tab) 10 mg QAM PO 11/08/16 09:00 12/08/16 08:59 11/09/16 08:37 10 MG Atorvastatin Calcium 40 mg 40 mg QAM PO 11/08/16 09:00 12/08/16 08:59 11/09/16 08:37 40 MG Pantoprazole Sodium/Syringe (Protonix Inj/ Syringe) 10 ml @ 5 mls/min DAILY@11 IV 11/08/16 11:00 12/08/16 10:59 11/09/16 11:09 5 MLS/MIN Ioversol (Optiray 320) 125 ml UD PRN IV 11/07/16 12:15 11/11/16 12:14 Enoxaparin Sodium (Lovenox Inj) 40 mg QAM SQ 11/08/16 09:00 12/08/16 08:59 11/09/16 08:39 40 MG Glucose (Glucose 40% Gel) 15-30 GRAMS 15 GRAMS... UD PRN PO 11/07/16 14:15 12/07/16 14:14 Glucose (Glucose Chew Tab) 4-8 Tablets 4 Tabl... UD PRN PO 11/07/16 14:15 12/07/16 14:14 Dextrose (Dextrose 50% 50ML Syringe) 25-50ML OF 50% DW IV FOR... UD PRN IV 11/07/16 14:15 12/07/16 14:14 Glucagon (Glucagon Inj) 1 mg UD PRN SQ 11/07/16 14:15 12/07/16 14:14 Diclofenac Sodium (Voltaren 1% Top Gel) 4 appln Q6H EXT 11/07/16 18:00 12/07/16 17:59 11/09/16 05:59 4 APPLN Enalapril Maleate (Vasotec Tab) 20 mg BID PO 11/07/16 21:00 12/07/16 20:59 11/09/16 08:38 20 MG Insulin Aspart (novoLOG ASPART) SLIDING SCALE G... ACHS SC 11/09/16 12:00 12/09/16 11:59 Objective Vital Signs Date Time Temp Pulse Resp B/P Pulse Ox O2 Delivery O2 Flow Rate FiO2 11/09/16 07:37 36.7 84 16 149/86 94 Room Air 11/09/16 07:20 Room Air 11/09/16 00:15 Room Air 11/08/16 23:46 36.8 86 16 157/97 92 Room Air 11/08/16 14:57 36.4 86 18 152/87 90 11/08/16 13:05 92 Room Air Physical Exam General Appearance: WD/WN, no apparent distress, + obese Eyes: normal inspection, PERRL, EOMI Neck: supple, no JVD, trachea midline Respiratory/Chest: normal breath sounds, no respiratory distress, no accessory muscle use Cardiovascular: regular rate, rhythm, no gallop, no murmur Abdomen: normal bowel sounds, soft, + tenderness (RUQ) Extremities: normal inspection, no pedal edema, no calf tenderness Neurologic/Psych: alert, normal mood/affect, oriented x 3 Skin: normal color, no jaundice, no rash Laboratory Results Last 24 Hours Test 11/08/16 18:16 11/09/16 00:02 11/09/16 05:54 11/09/16 07:28 Bedside Glucose 116 mg/dl 116 mg/dl 125 mg/dl White Blood Count 15.81 K/uL Red Blood Count 4.31 M/uL Hemoglobin 13.5 g/dL Hematocrit 38.8 % Mean Corpuscular Volume 90.0 fL Mean Corpuscular Hemoglobin 31.3 pg Mean Corpuscular Hemoglobin Concent 34.8 g/dl Platelet Count 112 K/uL Mean Platelet Volume 9.2 fL Neutrophils (%) (Auto) 87.4 % Lymphocytes (%) (Auto) 6.9 % Monocytes (%) (Auto) 4.9 % Eosinophils (%) (Auto) 0.4 % Basophils (%) (Auto) 0.1 % Neutrophils # (Auto) 13.81 K/uL Lymphocytes # (Auto) 1.09 K/uL Monocytes # (Auto) 0.78 K/uL Eosinophils # (Auto) 0.07 K/uL Basophils # (Auto) 0.02 K/uL RDW Standard Deviation 47.3 fL RDW Coefficient of Variation 14.2 % Immature Granulocyte % (Auto) 0.3 % Immature Granulocyte # (Auto) 0.04 K/uL Sodium Level 139 mmol/L Potassium Level 3.7 mmol/L Chloride Level 103 mmol/L Carbon Dioxide Level 27 mmol/L Anion Gap 9.0 mmol/L Blood Urea Nitrogen 11 mg/dl Creatinine 0.79 mg/dl Est Creatinine Clear Calc Drug Dose 102.1 ml/min Estimated GFR () 103.2 Estimated GFR (Non- 89.1 BUN/Creatinine Ratio 13.7 Random Glucose 137 mg/dl Calcium Level 8.7 mg/dl Total Bilirubin 0.7 mg/dl Direct Bilirubin 0.2 mg/dl Aspartate Amino Transf (AST/SGOT) 15 U/L Alanine Aminotransferase (ALT/SGPT) 9 U/L Alkaline Phosphatase 57 U/L Total Protein 6.4 gm/dl Albumin 2.8 gm/dl Lipase 544 U/L Assessment and Plan Pt is a 71 y/o male admitted for acute pancreatitis (Lipase >32K, abd pain, CT evidence of peripancreatic edema, w 2.2cm calcified cystic lesion on panc body) . ? SBO on xray. Unclear etiology for acute pancreatitis as pt has no evidence of gallstones, denies ETOH consumption since May and denies ETOH abuse, denies also any recent medication changes. He's been treated w bowel rest, LR IVF hydration, symptomatic management for pain and nausea. Lipase dropped to 544, LFTs remain normal. He's having less RUQ abd pain, no n/v. Tolerating ice chips. He is passing flatus but no BMs yet. PLANS: - Obtain KUB to re-eval ? SBO. Likely he has an ileus instead of true SBO. Will consider adding Relistor to his med regimen. - Decrease LR to 150ml/hr - Start CL diet - Plan for outpt EUS eval of panc cyst and to r/o possible small gallstones in 6 week's time. - Symptomatic management. I have seen and evaluated the patient. He presented with what appears to be acute pancreatitis which is slowly resolving with conservative management. I suspect that his distention is related to an ileus as result of his acute pancreatitis Recommendations Continue with IV hydration as you're doing Repeat KUB today if possible\ May give a clear liquid diet
--- NOTE | 2016-11-09 13:43 | Hospitalist Progress Note ---
Hospitalist Progress Note Date of Service Nov 09, 2016. (Trixie Muller PA-C) Subjective Pt evaluation today including: conversation w/ patient, physical exam, chart review, lab review, review of inpatient medication list Patient reports pain and nausea are both very much improved. He still feels slightly distended. He is passing gas. No bowel movements yet. No fever or chills. Additional Comments: 6 system review negative. Please see pertinent positives in the history of present illness section. (Trixie Muller PA-C) Objective Vital Signs Date Time Temp Pulse Resp B/P Pulse Ox O2 Delivery O2 Flow Rate FiO2 11/09/16 07:37 36.7 84 16 149/86 94 Room Air 11/09/16 07:20 Room Air 11/09/16 00:15 Room Air 11/08/16 23:46 36.8 86 16 157/97 92 Room Air 11/08/16 14:57 36.4 86 18 152/87 90 (Trixie Muller PA-C) Physical Exam General Appearance: no apparent distress Eyes: EOMI ENT: + pertinent finding (oral mucosa fairly moist. No exudate noted.) Neck: no JVD Respiratory/Chest: lungs clear Cardiovascular: regular rate, rhythm Abdomen: soft, + pertinent finding (more bowel sounds present today. Mild tenderness to palpation in the left upper quadrant.) Extremities: non-tender, no pedal edema Neurologic/Psychiatric: no motor/sensory deficits, oriented x 3 Skin: warm/dry (Trixie Muller PA-C) Laboratory Results 11/09/16 07:28 Red Blood Count 4.31, Mean Corpuscular Volume 90.0, Mean Corpuscular Hemoglobin 31.3, Mean Corpuscular Hemoglobin Concent 34.8, Mean Platelet Volume 9.2, Neutrophils (%) (Auto) 87.4, Lymphocytes (%) (Auto) 6.9, Monocytes (%) (Auto) 4.9, Eosinophils (%) (Auto) 0.4, Basophils (%) (Auto) 0.1, Neutrophils # (Auto) 13.81, Lymphocytes # (Auto) 1.09, Monocytes # (Auto) 0.78, Eosinophils # (Auto) 0.07, Basophils # (Auto) 0.02 11/09/16 07:28 Test 11/09/16 07:28 11/09/16 12:09 White Blood Count 15.81 K/uL (4.8-10.8) Red Blood Count 4.31 M/uL (4.7-6.1) Hemoglobin 13.5 g/dL (14.0-18.0) Hematocrit 38.8 % (42-52) Mean Corpuscular Volume 90.0 fL (80-100) Mean Corpuscular Hemoglobin 31.3 pg (25-34) Mean Corpuscular Hemoglobin Concent 34.8 g/dl (32-36) Platelet Count 112 K/uL (130-400) Mean Platelet Volume 9.2 fL (7.4-10.4) Neutrophils (%) (Auto) 87.4 % Lymphocytes (%) (Auto) 6.9 % Monocytes (%) (Auto) 4.9 % Eosinophils (%) (Auto) 0.4 % Basophils (%) (Auto) 0.1 % Neutrophils # (Auto) 13.81 K/uL (1.4-6.5) Lymphocytes # (Auto) 1.09 K/uL (1.2-3.4) Monocytes # (Auto) 0.78 K/uL (0.11-0.59) Eosinophils # (Auto) 0.07 K/uL (0-0.5) Basophils # (Auto) 0.02 K/uL (0-0.2) RDW Standard Deviation 47.3 fL (36.4-46.3) RDW Coefficient of Variation 14.2 % (11.5-14.5) Immature Granulocyte % (Auto) 0.3 % Immature Granulocyte # (Auto) 0.04 K/uL (0.00-0.02) Anion Gap 9.0 mmol/L (3-11) Est Creatinine Clear Calc Drug Dose 102.1 ml/min Estimated GFR () 103.2 Estimated GFR (Non- 89.1 BUN/Creatinine Ratio 13.7 (10-20) Calcium Level 8.7 mg/dl (8.5-10.1) Total Bilirubin 0.7 mg/dl (0.2-1) Direct Bilirubin 0.2 mg/dl (0-0.2) Aspartate Amino Transf (AST/SGOT) 15 U/L (15-37) Alanine Aminotransferase (ALT/SGPT) 9 U/L (12-78) Alkaline Phosphatase 57 U/L (45-117) Total Protein 6.4 gm/dl (6.4-8.2) Albumin 2.8 gm/dl (3.4-5.0) Lipase 544 U/L (73-393) Bedside Glucose 144 mg/dl (70-99) Last 24 Hours Test 11/08/16 18:16 11/09/16 00:02 11/09/16 05:54 11/09/16 07:28 Bedside Glucose 116 mg/dl 116 mg/dl 125 mg/dl White Blood Count 15.81 K/uL Red Blood Count 4.31 M/uL Hemoglobin 13.5 g/dL Hematocrit 38.8 % Mean Corpuscular Volume 90.0 fL Mean Corpuscular Hemoglobin 31.3 pg Mean Corpuscular Hemoglobin Concent 34.8 g/dl Platelet Count 112 K/uL Mean Platelet Volume 9.2 fL Neutrophils (%) (Auto) 87.4 % Lymphocytes (%) (Auto) 6.9 % Monocytes (%) (Auto) 4.9 % Eosinophils (%) (Auto) 0.4 % Basophils (%) (Auto) 0.1 % Neutrophils # (Auto) 13.81 K/uL Lymphocytes # (Auto) 1.09 K/uL Monocytes # (Auto) 0.78 K/uL Eosinophils # (Auto) 0.07 K/uL Basophils # (Auto) 0.02 K/uL RDW Standard Deviation 47.3 fL RDW Coefficient of Variation 14.2 % Immature Granulocyte % (Auto) 0.3 % Immature Granulocyte # (Auto) 0.04 K/uL Sodium Level 139 mmol/L Potassium Level 3.7 mmol/L Chloride Level 103 mmol/L Carbon Dioxide Level 27 mmol/L Anion Gap 9.0 mmol/L Blood Urea Nitrogen 11 mg/dl Creatinine 0.79 mg/dl Est Creatinine Clear Calc Drug Dose 102.1 ml/min Estimated GFR () 103.2 Estimated GFR (Non- 89.1 BUN/Creatinine Ratio 13.7 Random Glucose 137 mg/dl Calcium Level 8.7 mg/dl Total Bilirubin 0.7 mg/dl Direct Bilirubin 0.2 mg/dl Aspartate Amino Transf (AST/SGOT) 15 U/L Alanine Aminotransferase (ALT/SGPT) 9 U/L Alkaline Phosphatase 57 U/L Total Protein 6.4 gm/dl Albumin 2.8 gm/dl Lipase 544 U/L Test 11/09/16 12:09 Bedside Glucose 144 mg/dl (Trixie Muller PA-C) Assessment and Plan 71-year-old male presents to the emergency department with diffuse abdominal pain and nausea. Initial abdominal plain films concerning for SBO. CT scan consistent with acute pancreatitis. Small calcified cystic lesion noted in the pancreas. Lipase elevated at 33,000. Pancreatitis/ileus-sx improving. Etiology unclear-->?viral -Appreciate GI recs-->f/u outpt for EUS for pancreatitis lesion and eval of biliary tree -Advance diet to Clears -Will continue LR @ 200 cc/hr per GI recs for today--seems to be tolerating well. No signs of fluid overload on exam. -will d/c dilaudid-not using. Continue tylenol PRN -will give one dose Dulcolax supp x 1 to see if it will help bring on BM diabetes mellitus-BSGs stable. HgbA1C 6.1 -BSGs q 6 hr -Will restart po meds tomorrow if diet is advanced: Metformin 500 mg BID, glipizide ER 5 mg daily -insulin sliding scale HTN-BP stable -Hydralazine 10 mg IV q 6 hr PRN -Continue Norvasc 10 mg daily -Continue ramipril 10 mg BID R shoulder pain -continue Voltaren gel Gout -Continue allopurinol 300 mg daily DVT prophylaxis -Lovenox 40 mg subQ daily -TEDS, SCDs CODE STATUS -CPR ok, NO INTUBATION (Trixie Muller, EMMANUELC) Attending Attestation: Pt seen/examined, chart reviewed, care plan d/w HARIKA Muller. I agree w/ the pathak components of her documentation. Less bloating/distension. No nausea/emesis. Pain improved. +flatus. ambulating well. VSS, afebrile gen - nad mouth - MMM neck - no JVD heart - RRR, s1, s2 lungs - CTA b/l abd - less distended once again today, BS+ and not as hypoactive; no tenderness today ext - no edema lipase 544 BMP nl LFTs nl A/P: 1. acute idiopathic pancreatitis - etiology unclear. markedly improved. viral? agree with starting clears. continue LR at current rate. outpatient EUS by [facility] appreciate GI consultation. 2. right shoulder bursitis/tendonitis - voltaren gel qid. improved. 3. ileus - 2nd to #1 - supportive care improving agree with dulcolax suppos updated at bedside Aris Jaramillo MD (Aris Jaramillo MD)
--- NOTE | 2016-11-09 14:45 | DIAGNOSTIC IMAGING REPORT ---
KUB CLINICAL HISTORY: Generalized abdominal pain. Pancreatitis. FINDINGS: 3 AP supine abdominal radiographs are correlated with abdominal CT dated 11/07/2016. There is a nonobstructed abdominal bowel gas pattern. Moderate colonic fecal retention is observed. Suture material is noted in the pelvis. Mild gaseous distention of the small bowel and colon could represent ileus. No evidence of intraperitoneal free air is seen on these supine views. Calcified phlebolith are noted in the pelvis. The skeletal structures are osteopenic. Lumbosacral spondylosis is noted. IMPRESSION: 1. There is no radiographic evidence of bowel obstruction. 2. Mild gaseous distention of the small bowel and colon may represent ileus. 3. Moderate colonic fecal retention. Electronically signed by: Roni Workman M.D. 11/09/2016 2:44 PM Dictated Date/Time: 11/09/2016 2:42 PM
[2016-11-09 15:43] VITALS: BP 117/60; PULSE 81; TEMP 36.6; O2SAT 95
[2016-11-09 21:25] VITALS: BP 141/85; PULSE 84
[2016-11-09 22:52] VITALS: BP 145/86; PULSE 72; TEMP 36.7; O2SAT 93
[2016-11-10] MEDS: LACTATED RINGER'S 1000ML 1,000 ML IV SCH ×2 (04:49→09:17)
[2016-11-10] MEDS: DICLOFENAC SOD 1% GEL 100 GM TUBE EXT SCH ×2 (05:38→13:15)
[2016-11-10 06:00] LABS: CREATININE 0.78 mg/dl (0.60-1.40)
[2016-11-10 06:48] LABS: BASO % 0.1 %; BASO ABS # 0.01 K/uL (0-0.2); COMPLETE YES; EOS % 1.6 %; HEMATOCRIT 36.3 % (42-52); IG% 0.2 %; LYMPH % 10.7 %; LYMPH ABS # 1.27 K/uL (1.2-3.4); MEAN CELL VOLUME 89.9 fL (80-100); MEAN CORPUSCULAR HEMOGLOBIN 31.2 pg (25-34); MEAN CORPUSCULAR HGB CONC 34.7 g/dl (32-36); MEAN PLATELET VOLUME 9.4 fL (7.4-10.4); MONO % 6.4 %; PLATELET COUNT 129 K/uL (130-400); RED BLOOD COUNT 4.04 M/uL (4.7-6.1); WHITE BLOOD COUNT 11.84 K/uL (4.8-10.8)
[2016-11-10 07:32] VITALS: BP 137/85; PULSE 82; TEMP 36.7; O2SAT 96
[2016-11-10] MEDS ORDERED: BISACODYL 5 MG TABEC PO ONE (08:30)
[2016-11-10] MEDS: ALLOPURINOL 300 MG TAB PO SCH (08:31)
[2016-11-10] MEDS: ATORVASTATIN 40 MG TAB PO SCH (08:33)
[2016-11-10] MEDS: ENALAPRIL MALEATE 10 MG TAB PO SCH (08:34)
[2016-11-10] MEDS: ENOXAPARIN 40 MG/0.4 ML SYR SQ SCH (08:36)
[2016-11-10] MEDS: AMLODIPINE BESYLATE 5 MG TAB PO SCH (08:42)
[2016-11-10] MEDS: INSULIN ASPART 100 UNITS/ML 3 ML PEN SC SCH ×2 (09:14→13:12)
[2016-11-10] MEDS ORDERED: PANTOprazole SOD 40 MG TAB PO SCH (09:45)
--- NOTE | 2016-11-10 09:58 | Gastroenterology Progress Note ---
Progress Note Date of Service: Nov 10, 2016 Subjective Pt evaluation today including: conversation w/ patient, physical exam, chart review, lab review, review of inpatient medication list Pt feels well, afebrile overnight. Denies any more abd pain, any n/v. Tolerating CL diet, will be advanced to [place]. He is passing flatus, had a small BM overnight. Review of Systems Constitutional: No chills, No fever Respiratory: No cough, No shortness of breath Cardiac: No chest pain, No edema Abdomen: No nausea, No pain, No vomiting Medications Current Inpatient Medications Medications (Trade) Dose Ordered Sig/Emre Route Start Time Stop Time Status Last Admin Dose Admin Lactated Ringer's (Lr 1000ml) 1,000 ml @ 100 mls/hr Q10H IV 11/07/16 12:00 12/07/16 11:59 11/10/16 09:17 200 MLS/HR Hydralazine HCl (HydrALAZINE INJ) 10 mg Q6H PRN IV. 11/07/16 12:00 12/07/16 11:59 11/07/16 15:49 10 MG Acetaminophen (Tylenol Tab) 650 mg Q4H PRN PO 11/07/16 12:00 12/07/16 11:59 11/08/16 20:49 650 MG Ondansetron HCl (Zofran Inj) 4 mg Q6H PRN IV 11/07/16 12:00 12/07/16 11:59 11/08/16 09:58 4 MG Allopurinol (Zyloprim Tab) 300 mg QAM PO 11/08/16 09:00 12/08/16 08:59 11/10/16 08:31 300 MG Amlodipine Besylate (Norvasc Tab) 10 mg QAM PO 11/08/16 09:00 12/08/16 08:59 11/10/16 08:42 10 MG Atorvastatin Calcium (Lipitor Tab) 40 mg QAM PO 11/08/16 09:00 12/08/16 08:59 11/10/16 08:33 40 MG Ioversol (Optiray 320) 125 ml UD PRN IV 11/07/16 12:15 11/11/16 12:14 Enoxaparin Sodium (Lovenox Inj) 40 mg QAM SQ 11/08/16 09:00 12/08/16 08:59 11/10/16 08:36 40 MG Glucose (Glucose 40% Gel) 15-30 GRAMS 15 GRAMS... UD PRN PO 11/07/16 14:15 12/07/16 14:14 Glucose (Glucose Chew Tab) 4-8 Tablets 4 Tabl... UD PRN PO 11/07/16 14:15 12/07/16 14:14 Dextrose (Dextrose 50% 50ML Syringe) 25-50ML OF 50% DW IV FOR... UD PRN IV 11/07/16 14:15 12/07/16 14:14 Glucagon (Glucagon Inj) 1 mg UD PRN SQ 11/07/16 14:15 12/07/16 14:14 Diclofenac Sodium (Voltaren 1% Top Gel) 4 appln Q6H EXT 11/07/16 18:00 12/07/16 17:59 11/10/16 05:38 4 APPLN Enalapril Maleate (Vasotec Tab) 20 mg BID PO 11/07/16 21:00 12/07/16 20:59 11/10/16 08:34 20 MG Insulin Aspart (novoLOG ASPART) SLIDING SCALE G... ACHS SC 11/09/16 12:00 12/09/16 11:59 11/10/16 09:14 3 UNITS Polyethylene (Miralax Powder Packet) 17 gm BID PO 11/10/16 21:00 12/10/16 20:59 Pantoprazole Sodium (Protonix Tab) 40 mg QAM PO 11/10/16 09:45 12/10/16 09:44 Objective Vital Signs Date Time Temp Pulse Resp B/P Pulse Ox O2 Delivery O2 Flow Rate FiO2 11/10/16 07:32 36.7 82 18 137/85 96 Room Air 11/09/16 23:35 18 11/09/16 23:35 Room Air 11/09/16 22:52 36.7 72 22 145/86 93 Room Air 11/09/16 21:25 84 141/85 11/09/16 16:10 Room Air 11/09/16 15:43 36.6 81 16 117/60 95 Room Air Physical Exam General Appearance: WD/WN, no apparent distress, + obese Eyes: normal inspection, PERRL, EOMI Neck: supple, no JVD, trachea midline Respiratory/Chest: normal breath sounds, no respiratory distress, no accessory muscle use Cardiovascular: regular rate, rhythm, no gallop, no murmur Abdomen: normal bowel sounds, non tender, + distended (mild) Extremities: normal inspection, no pedal edema, no calf tenderness Neurologic/Psych: alert, normal mood/affect, oriented x 3 Skin: normal color, no jaundice, no rash Laboratory Results Last 24 Hours Test 11/09/16 12:09 11/09/16 17:00 11/09/16 21:15 11/10/16 04:58 Bedside Glucose 144 mg/dl 117 mg/dl 129 mg/dl White Blood Count 11.84 K/uL Red Blood Count 4.04 M/uL Hemoglobin 12.6 g/dL Hematocrit 36.3 % Mean Corpuscular Volume 89.9 fL Mean Corpuscular Hemoglobin 31.2 pg Mean Corpuscular Hemoglobin Concent 34.7 g/dl Platelet Count 129 K/uL Mean Platelet Volume 9.4 fL Neutrophils (%) (Auto) 81.0 % Lymphocytes (%) (Auto) 10.7 % Monocytes (%) (Auto) 6.4 % Eosinophils (%) (Auto) 1.6 % Basophils (%) (Auto) 0.1 % Neutrophils # (Auto) 9.59 K/uL Lymphocytes # (Auto) 1.27 K/uL Monocytes # (Auto) 0.76 K/uL Eosinophils # (Auto) 0.19 K/uL Basophils # (Auto) 0.01 K/uL RDW Standard Deviation 47.0 fL RDW Coefficient of Variation 14.2 % Immature Granulocyte % (Auto) 0.2 % Immature Granulocyte # (Auto) 0.02 K/uL Creatinine 0.78 mg/dl Est Creatinine Clear Calc Drug Dose 103.4 ml/min Estimated GFR () 103.8 Estimated GFR (Non- 89.6 Lipase 154 U/L Chemistry Specimen Hemolysis Test 11/10/16 08:17 Bedside Glucose 164 mg/dl Assessment and Plan Pt is a 71 y/o male admitted for acute pancreatitis (Lipase >32K, abd pain, CT evidence of peripancreatic edema, w 2.2cm calcified cystic lesion on panc body) . ? SBO on xray. Unclear etiology for acute pancreatitis as pt has no evidence of gallstones, denies ETOH consumption since May and denies ETOH abuse, denies also any recent medication changes. LFTs remained normal, Lipase normalized. He feels well, denies any more abd pain , n/v, tolerating CL diet. KUB yesterday showing ileus. He is passing flatus and had a small BM at PM. PLANS: - Repeat KUB - Miralax 17g BID; keep this bowel regimen upon DC - Decrease LR to 100ml/hr - Advance diet as tolerated. - Protonix 40mg PO daily - Plan for outpt EUS eval of panc cyst and to r/o possible small gallstones in 6 week's time. - Symptomatic management. - OK for DC from GI standpoint by end of day or tomorrow AM if continues to do well and ileus improving. I saw and evaluated the patient. He notes that he is feeling very well today and no longer has any abdominal discomfort. Moving his bowels and did have a small bowel movement yesterday. The patient would prefer to go home today if possible. Recommendations MiraLAX twice daily as above Outpatient endoscopic ultrasound to be scheduled in 6-8 weeks Please call with any questions or concerns
[2016-11-10] MEDS ORDERED: DOCU100C31 PO (11:27)
[2016-11-10] MEDS ORDERED: VLTG EXT (11:27)
[2016-11-10] MEDS ORDERED: MRLP17 PO (11:27)
--- NOTE | 2016-11-10 11:38 | Discharge Instructions ---
Discharge Instructions Admission Reason for Admission: SBO (Trixie Muller PA-C) Discharge Discharge Diagnosis / Problem: pancreatitis, ileus (Trixie Muller PA-C) Discharge Goals Goal(s): Decrease discomfort, Improve function, Diagnostic testing (Trixie Muller PA-C) Activity Recommendations Activity Limitations: resume your previous activity . (Trixie Muller PA-C) Instructions / Follow-Up Instructions / Follow-Up You have been treated in the hospital for pancreatitis and an ileus (slow moving bowels). We also found a small spot on your pancreas that needs further evaluation It is very important for you to stay well hydrated over the next week. The following changes/additions have been made to your medication list: -Miralax powder twice daily for 3 days (hold for diarrhea) -Docusate 100 mg by mouth twice daily for 7 days (hold for diarrhea) -voltaren gel may be applied to the right shoulder every 6 hours as needed for pain Please follow up with your primary care physician in 1 week Please follow up with the GI doctor as scheduled in 6 weeks. They will be scheduling you for a procedure to evaluate the abnormal spot noticed on your pancreas Call your doctor or return to the emergency department if you have any of the following symptoms: -Fever of 101F or greater -Persistent vomiting - Persistent diarrhea -Lethargy -Chest pain -Shortness of breath -severe dizziness -weakness on one side of your body (Trixie Muller PA-C) Current Hospital Diet Patient's current hospital diet: Diabetes Type 2 Diet, Full Liquid Diet (Trixie Muller PA-C) Discharge Diet Recommended Diet: Diabetes Type 2 Diet (Trixie Muller PA-C) Procedures Procedures Performed: CT abdomen and pelvis 1. Findings consistent with pancreatitis. 2. Moderate peripancreatic infiltrative change as well as mild scattered ascites. 3. No evidence for drainable abscess collection or bowel obstructive change. 4. Several renal cysts including an upper pole right renal hyperdense cyst unchanged from prior. 5. Small infrarenal aneurysm unchanged in the prior study of the abdominal aorta. (Trixie Muller PA-C) Pending Studies Studies pending at discharge: no (Trixie Muller PA-C) Laboratory Results Hemoglobin A1c Test 11/08/16 08:03 Range/Units Estimated Average Glucose 128 mg/dl Hemoglobin A1c 6.1 H 4.5-5.6 % Lipid Panel Test 11/08/16 08:03 Range/Units Triglycerides Level 97 0-150 mg/dl Cholesterol Level 123 0-200 mg/dl HDL Cholesterol 36 mg/dl Cholesterol/HDL Ratio 3.4 LDL Cholesterol, Calculated 68 mg/dl (Trixie Mulelr PA-C) Medical Emergencies . Who to Call and When: Medical Emergencies: If at any time you feel your situation is an emergency, please call 911 immediately. . (Trixie Muller PA-C) Non-Emergent Contact Non-Emergency issues call your: Primary Care Provider . (Trixie Muller PA-C) . "Provider Documentation" section prepared by Trixie Muller. (Trixie Muller PA-C) Attending Attestation: Pt seen/examined, and care plan d/w HARIKA Muller on day of discharge. I agree with her discharge instructions as outlined. Aris Jaramillo MD (Aris Jaramillo MD) VTE Core Measure Inpt VTE Proph given/why not?: Enoxaparin (Lovenox)SQ, T.E.D. Stockings, SCD's (Trixie Muller PA-C)
--- NOTE | 2016-11-10 11:51 | DIAGNOSTIC IMAGING REPORT ---
KUB CLINICAL HISTORY: Reevaluate ileus. Abdominal pain. COMPARISON STUDY: CT of the abdomen and pelvis November 07, 2016 and KUB November 09, 2016. FINDINGS: A left lower quadrant bowel anastomosis is noted. Moderate gaseous distention of small and large bowel has slightly improved. IMPRESSION: Moderate gaseous distention of small and large bowel, slightly improved since prior exam. The findings favor an ileus over bowel obstruction. Electronically signed by: Zeb Sales M.D. 11/10/2016 11:49 AM Dictated Date/Time: 11/10/2016 11:48 AM
--- NOTE | 2016-11-10 11:52 | Discharge Summary ---
Discharge Summary Date of Service Nov 10, 2016. (Trixie Muller PA-C) Discharge Summary Admission Date: Nov 07, 2016 at 12:03 Discharge Date: Nov 10, 2016 Discharge Disposition: Home Principal Diagnosis: pancreatitis, ileus Problems/Secondary Diagnoses: Diabetes type 2 [id number] Hypertension Chronic right shoulder pain Immunizations: Have You Had Influenza Vaccine: No History of Tetanus Vaccine?: Unknown History of Pneumococcal: No Pneumococcal Date: Apr 26, 2013 History of Hepatitis B Vaccine: Unknown Procedures: CT abdomen and pelvis 1. Findings consistent with pancreatitis. 2. Moderate peripancreatic infiltrative change as well as mild scattered ascites. 3. No evidence for drainable abscess collection or bowel obstructive change. 4. Several renal cysts including an upper pole right renal hyperdense cyst unchanged from prior. 5. Small infrarenal aneurysm unchanged in the prior study of the abdominal aorta. Consultations: GI General surgery (Trixie Muller PA-C) Problems/Secondary Diagnoses: pancreatic cyst - etiology to be determined Procedures: RUQ u/s negative for gallstones; normal CBD. (Aris Jaramillo MD) Medication Reconciliation New Medications: Docusate Sodium (Docusate Sodium) 100 Mg Cap 1 CAP PO BID for 7 Days, #14 CAP Diclofenac Sod (Voltaren) 100 Appln/100 Gm Gel 4 APPLN EXT Q6H for 15 Days, #60 DOSE Polyethylene (Miralax) 17 Gm Pow 17 GM PO BID for 3 Days, #6 DOSE Continued Medications: Allopurinol (Zyloprim) 300 Mg Tab 300 MG PO QAM, TAB Amlodipine Besylate (Norvasc) 10 Mg Tab 10 MG PO QAM, TAB Atorvastatin (Lipitor) 40 Mg Tab 40 MG PO QAM, TAB Glipizide (Glipizide Er) 5 Mg Tab 5 MG PO QDB Metformin Hcl (Metformin Hcl Er) 500 Mg Tab 500 MG PO BID Mometasone Furoate (Mometasone Furoate) 0.1 % Oin Naproxen (Naprosyn) 500 Mg Tab 500 MG PO Q12, TAB Omeprazole (Omeprazole) 20 Mg Tab 20 MG PO DAILY PRN for PRN Ramipril (Altace) 10 Mg Cap 10 MG PO BID Referrals At Discharge Follow up Referrals: Office Workforce Planner Referral - Within 6 Weeks with Kruger, Marten B., DO Discharge Exam Patient reports feeling good this morning. Abdominal pain much improved. Denies any nausea. Tolerating clear liquids. Passing gas. Is having bowel movements. They are reportedly small and firm. Denies fever or chills. No chest pain, shortness of breath, dizziness or heart palpitations. Review of Systems: Constitutional: No fever Respiratory: No shortness of breath Cardiovascular: No chest pain Abdomen: No nausea Physical Exam: General Appearance: no apparent distress Eyes: EOMI ENT: + pertinent finding (oromucosa moist) Neck: no JVD Respiratory/Chest: lungs clear Cardiovascular: regular rate, rhythm Abdomen / GI: normal bowel sounds, non tender, soft Extremities: + pertinent finding (trace pitting edema noted in the lower extremities without any erythema or tenderness appreciated bilaterally.) Neurologic/Psychiatric: no motor/sensory deficits, oriented x 3 Skin: warm/dry (Trixie Muller PA-C) Hospital Course 71-year-old male presents to the emergency department with diffuse abdominal pain and nausea. Initial abdominal plain films concerning for SBO. CT scan consistent with acute pancreatitis. Small calcified cystic lesion noted in the pancreas. Lipase elevated at 33,000. Idiopathic Pancreatitis/ileus-symptoms much improved -Hydrated with LR -GI/Gen surg consults -Dilaudid and zofran for sx relief -Kept NPO-->then advanced to clears -Tolerating full liquids on day of d/c -Appreciate GI recs-->f/u outpt for EUS for pancreatic lesion and eval of biliary tree -will give one dose Dulcolax supp x 1 to see if it will help bring on BM -ileus tx'ed with miralax and dulcolax with good results -given rx for miaralax for 3 days and docusate BID for 7 days upon d/c diabetes mellitus-BSGs stable. HgbA1C 6.1 -BSGs q 6 hr -insulin sliding scale -home regimen held while inpatient: Metformin 500 mg BID, glipizide ER 5 mg daily HTN-BP stable -Hydralazine 10 mg IV q 6 hr PRN -Continue Norvasc 10 mg daily -Continue ramipril 10 mg BID R shoulder pain -continue Voltaren gel-rx given since it seems to really be helping Gout -Continue allopurinol 300 mg daily DVT prophylaxis -Lovenox 40 mg subQ daily -TEDS, SCDs CODE STATUS -CPR ok, NO INTUBATION DISPO -d/c home-self care Total Time Spent: Greater than 30 minutes This includes examination of the patient, discharge planning, medication reconciliation, and communication with other providers. (Trixie Muller PA-C) Attending Attestation: Pt seen/examined, chart reviewed, and care plan d/w HARIKA Muller on day of discharge. I agree w/ the pathak components of her discharge summary. 71yo male with T2DM & HTN who presented with acute onset of abdominal pain and nausea. Lipase was >30,[address] abd/pelvis showed findings c/w acute pancreatitis. He had an associated ileus as well. He was treated in the customary fashion with copious hydration, bowel rest, pain medications, and pain medication. Lipase normalized and all GI symptoms improved/resolved with such. He was seen in consult by [facility] and general surgery. Etiology of the pancreatitis was unknown as he has no history of heavy etoh use , gallstones were not identified, and calcium and triglyceride levels were normal. CT scan did show a 2cm pancreatic cyst and [facility] has recommended outpatient endoscopic ultrasound in about 6 weeks to evaluate this as well as the biliary tree. Prior to discharge the patient was tolerating a diet and having flatus/bowel movements. Other medical problems (T2DM, etc) were stable. Discharge exam: gen - NAD, obese mouth - MMM neck - no JVD heart - RRR, s1, s2 lungs - CTA b/l abd - soft, NT, scant distension, BS+, no HSM ext - no edema Aris Jaramillo MD (Aris Jaramillo MD) Discharge Instructions Please refer to the electronic Patient Visit Report (Discharge Instructions) for additional information. (Trixie Muller PA-C) Follow-Up PCP 1 week GI in 6 weeks (Trixie Muller PA-C) Additional Copies To Bindu Kruger DO; [place] Albert, [email or web address].
[2016-11-10 14:25] VITALS: BP 137/85; PULSE 82; TEMP 36.7; O2SAT 96
[2016-11-10] MEDS ORDERED: POLYETHYLENE (MIRALAX) 17 GM PACK PO SCH (21:00)
[2017-01-13] MEDS ORDERED: DICL1GEL12 EXT (08:59)
[2017-01-19] MEDS ORDERED: KETO10TA PO (09:07)
[2017-01-19] MEDS ORDERED: OXYC-57 PO (09:07)
== END 2016-11-10 15:05 | disposition home or self-care (01) | DRG 439 ==
LOC: ENRESERVDT → ENRESERVTM → EDBD 09:15 → C.EDB 09:19 → C.MSN 12:03
PROVIDERS: ADMIT Internal Medicine; ATTEND Internal Medicine
DX: K85.00 Idiopathic acute pancreatitis without necrosis or infection (principal); K56.7 Ileus, unspecified; K86.2 Cyst of pancreas; I10 Essential (primary) hypertension; E11.9 Type 2 diabetes mellitus without complications; E78.2 Mixed hyperlipidemia; G89.29 Other chronic pain; M25.511 Pain in right shoulder; M71.9 Bursopathy, unspecified; S46.001S Unspecified injury of muscle(s) and tendon(s) of the rotator cuff of right shoulder, sequela; X58.XXXS Exposure to other specified factors, sequela; M10.9 Gout, unspecified; I25.10 Atherosclerotic heart disease of native coronary artery without angina pectoris; E66.9 Obesity, unspecified; Z68.33 Body mass index [BMI] 33.0-33.9, adult; Z79.1 Long term (current) use of non-steroidal anti-inflammatories (NSAID); Z79.84 Long term (current) use of oral hypoglycemic drugs; Z79.899 Other long term (current) drug therapy; Z90.49 Acquired absence of other specified parts of digestive tract; Z87.891 Personal history of nicotine dependence

== ENCOUNTER → 2016-12-29 | Outpatient (CLI) | payer BC ==
[~2016-12-29] MED LIST changes: +DICL1GEL12 EXT; +KETO10TA PO; +MOME0.1O3; -MOME1OIN2; +MRLP17 PO; +OXYC-57 PO; +VLTG EXT
--- NOTE | 2016-12-29 13:33 | DIAGNOSTIC IMAGING REPORT ---
MRI THE RIGHT SHOULDER NO CONTRAST CLINICAL HISTORY: Severe right shoulder pain. COMPARISON STUDY: L radiographic study dated 03/05/2010 FINDINGS: Imaging was performed the paracoronal, sagittal, and axial planes. The study is degraded due to motion artifact. There is a full-thickness supraspinatus tear without evidence of tendinous retraction. There is medial subluxation the biceps tendon. There is no evidence of occult fracture or bone bruise. No labral tears are visualized. IMPRESSION: 1. Technically limited study secondary to motion artifact 2. Full-thickness supraspinous tear without evidence of tendinous retraction 3. Medial subluxation of the biceps tendon Electronically signed by: Marc Eason M.D. 12/29/2016 1:31 PM Dictated Date/Time: 12/29/2016 1:28 PM
== END | disposition home or self-care (01) ==
LOC: C.MRIBC 12:36
PROVIDERS: ATTEND Orthopaedic Surgery
DX: S46.011A Strain of muscle(s) and tendon(s) of the rotator cuff of right shoulder, initial encounter (principal); S46.111A Strain of muscle, fascia and tendon of long head of biceps, right arm, initial encounter; X58.XXXA Exposure to other specified factors, initial encounter

== ENCOUNTER → 2017-01-10 | Outpatient (CLI) | payer BC ==
[2017-01-10 10:45] LABS: BASO % 0.3 %; BASO ABS # 0.03 K/uL (0-0.2); COMPLETE YES; EOS % 1.5 %; HEMATOCRIT 44.5 % (42-52); IG% 0.5 %; LYMPH % 25.4 %; LYMPH ABS # 2.56 K/uL (1.2-3.4); MEAN CELL VOLUME 93.3 fL (80-100); MEAN CORPUSCULAR HEMOGLOBIN 31.2 pg (25-34); MEAN CORPUSCULAR HGB CONC 33.5 g/dl (32-36); MEAN PLATELET VOLUME 10.4 fL (7.4-10.4); MONO % 6.3 %; PLATELET COUNT 145 K/uL (130-400); RED BLOOD COUNT 4.77 M/uL (4.7-6.1); WHITE BLOOD COUNT 10.09 K/uL (4.8-10.8)
[2017-01-10 11:35] LABS: BLOOD UREA NITROGEN 20 mg/dl (7-18); BUN/CREATININE RATIO 18.4 (10-20); CALCIUM 9.6 mg/dl (8.5-10.1); CARBON DIOXIDE 27 mmol/L (21-32); CHLORIDE 102 mmol/L (98-107); GLUCOSE 151 mg/dl (70-99); POTASSIUM 4.2 mmol/L (3.5-5.1); SODIUM 139 mmol/L (136-145)
== END | disposition home or self-care (01) ==
LOC: C.CPL 09:23
PROVIDERS: ATTEND Orthopaedic Surgery
DX: Z01.818 Encounter for other preprocedural examination (principal); M25.511 Pain in right shoulder

== ENCOUNTER → 2017-01-19 | Day surgery (SDC) | payer BC ==
[2017-01-13 08:59] VITALS: Ht 177.8 cm; Wt 100.0 kg
[~2017-01-19] VITALS: Ht 177.8 cm; Wt 100.0 kg
[~2017-01-19] MED LIST changes: +ATROPINE SULFATE 0.1 MG/ML 5ML SYR IV PRN; +BUPIVACAINE/EPINEPHRINE 0.25% 1:200,000 30 ML VIAL ONE; +CEFAZOLIN 2000 MG/60 ML D5W IV SCH; +DEXAMETHASONE SOD INJ 4 MG/ML VIAL ONE; +EpHEDrine SULFATE INJ 50 MG/ML AMP IV PRN; +EpINEphrine INJ 1MG/ML AMP 1 MG/ML AMP ONE; +FENTANYL CITRATE INJ 50 MCG/1 ML 2 ML VIAL IV PRN; +FENTANYL CITRATE INJ 50 MCG/1 ML 2 ML VIAL ONE; +LACTATED RINGER'S 1000ML 500 ML IV SCH; +LIDOCAINE HCL 2% 2 ML VIAL (20MG/ML) ONE; +MIDAZOLAM HCL 1 MG/ML 2ML VIAL ONE; -MOME0.1O3; +ONDANSETRON INJ 2 MG/ML 2 ML VIAL IV PRN; +ONDANSETRON INJ 2 MG/ML 2 ML VIAL ONE; +OXYCODONE/ACETAMINOPHEN 5-325 TAB PO PRN; +PROPOFOL IV EMULSION 10 MG/ML 20 ML VIAL IV ONE; +ROPIVACAINE 0.5% 5 MG/ML 30 ML VIAL ONE; +SODIUM CHLORIDE 0.9% 1000ML 1,000 ML IV SCH; -VLTG EXT
--- NOTE | 2017-01-19 06:55 | History & Physical Bridge - [place] ---
H&P Re-Evaluation Bridge Note: I have examined the patient, reviewed the History & Physical and in the interval since the performance of the History & Physical I have noted the following changes of clinical significance: No changes noted
--- NOTE | 2017-01-19 08:53 | [facility] Post Operative Brief Note ---
Immediate Operative Summary Operative Date January 19, 2017. Pre-Operative Diagnosis Full Thickness Rotator Cuff Repair, Right Shoulder Post-Operative Diagnosis Same Procedure(s) Performed Right Shoulder Large Rotator Cuff Arthroscopic , Acromioplasty, Biceps Tenotomy Surgeon Dr. Trupti Haro Rubber Vulcanizing Machine Operator Surgeon(s) Clinton Fabian PA-C Estimated Blood Loss 5 cc Findings as above Specimens None Complication(s) None Disposition Recovery Room / PACU
--- NOTE | 2017-01-19 09:08 | Discharge Instructions-SurgCtr ---
Discharge Instructions Date of Service January 19, 2017. Visit Reason for Visit: Right Shoulder Full Thickness Rotator Cuff Tear Discharge Discharge Diagnosis / Problem: SAME ABOVE Discharge Goals Goal(s): Decrease discomfort, Improve function Medications Stopped Medications Name(s): metformin glypizide Restart Stopped Medication(s): MAY RESTART 01/19/2017 Activity Recommendations Activity Limitations: as noted below Lifting Limitations: until after follow-up appointment Exercise/Sports Limitations: until after follow-up appointment Shower/Bathe: tomorrow Anesthesia . Post Anesthesia Instructions: If you have had General Anesthesia or IV Sedation: * Do not drive today. * Resume driving when surgeon permits. * Do not make important decisions or sign legal documents today. * Call surgeon for: 1. Temperature elevations greater than 101 degrees F. 2. Uncontrollable pain. 3. Excessive bleeding. 4. Persistent nausea and vomiting. 5. Medication intolerance (nausea, vomiting or rash). * For nausea and vomiting use only clear liquids such as: tea, soda, bouillon until nausea subsides, then gradually increase diet as tolerated. * If you have any concerns or questions, call your surgeon's office. If physician is unavailable and it is an emergency, call 911 or go to the nearest emergency room. . Instructions / Follow-Up Instructions / Follow-Up MEDICATIONS: * Resume previous medications unless instructed otherwise by your surgeon. * Always take pain medication on a full stomach or with food to avoid upset stomach. * Do not drink alcohol or drive while taking narcotics. * Ibuprofen or Tylenol may be taken if narcotic not needed. SPECIAL CARE INSTRUCTIONS: __ None _X_ Keep extremity elevated and iced x 48 hours; apply ice 20-30 minutes 8-10 times/day. May remove at night. __ Sling __24 hrs/day __ Remove at night _X_ Shoulder Immobilizer (MAY REMOVE AFTER 48 HOURS ONLY TO SHOWER AND FOR THERAPY) _X_ 24 hrs/day __ Remove at night _X_ Dressing __ Maintain until seen in office, may shower with plastic over site _X_ Remove dressings in 24-48 hours and then may shower _X_ Cover incisions with band-aids after showering __ Do not remove steri-strips Call physician if chills or temperature rises above 102 degrees or pain unrelieved by prescribed pain medications at . . Diet Recommendations Home Diet: no limitations Fluid Restriction: None Procedures Procedures Performed: Right Shoulder Large Rotator Cuff Arthroscopic , Acromioplasty, Biceps Tenotomy Pending Studies Studies pending at discharge: no Work Instructions Return To Work: after follow-up Lifting Limitations: NO LIFTING WITH RIGHT ARM Medical Emergencies . Who to Call and When: Medical Emergencies: If at any time you feel your situation is an emergency, please call 911 immediately. . Non-Emergent Contact Non-Emergency issues call your: Primary Care Provider Call Non-Emergent contact if: you have a fever, temperature is above 101.5 . . "Provider Documentation" section prepared by Darin Fabian. .
--- NOTE | 2017-01-19 10:08 | Anesthesia Progress Nt - [facility] ---
Anesthesia Post Op Note Date & Time January 19, 2017 at 10:08 Vital Signs Pain Intensity: 0 Vital Signs Past 12 Hours Date Time Temp Pulse Resp B/P Pulse Ox O2 Delivery O2 Flow Rate FiO2 01/19/17 09:57 66 20 92 01/19/17 09:57 71 20 01/19/17 09:56 159/102 01/19/17 09:54 67 21 01/19/17 09:54 67 21 92 01/19/17 09:50 151/88 01/19/17 09:49 63 21 94 01/19/17 09:49 62 21 01/19/17 09:48 162/95 01/19/17 09:46 65 19 01/19/17 09:46 67 19 93 01/19/17 09:45 169/101 01/19/17 09:45 36.5 66 20 162/95 94 Room Air 01/19/17 09:41 62 17 01/19/17 09:41 63 17 93 01/19/17 09:40 165/98 01/19/17 09:38 152/93 01/19/17 09:37 69 16 01/19/17 09:37 69 16 94 01/19/17 09:35 152/106 01/19/17 09:32 66 23 93 01/19/17 09:32 67 23 01/19/17 09:31 61 20 94 01/19/17 09:31 62 20 01/19/17 09:30 152/95 01/19/17 09:29 154/98 01/19/17 09:26 62 16 01/19/17 09:26 62 16 97 01/19/17 09:25 167/101 01/19/17 09:23 63 14 97 01/19/17 09:23 63 14 01/19/17 09:22 61 13 97 01/19/17 09:22 62 13 01/19/17 09:20 148/96 01/19/17 09:17 69 12 96 01/19/17 09:17 68 12 01/19/17 09:16 162/88 01/19/17 09:15 71 20 96 01/19/17 09:15 69 20 01/19/17 09:11 177/105 01/19/17 09:10 70 17 96 01/19/17 09:10 67 17 01/19/17 09:06 36.4 69 20 176/99 95 Mask 8 01/19/17 09:06 176/99 01/19/17 09:05 68 01/19/17 09:05 68 92 01/19/17 07:05 0 01/19/17 07:00 0 01/19/17 06:59 67 01/19/17 06:59 67 11 100 01/19/17 06:55 181/105 01/19/17 06:54 66 01/19/17 06:54 65 5 100 01/19/17 06:51 182/106 01/19/17 06:49 66 01/19/17 06:49 66 0 100 01/19/17 06:25 36.8 70 18 166/107 96 Room Air Notes Mental Status: alert / awake / arousable, participated in evaluation Pt Amnestic to Procedure: Yes Nausea / Vomiting: adequately controlled Pain: adequately controlled Airway Patency, RR, SpO2: stable & adequate BP & HR: stable & adequate Hydration State: stable & adequate Anesthetic Complications: no major complications apparent
[2017-01-19 10:47] VITALS: BP 143/94; PULSE 84; TEMP 36.6; O2SAT 94
--- NOTE | 2017-01-19 12:18 | OPERATIVE REPORT ---
DATE OF OPERATION: 01/19/2017 PREOPERATIVE DIAGNOSIS: Large anterior superior right rotator cuff tear with medially subluxated biceps tendon. POSTOPERATIVE DIAGNOSIS: Same. PROCEDURE: Right shoulder diagnostic arthroscopy with extensive debridement, acromioplasty, large anterior superior rotator cuff repair and biceps tenotomy. SURGEON: Dr. Leno Haro. BARTACKER: Fernando Fabian PA-C, whose assistance was necessary for positioning the arm and helping with instrumentation. ANESTHESIA: General with a right interscalene nerve block. COMPLICATIONS: None. CONDITION: Stable to PACU. INDICATIONS: Pablo is a pleasant 71-year-old male who injured his right shoulder while lifting plywood back in August. He noticed pain and weakness in his shoulder. MRI and clinical examination were diagnostic for a large anterior superior rotator cuff tear with medially subluxated biceps tendon. After failing conservative treatment, he elected to undergo arthroscopy. On 01/19/2017 he arrived at [facility] for the above procedure. He was seen in the preoperative holding area and the operative extremity was identified and signed. He was given a preoperative antibiotic, taken back to the operating room, laid on the table in supine position and put under general anesthesia. He was then put into the beachchair position. The right shoulder was prepped and draped in sterile fashion. Time-out was done and the patient and operative extremity was properly identified. A scope was introduced in the posterior portal. Diagnostic arthroscopy showed no cartilage damage to the humeral head or the glenoid. The biceps tendon was subluxated medially. There was tearing of the upper half of the subscapularis and the entire supraspinatus. The infraspinatus and teres minor were intact. An anterior portal was made. A shaver was used to do a debridement of some of the intraarticular structures and the biceps tendon was arthroscopically tenotomized. The scope was then put into the subacromial space. A lateral portal was made. A shaver was used to do a complete subacromial and subdeltoid bursectomy. An ablator was used to tease the coracoacromial ligament off the undersurface of the acromion and a 5-0 randa was used to complete an acromioplasty of a Bigliani type 3 acromion. A shaver was used to remove any excess debris and attention was turned to the rotator cuff. An additional anterolateral portal was made and Kary cannulas were placed in each of the lateral portals. The greater tuberosity and the upper portion of the lesser tuberosity were prepared with a ring curette and a microfracture. The rotator cuff was then fixed with Arthrex suspension bridge configuration using six 4.75 mm BioComposite SwiveLock suture anchors. This gave a nice knotless suspension bridge repair. Multiple pictures were taken. The scope was placed back into the glenohumeral joint and the articular margin of the subscapularis and supraspinatus had been restored. Multiple pictures were taken. Arthroscopic instruments removed from the shoulder. Portal sites were closed with 3-0 nylon. He was then placed in a soft dressing and abduction arm sling. He was then extubated, transferred to a litter and taken to the postanesthesia care unit in stable condition. He tolerated the procedure well. I attest to the content of the Intraoperative Record and any orders documented therein. Any exceptio ns are noted below.
== END | disposition home or self-care (01) ==
LOC: X.SURG 06:07
PROVIDERS: ATTEND Orthopaedic Surgery
DX: S46.011A Strain of muscle(s) and tendon(s) of the rotator cuff of right shoulder, initial encounter (principal); S46.211A Strain of muscle, fascia and tendon of other parts of biceps, right arm, initial encounter; X50.0XXA Overexertion from strenuous movement or load, initial encounter; E11.9 Type 2 diabetes mellitus without complications

== ENCOUNTER → 2017-03-06 | Outpatient (CLI) | payer BC ==
[~2017-03-06] MED LIST changes: -ATROPINE SULFATE 0.1 MG/ML 5ML SYR IV PRN; -BUPIVACAINE/EPINEPHRINE 0.25% 1:200,000 30 ML VIAL ONE; -CEFAZOLIN 2000 MG/60 ML D5W IV SCH; -DEXAMETHASONE SOD INJ 4 MG/ML VIAL ONE; -EpHEDrine SULFATE INJ 50 MG/ML AMP IV PRN; -EpINEphrine INJ 1MG/ML AMP 1 MG/ML AMP ONE; -FENTANYL CITRATE INJ 50 MCG/1 ML 2 ML VIAL IV PRN; -FENTANYL CITRATE INJ 50 MCG/1 ML 2 ML VIAL ONE; -LACTATED RINGER'S 1000ML 500 ML IV SCH; -LIDOCAINE HCL 2% 2 ML VIAL (20MG/ML) ONE; -MIDAZOLAM HCL 1 MG/ML 2ML VIAL ONE; -ONDANSETRON INJ 2 MG/ML 2 ML VIAL IV PRN; -ONDANSETRON INJ 2 MG/ML 2 ML VIAL ONE; -OXYCODONE/ACETAMINOPHEN 5-325 TAB PO PRN; -PROPOFOL IV EMULSION 10 MG/ML 20 ML VIAL IV ONE; -ROPIVACAINE 0.5% 5 MG/ML 30 ML VIAL ONE; -SODIUM CHLORIDE 0.9% 1000ML 1,000 ML IV SCH
[2017-03-06 11:38] LABS: ALT/SGPT 16 U/L (12-78); BLOOD UREA NITROGEN 16 mg/dl (7-18); BUN/CREATININE RATIO 14.4 (10-20); CALCIUM 9.4 mg/dl (8.5-10.1); CARBON DIOXIDE 28 mmol/L (21-32); CHLORIDE 103 mmol/L (98-107); ESTIMATED AVERAGE GLUCOSE 157 mg/dl; GLUCOSE 149 mg/dl (70-99); HA1C FLAG Normal (Normal); POTASSIUM 4.4 mmol/L (3.5-5.1); SODIUM 138 mmol/L (136-145)
[2017-03-06 11:43] LABS: ALKALINE PHOSPHATASE 94 U/L (45-117); AST/SGOT 14 U/L (15-37)
[2017-03-06 11:56] LABS: RATIO 144.5 mcg/mg (0-30.0)
== END | disposition home or self-care (01) ==
LOC: C.LABBC 07:56
PROVIDERS: ATTEND Family Medicine
DX: E11.8 Type 2 diabetes mellitus with unspecified complications (principal); I10 Essential (primary) hypertension; N40.0 Benign prostatic hyperplasia without lower urinary tract symptoms; R80.9 Proteinuria, unspecified

== ENCOUNTER → 2018-01-09 | Outpatient (CLI) | payer BC ==
[~2018-01-09] MED LIST changes: -KETO10TA PO; -OXYC-57 PO
[2018-01-09 13:54] LABS: ALBUMIN 3.9 gm/dl (3.4-5.0); ALKALINE PHOSPHATASE 91 U/L (45-117); ALT/SGPT 20 U/L (12-78); AST/SGOT 20 U/L (15-37); BLOOD UREA NITROGEN 25 mg/dl (7-18); CALCIUM 9.1 mg/dl (8.5-10.1); CARBON DIOXIDE 26 mmol/L (21-32); CHOLESTEROL 117 mg/dl (0-200); CREATININE 1.24 mg/dl (0.60-1.40); GLUCOSE 151 mg/dl (70-99); LDL CHOLESTEROL CALCULATED 52 mg/dl; POTASSIUM 4.4 mmol/L (3.5-5.1); SODIUM 135 mmol/L (136-145); TOTAL PROTEIN 7.8 gm/dl (6.4-8.2)
[2018-01-09 13:58] LABS: CREATININE RANDOM URINE 86.5 mg/dl
[2018-01-09 13:59] LABS: HEMOGLOBIN A1C 8.1 % (4.5-5.6)
== END | disposition home or self-care (01) ==
LOC: C.LABBC 10:14
PROVIDERS: ATTEND Nurse Practitioner Adult Health
DX: Z12.5 Encounter for screening for malignant neoplasm of prostate (principal); E11.8 Type 2 diabetes mellitus with unspecified complications; R39.9 Unspecified symptoms and signs involving the genitourinary system; I10 Essential (primary) hypertension; E78.5 Hyperlipidemia, unspecified

== ENCOUNTER 2020-12-29 15:33 | Inpatient (IN) ==
[2020-12-29] MEDS ORDERED: AMPICILLIN/SULBACTAM SOD 3,000 MG in 0.9 % SODIUM CHLORIDE 100 ML IV STA (15:53)
[2020-12-29] MEDS ORDERED: SODIUM CHLORIDE 0.9% 1000ML 1,000 ML IV ONE (15:55)
--- NOTE | 2020-12-29 15:59 | Emergency Department Note ---
ED Visit Note Patient was seen by our PA/SPIN INSTRUCTOR. I was involved in the patient's care and did evaluate the patient myself. I was involved in the care throughout the ER stay. The patient presents from the maxillofacial surgeons office. He has had issues with dental pain and a dental abscess. He has facial swelling. He was sent to this ED for a work-up including a CT scan. He is to be hospitalized and will likely have abscess drainage performed tomorrow. The patient is currently stable. He is not toxic or febrile. Understands the need for hospitalization. .
--- NOTE | 2020-12-29 16:05 | Emergency Department Note ---
History of Present Illness General Chief complaint: Dental/Oral Stated complaint: abscess Time Seen by Provider: 12/29/20 15:40 History of Present Illness Maximum Pain Intensity: 10 75-year-old male who presents to the emergency department with his , and at the request of Dr. Lara, maxillofacial surgeon, for a dental infection. The patient reports that he has been dealing with infection and swelling for the past 6 months. He started to notice progressively worsening pain and swelling 2 weeks ago. The patient has had chills at home, but the patient or have not checked his temperature. He was seen today in the office by Dr. Lara who referred him to the emergency department for admission and IV antibiotics. He is also requesting CT imaging as well for surgical planning. The patient rates his discomfort an 8 out of 10. The reports that he has been taking helen xicillin with decent control of the infection. Home Medications Medication Instructions Recorded Confirmed Type mometasone 0.1 % topical cream 1 appln TOP BID PRN gm 07/31/19 12/29/20 History naproxen 500 mg tablet 500 mg PO BID PRN 07/31/19 12/29/20 History polyethylene glycol 3350 17 gram 17 gm PO DAILY PRN 07/31/19 12/29/20 History oral powder packet ibuprofen 200 mg tablet 400 mg PO QAM PRN tab 02/14/20 12/29/20 History allopurinol 300 mg tablet 300 mg PO DAILY #90 tab 08/14/20 12/29/20 Rx amlodipine 10 mg tablet 10 mg PO DAILY #90 tab 08/14/20 12/29/20 Rx blood sugar diagnostic #100 ea 08/14/20 12/29/20 Rx hydrochlorothiazide 25 mg tablet 25 mg PO DAILY #90 tab 08/14/20 12/29/20 Rx insulin glargine 100 unit/mL (3 40 unit SQ QPM 90 Days #36 ml 08/14/20 12/29/20 Rx mL) subcutaneous pen lancets #100 ea 08/14/20 12/29/20 Rx metformin 500 mg tablet,extended 1,000 mg PO BID #360 tab 08/14/20 12/29/20 Rx release 24 hr omeprazole magnesium 20 mg 20 mg PO DAILY #90 tab 08/14/20 12/29/20 Rx tablet,delayed release pen needle, diabetic 31 gauge x #100 ea 08/14/20 12/29/20 Rx 3/16" ramipril 10 mg capsule 10 mg PO BID #180 cap 08/14/20 12/29/20 Rx rosuvastatin 20 mg tablet 20 mg PO DAILY #90 tab 08/14/20 12/29/20 Rx dapagliflozin 10 mg tablet 10 mg PO DAILY #90 tab 11/26/20 12/29/20 Rx furosemide 20 mg tablet 20 mg PO DAILY #5 tab 11/26/20 12/29/20 Rx potassium chloride 20 mEq 20 meq PO DAILY #5 tab 11/26/20 12/29/20 Rx tablet,extended release Allergies Allergy/AdvReac Type Severity Reaction Status Date / Time atenolol Allergy Intermediate pass out, Verified 12/29/20 15:55 chest pain atorvastatin [From Lipitor] Allergy Mild myalgia Verified 12/29/20 15:55 cilostazol [From Pletal] Allergy Unknown Unknown Verified 12/29/20 15:55 pollen extracts Allergy Unknown ENVIRONMENTAL Verified 12/29/20 15:55 ALLERGIES Past Med/Surg History Medical History AAA (abdominal aortic aneurysm) small infrarenal aneurysm noted 04/2016 Ct scan Back pain Barretts esophagus Diabetes mellitus type II, uncontrolled (04/07/13) Diaphragmatic hernia without obstruction or gangrene Diverticulosis of colon Gout, unspecified Hepatic steatosis (~02/2020) Hypertension Mixed hyperlipidemia Osteoarthritis of knees, bilateral Senile cataract, unspecified Small bowel obstruction due to adhesions Thrombocytopenia Tobacco use disorder Umbilical hernia without obstruction or gangrene Surgical History History of partial colectomy History of repair of rotator cuff Family History Father Cancer Heart disease Myocardial infarction Mother Diabetes Dyslipidemia Hypertension Kidney disease Renal failure Sister Dyslipidemia Hypertension Diabetes Denies family history of Ovarian cancer Prostate cancer Breast cancer Lung cancer Colorectal cancer Social History Smoking Status: Former smoker Tobacco Type: Cigars Age Started Using Tobacco: 38; Second Hand Exposure: No; Do You Dip or Chew Tobacco: Yes; Tobacco Cessation Education Requested by Patient: No Hx Alcohol Use: Yes Alcohol type: beer Alcohol Intake Frequency: 2-4 x/Month Hx Substance Use: No Preferred Language: Irish Communication Ability: Effective Visual Impairment: Limited Hearing Ability: Normal Hide Stretcher Hand Required: No Beliefs That Will Affect Care: None marital status: Current Living Situation: Spouse current occupational status: retired current occupation: [employer] How many Children do You have: 1 Other Information That Helps Us Care for You: No Feels Safe at Home: Yes Safety Concerns: Feels Safe At This Time Childhood Exposure to Second-Hand Smoke: Yes caffeine: No Dental Care, Regularly: No Physical Activity Frequency: Does not Exercise Seatbelt Use: always Sunscreen Use: No Assistive Devices: Cane Review of Systems 10 system review was performed and was negative except for pertinent positives and negatives as indicated in history of present illness Physical Exam Vital Signs Vital Signs - 24 hr 12/29/20 15:36 12/29/20 15:59 12/29/20 17:44 Temperature 36.3 C L 36.7 C Temperature Source Temporal Artery Scan Oral Pulse Rate 86 Pulse Rate [Left Apical] 76 71 Pulse Rhythm [Left Apical] Regular Regular Pulse Strength [Left Apical] Normal Normal Respiratory Rate 18 20 17 Respiratory Effort / Characteristics Non-Labored Non-Labored Spontaneous Non-Labored Spontaneous Respiratory Depth Normal Normal Normal Respiratory Pattern Regular Blood Pressure 147/89 H Blood Pressure [Left Arm] 134/97 160/105 H Blood Pressure Mean 108 Blood Pressure Mean [Left Arm] 109 123 Blood Pressure Position Sitting Blood Pressure Position [Left Arm] Lying Lying Pulse Oximetry 96 96 96 Oxygen Delivery Method Room Air Room Air Room Air Sepsis Recent Fever Within 48 Hours No Sepsis New/Unexplained Change in Mental Status No Sepsis Action Taken by Nursing No Action Required 12/29/20 18:18 Temperature Temperature Source Pulse Rate Pulse Rate [Left Apical] 72 Pulse Rhythm [Left Apical] Regular Pulse Strength [Left Apical] Normal Respiratory Rate 16 Respiratory Effort / Characteristics Non-Labored Spontaneous Respiratory Depth Normal Respiratory Pattern Regular Blood Pressure Blood Pressure [Left Arm] 155/88 H Blood Pressure Mean Blood Pressure Mean [Left Arm] 110 Blood Pressure Position Blood Pressure Position [Left Arm] Lying Pulse Oximetry 95 Oxygen Delivery Method Room Air Sepsis Recent Fever Within 48 Hours Sepsis New/Unexplained Change in Mental Status Sepsis Action Taken by Nursing CONSTITUTIONAL: Healthy and well nourished. Patient appears in mild discomfort. HEENT: Examination shows mild edema of the right mandibular region. No overriding facial erythema or fluctuance noted. Examination of the oropharynx shows notable gingival edema without pointing or fluctuance. Patient has poor dentition. No evidence for Solomon's angina or retropharyngeal abscess. NECK: Full active range of motion without discomfort. No tracheal deviation appreciated. LYMPHATICS: No submandibular, submental or cervical chain adenopathy. RESPIRATORY: Clear to auscultation bilaterally with no wheezing, crackles, rhonchi or stridor. CARDIOVASCULAR: Regular rate and rhythm with no murmurs, rubs or gallops. GASTROINTESTINAL: Bowel sounds present in all quadrants. Soft and nontender to palpation. MUSCULOSKELETAL: Full range of motion of all joints without discomfort. INTEGUMENTARY: No rash or other significant dermatologic conditions noted. HEMATOLOGIC: No ecchymosis or petechiae. PSYCHIATRIC: Positive affect. NEUROLOGIC: Facial sensations are intact. Course Course Patient history and physical exam were performed. Nurses notes were reviewed. Vital signs were reviewed and were normal. IV access was established, and labs were drawn. The patient was hydrated with a liter normal saline, and administered IV morphine and Zofran for pain. For preoperative planning, an ECG was also performed, showing a normal sinus rhythm with low voltage QRS and possible inferior infarct. Comparison was made with an ECG from 2017. The patient was also placed on monitoring manager while in the emergency department. A portable chest x-ray does not show any consolidations or evidence of heart failure. Review of labs shows a thrombocytopenia with platelet count of 63,000. The patient has chronic thrombocytopenia. CMP shows a mild hyponatremia and glucosuria, otherwise remaining labs are otherwise grossly normal. COVID-19 test is negative, along with influenza and RSV. CT of the facial bones with and without IV contrast was performed at the request of Dr. Lara, and showed a periapical abscess and adjacent gingival abscess of ADA 28. The patient was administered a second dose of IV morphine without any significant relief of pain, and was therefore ordered IV Dilaudid. Findings were discussed with Dr. Lara who indicated that he would prefer to keep the patient n.p.o. overnight, and he would anticipate undergoing a dental procedure tomorrow morning. He has asked that the [facility] do the admission. The case was further discussed with Dr. Sanchez, ED attending physician, as well as the [facility]. Please see their dictations for further treatment, surgical intervention provided, and final disposition. Administered Medications Ampicillin Sodium/Sulbactam Sodium 3,000 mg/ Sodium Chloride 108 mls @ 200 mls/hr IV Q6H MORAIMA; Protocol Stop: 01/08/21 21:59 Last Infusion: 12/29/20 23:37 Dose: 0 mls/hr Documented by: [id number] Admin: 12/29/20 23:09 Dose: 200 mls/hr Documented by: [id number] Insulin Glargine (Insulin Glargine Solostar 100 Units/Ml 3 Ml Pen) 40 units SQ QPM MORAIMA Stop: 01/28/21 20:59 Last Admin: 12/29/20 22:29 Dose: 40 units Documented by: [id number] Cosigned by: [id number] Discontinued Medications Hydromorphone HCl (Hydromorphone Inj 0.5 Mg/0.5 Ml Syr) 0.5 mg IV NOW STA Stop: 12/29/20 18:12 Last Admin: 12/29/20 18:17 Dose: 0.5 mg Documented by: [id number] Sodium Chloride (Nss 1000ml) 1,000 mls @ 999 mls/hr IV .Q1H1M ONE Stop: 12/29/20 16:55 Last Infusion: 12/29/20 17:20 Dose: 0 mls/hr Documented by: [id number] Admin: 12/29/20 16:19 Dose: 999 mls/hr Documented by: [id number] Ampicillin Sodium/Sulbactam Sodium 3,000 mg/ Sodium Chloride 108 mls @ 200 mls/hr IV NOW STA; Protocol Stop: 12/29/20 16:25 Last Infusion: 12/29/20 17:11 Dose: 0 mls/hr Documented by: [id number] Admin: 12/29/20 16:35 Dose: 200 mls/hr Documented by: [id number] Ioversol (Optiray 320 100ml) 87 ml IV ONCE ONE Stop: 12/29/20 17:19 Last Admin: 12/29/20 17:20 Dose: 87 ml Documented by: [id number] Morphine Sulfate (Morphine Sulfate 2 Mg/Ml Carp) 2 mg IV NOW STA Stop: 12/29/20 16:22 Last Admin: 12/29/20 18:55 Dose: Not Given Documented by: [id number] Morphine Sulfate (Morphine Sulfate 2 Mg/Ml Carp) 2 mg IV Q30M PRN PRN Reason: Pain Stop: 12/29/20 23:36 Last Admin: 12/29/20 17:45 Dose: 2 mg Documented by: [id number] Admin: 12/29/20 16:35 Dose: 2 mg Documented by: [id number] Ondansetron HCl (Ondansetron Inj 2 Mg/Ml 2 Ml Vial) 4 mg IV NOW STA Stop: 12/29/20 16:22 Last Admin: 12/29/20 18:54 Dose: Not Given Documented by: [id number] Medical Decision Making Medical Records Attestation: I reviewed the patient's medical records. Home Medications Current Medication List: was personally reviewed by me Laboratory Data Attestation: I reviewed the patient's lab results. Result diagrams: 12/29/20 16:08 12/29/20 16:08 Lab Results 12/29/20 12/29/20 12/29/20 Range/Units 16:00 16:00 16:08 WBC 10.49 (4.8-10.8) K/uL RBC 4.67 L (4.7-6.1) M/uL Hgb 14.4 (14.0-18.0) g/dL Hct 42.5 (42-52) % MCV 91.0 (80-100) fL MCH 30.8 (25-34) pg MCHC 33.9 (32-36) g/dL RDW Std Deviation 47.9 H (36.4-46.3) fL RDW Coeff of Chrissy 14.5 (11.5-14.5) % Plt Count 63 L (130-400) K/uL MPV 11.8 H (7.4-10.4) fL Immature Gran % (Auto) 0.6 % Neut % (Auto) 67.6 % Lymph % (Auto) 22.0 % [place] % (Auto) 7.5 % Eos % (Auto) 2.0 % Baso % (Auto) 0.3 % Neut # (Auto) 7.09 H (1.4-6.5) K/uL Lymph # (Auto) 2.31 (1.2-3.4) K/uL [place] # (Auto) 0.79 H (0.11-0.59) K/uL Eos # (Auto) 0.21 (0-0.5) K/uL Baso # (Auto) 0.03 (0-0.2) K/uL Immature Gran # (Auto) 0.06 H (0.00-0.02) K/uL PT (9.0-12.0) Seconds INR (0.9-1.1) APTT (21.0-31.0) Seconds PTT Ratio Sodium (136-145) mmol/L Potassium (3.5-5.1) mmol/L Chloride (98-107) mmol/L Carbon Dioxide (21-32) mmol/L Anion Gap (3-11) BUN (7-18) mg/dl Creatinine (0.6-1.4) mg/dl Est Cr Clr Drug Dosing ml/min Est GFR ( Amer) Est GFR (Non-Af Amer) BUN/Creatinine Ratio (10-20) Glucose (70-99) mg/dl Calcium (8.5-10.1) mg/dl Total Bilirubin (0.2-1) mg/dl AST (15-37) U/L ALT (12-78) U/L Alkaline Phosphatase (45-117) U/L Troponin I (0-0.045) ng/ml Total Protein (6.4-8.2) gm/dl Albumin (3.4-5.0) gm/dl Globulin (2.5-4.0) gm/dl Albumin/Globulin Ratio (0.9-2) COVID-19 Eval Order CovFluRsv at [facility] SARS-CoV-2 (PCR) NEGATIVE (Negative) Influenza Type A (PCR) Negative (Neg) Influenza Type B (PCR) Negative (Neg) RSV (RT-PCR) Negative (Neg) 12/29/20 12/29/20 Range/Units 16:08 16:08 WBC (4.8-10.8) K/uL RBC (4.7-6.1) M/uL Hgb (14.0-18.0) g/dL Hct (42-52) % MCV (80-100) fL MCH (25-34) pg MCHC (32-36) g/dL RDW Std Deviation (36.4-46.3) fL RDW Coeff of Chrissy (11.5-14.5) % Plt Count (130-400) K/uL MPV (7.4-10.4) fL Immature Gran % (Auto) % Neut % (Auto) % Lymph % (Auto) % [place] % (Auto) % Eos % (Auto) % Baso % (Auto) % Neut # (Auto) (1.4-6.5) K/uL Lymph # (Auto) (1.2-3.4) K/uL [place] # (Auto) (0.11-0.59) K/uL Eos # (Auto) (0-0.5) K/uL Baso # (Auto) (0-0.2) K/uL Immature Gran # (Auto) (0.00-0.02) K/uL PT 10.6 (9.0-12.0) Seconds INR 1.0 (0.9-1.1) APTT 26.4 (21.0-31.0) Seconds PTT Ratio 1.0 Sodium 135 L (136-145) mmol/L Potassium 3.8 (3.5-5.1) mmol/L Chloride 102 (98-107) mmol/L Carbon Dioxide 28 (21-32) mmol/L Anion Gap 5.0 (3-11) BUN 24 H (7-18) mg/dl Creatinine 1.28 (0.6-1.4) mg/dl Est Cr Clr Drug Dosing 59.7 ml/min Est GFR ( Amer) 62.2 Est GFR (Non-Af Amer) 53.6 BUN/Creatinine Ratio 18.8 (10-20) Glucose 166 H (70-99) mg/dl Calcium 9.9 (8.5-10.1) mg/dl Total Bilirubin 0.5 (0.2-1) mg/dl AST 10 L (15-37) U/L ALT 8 L (12-78) U/L Alkaline Phosphatase 98 (45-117) U/L Troponin I < 0.015 (0-0.045) ng/ml Total Protein 7.4 (6.4-8.2) gm/dl Albumin 3.4 (3.4-5.0) gm/dl Globulin 4.0 (2.5-4.0) gm/dl Albumin/Globulin Ratio 0.8 L (0.9-2) COVID-19 Eval Order SARS-CoV-2 (PCR) (Negative) Influenza Type A (PCR) (Neg) Influenza Type B (PCR) (Neg) RSV (RT-PCR) (Neg) Imaging Data Attestation: I personally reviewed and interpreted this imaging study as follows: My Impression: My interpretation of reportable chest x-ray does not show any consolidations, pneumothorax or evidence of failure. My interpretation of an enhanced CT of the facial bones shows a periapical abscess of ADA 28 with adjacent soft tissue abscess. Radiologist reports were also reviewed. Radiologist's Impression: Face CT 12/29/20 15:53 CT facial bones wo/w con HISTORY: Right mandibular swelling. R mandibular abscess with and w/o per DR Lara TECHNIQUE: Multiaxial CT images of the facial bones were performed both before and after the intravenous administration of 87 cc of Optiray 320. COMPARISON STUDY: None. FINDINGS: There is a 1 cm periapical lucency at ADA 28 demonstrating cortical breakthrough along the buccal surface and an adjacent 1.9 cm soft tissue abscess. This is best seen on axial image 195. There is an additional 4 mm periapical lucency at ADA 22 without associated soft tissue abscess. Multiple dental caries are noted. The visualized brain parenchyma and orbits are unremarkable. The pterygopalatine fossa are well-maintained. The parotid and submandibular glands are symmetric. No upper cervical lymphadenopathy identified. The epiglottis and visualized prevertebral soft tissues are normal in thickness. There is a 1.3 cm anterior nasal septal defect. Right mandibular soft tissue swelling is noted. This is likely reactive. No abscess within the sublingual or submental spaces. Moderate calcified plaque within the bilateral carotid siphons and distal vertebral arteries without significant stenosis. There is mild right and moderate left carotid bifurcation calcified plaque. This results in approximately 30% focal stenosis at the proximal left internal carotid artery. The right internal carotid artery is patent. IMPRESSION: 1. A 1 cm periapical lucency at ADA 28 with associated cortical breakthrough at the buccal surface and an adjacent 1.9 cm soft tissue abscess. 2. Additional periodontal disease as described above. ACT 112: Negative or not required by law. Electronically signed by: Armen Manriquez M.D. 12/29/2020 5:36 PM Chest X-Ray 12/29/20 15:58 XR chest 1V portable CLINICAL HISTORY: Infection COMPARISON STUDY: Chest radiograph November 07, 2016. FINDINGS: Lung volumes are normal. Linear bilateral opacities favor atelectasis. There is no consolidation or evidence for pulmonary edema. No pneumothorax or pleural effusion is noted. There is no significant change in appearance of the chest. There is borderline cardiomegaly. IMPRESSION: 1. No acute findings. 2. Linear bibasilar opacities which favor atelectasis. ACT 112: Negative or not required by law. Electronically signed by: Zeb Sales M.D. 12/29/2020 4:37 PM ECG Data Attestation: I personally reviewed and interpreted this ECG as follows: Indication: + other (Preoperative evaluation) Rate (beats per minute): 76 Rhythm: + normal sinus ECG ST segments: + Normal ST segments ECG Findings: + Other (Inferior infarct) Comparison ECG Date: from (01/10/2017) Change: the following changes noted (Borderline criteria for anterior lateral infarct, as well as no inferior infarct is noted on today's ECG) Blood Pressure Blood Pressure Findings: Normal blood pressure MDM Narrative Cardiac monitoring: An order was placed for continuous cardiac monitoring. The monitor shows a rate of 76 bpm with a normal sinus rhythm, low voltage QRS and age-indeterminate inferior and possible anterolateral infarcts. campus monitor history was reviewed throughout the evaluation, and no dysrhythmias were noted. Patient presents to the emergency department for evaluation of chronic dental infection, and periapical abscess with adjacent soft tissue abscess of ADA 28. At this point, I do not suspect sepsis. The patient will likely undergo I&D and other dental procedures as directed by Dr. Lara. Impression & Plan Dental abscess, Diabetes mellitus type II, uncontrolled, Thrombocytopenia Discharge Plan Visit Data Chief Complaint: Dental/Oral Stated Complaint: abscess ED Provider: Roni Sanchez ED Midlevel Provider: Alfred Hdez Discharge Problem: Dental abscess, Diabetes mellitus type II, uncontrolled, Thrombocytopenia Patient Disposition: Admitted As Inpatient Discharge Instructions Interventions: ED Discharge Assessment Last Done: 12/29/20 20:23 Discharge Problem: Diabetes mellitus type II, uncontrolled Qualifiers: Glycemic state: with hyperglycemia Qualified Code(s): E11.65 - Type 2 diabetes mellitus with hyperglycemia
[2020-12-29] MEDS ORDERED: MoRPHine SULFATE 2 MG/ML CARP IV STA (16:21)
[2020-12-29] MEDS ORDERED: ONDANSETRON INJ 2 MG/ML 2 ML VIAL IV STA (16:21)
[2020-12-29 16:29] LABS: Partial Thromboplastin Time 26.4 Seconds (21.0-31.0); Prothrombin Time 10.6 Seconds (9.0-12.0)
[2020-12-29 16:34] LABS: Alanine Aminotransferase 8 U/L (12-78); Albumin Level 3.4 gm/dl (3.4-5.0); Aspartate Aminotransferase 10 U/L (15-37); BUN Creatinine Ratio 18.8 (10-20); Blood Urea Nitrogen 24 mg/dl (7-18); Calcium 9.9 mg/dl (8.5-10.1); Carbon Dioxide 28 mmol/L (21-32); Chloride 102 mmol/L (98-107); Creatinine Clr Calc Pharmacy 59.7 ml/min; Est GFR (African American) 62.2; Est GFR (Non-African American) 53.6; Glucose 166 mg/dl (70-99); Potassium 3.8 mmol/L (3.5-5.1); Sodium 135 mmol/L (136-145)
[2020-12-29] MEDS: MoRPHine SULFATE 2 MG/ML CARP IV PRN ×2 (16:35→17:45)
[2020-12-29 16:37] LABS: Albumin Globulin Ratio 0.8 (0.9-2); Alkaline Phosphatase 98 U/L (45-117); Bilirubin,Total 0.5 mg/dl (0.2-1); Total Protein 7.4 gm/dl (6.4-8.2)
[2020-12-29 16:38] LABS: Basophils # (auto) 0.03 K/uL (0-0.2); Basophils % (auto) 0.3 %; Eosinophils # (auto) 0.21 K/uL (0-0.5); Hematocrit (blood only) 42.5 % (42-52); Hemoglobin 14.4 g/dL (14.0-18.0); Immature Granulocytes # (auto) 0.06 K/uL (0.00-0.02); Immature Granulocytes % (auto) 0.6 %; Lymphocytes # (auto) 2.31 K/uL (1.2-3.4); Mean Corpuscular Hemoglobin 30.8 pg (25-34); Mean Corpuscular Hgb Conc 33.9 g/dL (32-36); Mean Platelet Volume 11.8 fL (7.4-10.4); Monocytes # (auto) 0.79 K/uL (0.11-0.59); Monocytes % (auto) 7.5 %; Neutrophils # (auto) 7.09 K/uL (1.4-6.5); Neutrophils % (auto) 67.6 %; Platelet Count 63 K/uL (130-400); RDW Coefficient of Variation 14.5 % (11.5-14.5); RDW Standard Deviation 47.9 fL (36.4-46.3); Red Blood Count 4.67 M/uL (4.7-6.1); White Blood Count 10.49 K/uL (4.8-10.8)
--- NOTE | 2020-12-29 16:38 | XRay Report ---
XR chest 1V portable CLINICAL HISTORY: Infection COMPARISON STUDY: Chest radiograph November 07, 2016. FINDINGS: Lung volumes are normal. Linear bilateral opacities favor atelectasis. There is no consolid ation or evidence for pulmonary edema. No pneumothorax or pleural effusion is noted. There is no sign ificant change in appearance of the chest. There is borderline cardiomegaly. IMPRESSION: 1. No acute findings. 2. Linear bibasilar opacities which favor atelectasis. ACT 112: Negative or not required by law. Electronically signed by: Zeb Sales M.D. 12/29/2020 4:37 PM
[2020-12-29 16:48] LABS: Influenza A virus by PCR Negative (Neg); Influenza B virus by PCR Negative (Neg); RSV by PCR Negative (Neg); SARS CoV2 RNA(COVID-19) InHosp NEGATIVE (Negative)
[2020-12-29 16:53] LABS: Troponin I < 0.015 ng/ml (0-0.045)
[2020-12-29] MEDS ORDERED: OPTIRAY 320 100ml IV ONE (17:18)
--- NOTE | 2020-12-29 17:37 | CT Scan Report ---
CT facial bones wo/w con HISTORY: Right mandibular swelling. R mandibular abscess with and w/o per DR Lara TECHNIQUE: Multiaxial CT images of the facial bones were performed both before and after the intraven ous administration of 87 cc of Optiray 320. COMPARISON STUDY: None. FINDINGS: There is a 1 cm periapical lucency at ADA 28 demonstrating cortical breakthrough along the buccal surface and an adjacent 1.9 cm soft tissue abscess. This is best seen on axial image 195. Ther e is an additional 4 mm periapical lucency at ADA 22 without associated soft tissue abscess. Multiple dental caries are noted. The visualized brain parenchyma and orbits are unremarkable. The pterygopal atine fossa are well-maintained. The parotid and submandibular glands are symmetric. No upper cervica l lymphadenopathy identified. The epiglottis and visualized prevertebral soft tissues are normal in t hickness. There is a 1.3 cm anterior nasal septal defect. Right mandibular soft tissue swelling is no char. This is likely reactive. No abscess within the sublingual or submental spaces. Moderate calcifie d plaque within the bilateral carotid siphons and distal vertebral arteries without significant steno sis. There is mild right and moderate left carotid bifurcation calcified plaque. This results in appr oximately 30% focal stenosis at the proximal left internal carotid artery. The right internal carotid artery is patent. IMPRESSION: 1. A 1 cm periapical lucency at ADA 28 with associated cortical breakthrough at the buccal surface an d an adjacent 1.9 cm soft tissue abscess. 2. Additional periodontal disease as described above. ACT 112: Negative or not required by law. Electronically signed by: Armen Manriquez M.D. 12/29/2020 5:36 PM
[2020-12-29] MEDS ORDERED: HYDROmorphone INJ 0.5 MG/0.5 ML SYR IV STA (18:11)
[2020-12-29] MEDS ORDERED: POLYETHYLENE (MIRALAX) 17 GM PACK PO PRN (19:11)
[2020-12-29] MEDS ORDERED: INSULIN GLARGINE SOLOSTAR 100 UNITS/ML 3 ML PEN SQ SCH (21:00)
--- NOTE | 2020-12-29 22:14 | History & Physical Report ---
Date of Service December 29, 2020 Assessment & Plan (1) Dental abscess: Admit to medical will continue amp/sulbactam consult Dr. Lara NPO after midnight Will have I and D tomorrow. Platelets need to be above 50 (2) Abscessed tooth: as stated above (3) Hypertension: BP controlled. will resume meds (4) Diabetes mellitus type II, uncontrolled: resume meds. will closely monitor blood sugars. (5) Obesity, unspecified: BMI above 34 Admission and Anticipated Discharge Date Admission Date: December 29, 2020 History of Present Illness Primary Care Provider: Leno Craft DO This is a pleasant 75 yo male who comes into the hospital after being seen by Dr. lara for a tooth abscess. He was being treated with amoxicillin as an outpatient with no improvement. This has been ongoing for 6 months. This has worsened over past 2 weeks, and this was accompanied by chills. He reports pain is 8 out of 10. Allergies Allergy/AdvReac Type Severity Reaction Status Date / Time atenolol Allergy Intermediate pass out, Verified 12/29/20 15:55 chest pain atorvastatin [From Lipitor] Allergy Mild myalgia Verified 12/29/20 15:55 cilostazol [From Pletal] Allergy Unknown Unknown Verified 12/29/20 15:55 pollen extracts Allergy Unknown ENVIRONMENTAL Verified 12/29/20 15:55 ALLERGIES Home Medications Medication Instructions Recorded Confirmed Type mometasone 0.1 % topical cream 1 appln TOP BID PRN gm 07/31/19 12/29/20 History naproxen 500 mg tablet 500 mg PO BID PRN 07/31/19 12/29/20 History polyethylene glycol 3350 17 gram 17 gm PO DAILY PRN 07/31/19 12/29/20 History oral powder packet ibuprofen 200 mg tablet 400 mg PO QAM PRN tab 02/14/20 12/29/20 History allopurinol 300 mg tablet 300 mg PO DAILY #90 tab 08/14/20 12/29/20 Rx amlodipine 10 mg tablet 10 mg PO DAILY #90 tab 08/14/20 12/29/20 Rx blood sugar diagnostic #100 ea 08/14/20 12/29/20 Rx hydrochlorothiazide 25 mg tablet 25 mg PO DAILY #90 tab 08/14/20 12/29/20 Rx insulin glargine 100 unit/mL (3 40 unit SQ QPM 90 Days #36 ml 08/14/20 12/29/20 Rx mL) subcutaneous pen lancets #100 ea 08/14/20 12/29/20 Rx metformin 500 mg tablet,extended 1,000 mg PO BID #360 tab 08/14/20 12/29/20 Rx release 24 hr omeprazole magnesium 20 mg 20 mg PO DAILY #90 tab 08/14/20 12/29/20 Rx tablet,delayed release pen needle, diabetic 31 gauge x #100 ea 08/14/20 12/29/20 Rx 3" ramipril 10 mg capsule 10 mg PO BID #180 cap 08/14/20 12/29/20 Rx rosuvastatin 20 mg tablet 20 mg PO DAILY #90 tab 08/14/20 12/29/20 Rx dapagliflozin 10 mg tablet 10 mg PO DAILY #90 tab 11/26/20 12/29/20 Rx furosemide 20 mg tablet 20 mg PO DAILY #5 tab 11/26/20 12/29/20 Rx potassium chloride 20 mEq 20 meq PO DAILY #5 tab 11/26/20 12/29/20 Rx tablet,extended release Past Med/Surg History Medical History AAA (abdominal aortic aneurysm) small infrarenal aneurysm noted 04/2016 Ct scan Back pain Barretts esophagus Diabetes mellitus type II, uncontrolled (04/07/13) Diaphragmatic hernia without obstruction or gangrene Diverticulosis of colon Gout, unspecified Hepatic steatosis (~02/2020) Hypertension Mixed hyperlipidemia Osteoarthritis of knees, bilateral Senile cataract, unspecified Small bowel obstruction due to adhesions Thrombocytopenia Tobacco use disorder Umbilical hernia without obstruction or gangrene Surgical History History of partial colectomy History of repair of rotator cuff Family History Father Cancer Heart disease Myocardial infarction Mother Diabetes Dyslipidemia Hypertension Kidney disease Renal failure Sister Dyslipidemia Hypertension Diabetes Denies family history of Ovarian cancer Prostate cancer Breast cancer Lung cancer Colorectal cancer Social History Smoking Status: Former smoker Tobacco Type: Cigars Age Started Using Tobacco: 38; Second Hand Exposure: No; Do You Dip or Chew Tobacco: Yes; Tobacco Cessation Education Requested by Patient: No Hx Alcohol Use: Yes Alcohol type: beer Alcohol Intake Frequency: 2-4 x/Month Hx Substance Use: No Preferred Language: Bulgarian Communication Ability: Effective Visual Impairment: Limited Hearing Ability: Normal 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 Beliefs That Will Affect Care: None marital status: Current Living Situation: Spouse current occupational status: 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[employer] How many Children do You have: 1 Other Information That Helps Us Care for You: No Feels Safe at Home: Yes Safety Concerns: Feels Safe At This Time Childhood Exposure to Second-Hand Smoke: Yes caffeine: No Dental Care, Regularly: No Physical Activity Frequency: Does not Exercise Seatbelt Use: always Sunscreen Use: No Assistive Devices: Cane Review of Systems Constitutional: + chills; no fever and no sweats Eyes: no diplopia Ear, Nose, Mouth, Throat: + facial pain and + dental pain Respiratory: no cough and no dyspnea Cardiovascular: no chest pain and no radiating jaw, neck or arm pain Gastrointestinal: no bloating Genitourinary: no dysuria and no urinary frequency Musculoskeletal: no back pain Neurologic: no gait abnormality and no falls Psychiatric: no behavioral changes Endocrine: no fatigue Hematologic / Lymphatic: no easy bleeding Physical Exam Constitutional: WD/WN, vitals as above Eyes: PERRL, conjunctivae normal, anicteric sclerae ENMT: Patient has poor dentition. Mild edema of the right mandibular region. No facial erythema or fluctuance noted. notable gingival edema Results & Data Results & Data ([facility]) Vital Signs (Past 12 Hours) Vital Signs Temp Pulse Pulse Pulse Resp BP BP 12/29/20 20:35 37.1 C 99 H 20 152/92 H 12/29/20 20:23 78 18 155/88 H 12/29/20 18:18 72 16 155/88 H 12/29/20 17:44 36.7 C 71 17 160/105 H 12/29/20 15:59 76 20 134/97 12/29/20 15:36 36.3 C L 86 18 147/89 H Pulse Ox 12/29/20 20:35 98 12/29/20 20:23 96 12/29/20 18:18 95 12/29/20 17:44 96 12/29/20 15:59 96 12/29/20 15:36 96 PG Care Time/CCT Total # of Minutes Spent Total Time Spent with Patient: Total time spent is greater than 50% in coordination of care (as documented) at patient's floor/unit and/or counseling patient: Coding Level of Care Code 00593 Initial Inpt Care Lvl 3 Diagnoses Dental abscess K04.7 Abscessed tooth K04.7 Hypertension I10 Diabetes mellitus type II, uncontrolled E11.65 Glycemic state: with hyperglycemia Obesity, unspecified E66.9 Time Spent (min) 45 (1) Diabetes mellitus type II, uncontrolled Glycemic state: with hyperglycemia Qualified Code(s): E11.65 - Type 2 diabetes mellitus with hyperglycemia
[2020-12-29] MEDS ORDERED: GLUCOSE 40% GEL 15 GM TUBE PO PRN (22:15)
[2020-12-29] MEDS ORDERED: GLUCAGON FOR INJ 1 MG VIAL IM PRN (22:15)
[2020-12-29] MEDS ORDERED: DEXTROSE 50% 50 ML SYRINGE IV PRN (22:15)
[2020-12-29] MEDS ORDERED: CARBOHYDRATES FOR HYPOGLYCEMIA PO PRN (22:15)
[2020-12-29] MEDS ORDERED: GLUCOSE 10 TABS/TUBE PO PRN (22:15)
[2020-12-29] MEDS: AMPICILLIN/SULBACTAM SOD 3,000 MG in 0.9 % SODIUM CHLORIDE 100 ML IV SCH (23:09)
[2020-12-29] MEDS ORDERED: HYDROmorphone INJ 0.5 MG/0.5 ML SYR IV PRN (23:31)
[2020-12-29] MEDS ORDERED: ACETAMINOPHEN 325 MG TAB PO PRN (23:31)
[2020-12-30] MEDS: AMPICILLIN/SULBACTAM SOD 3,000 MG in 0.9 % SODIUM CHLORIDE 100 ML IV SCH ×4 (03:18→21:54)
[2020-12-30] MEDS: HYDROmorphone INJ 0.5 MG/0.5 ML SYR IV PRN ×3 (03:21→15:44)
--- NOTE | 2020-12-30 07:36 | Oral/Maxillofacial Consult ---
Date of Consultation December 30, 2020 Oral Maxillofacial Surgery Exam---Emergence consult Present Complaint: I have pain/swelling/drainage from my infected teeth. Symptoms have been ongoing for a while they would come and go. I have been trying to see a dentist for over 6 months--now my right chin and face is swollen My pain is off the roof. all my teeth are fractured and i hurt I can`t eat or sleep--I need help! Oral Exam: Finding-- tender gingival tissue with deep pocket formation.Teeth are in an abnormal position and removal is clinical indicated. all teeth are either infected or decayed beyond repair There are multi draining fistula The lower right side is swollen with expansion of bone indicating a large 1 cm cyst with destruction of the bone leaving a large bony defect Imaging: CT scan CT was reviewed, there were no abnormal findings other then the infected teeth and cystic lesion lower right side teeth. The TMJ are well positioned and no evidence of bony pathology. The sinus, supporting bone all WNL Evaluated the nerve/sinus relationship to the roots of the teeth. The following teeth are decayed/fractured--#all remaining teeth are beyond sabianist are fractured and decayed Ideally if medically able (given lower Platelet level) to remove all the infected teeth due to the ongoing infection, pain,swelling and expanded cortex lower right side. Soft tissue: floor of the mouth, tongue, hard/soft palate, posterior pharyngeal area all with in normal limits, no pathology or abnormal findings noted. No lesions noted that require follow up or Bx. Noted draining infection throughout the mouth Oral Care: Overall oral care is very POOR Occlusion: Class I ? with missing and fractured teeth mastication is impaired TMJ exam: No pop, clicking, pain, good ROM, No history of TMJ injury or dysfunction Periodontal exam: Healthy gingival tissue without evidence of periodontal pathology Head/Neck exam: Neck is supple, FROM, Able to extend and flex neck w/o difficulty, no masses, no abnormalities, no airway issues. Treatment Plan: Given the uncontrolled pain, swelling, failure of out patient care admission to hospital is medically indicated I reviewed the treatment plan and consent with the patient and his . Understanding was expressed. Time was given for questions regarding the surgery, risks and post op care. Discussed alternative to treatment--procedure as planned, Do not do surgery Ideally should remove all fractured given the history of pain, swelling, bleeding gums, current facial infection The following teeth are decayed and fractured and removal is indicated GUNNER:tooth 5 to 14 on the upper and all lower teeth Drainage of infection, removal of the cyst, extraction of the all the teeth. Need to determine if the low Platelets will effect my choice of surgery Risks discussed: Pain,swelling,infection, dry socket, delayed healing, nerve injury to face,lips,tongue,chin area which could be permanent (rare). TMJ, jaw stiffness, change in bite (rare), ear pain (referred). post op bleeding due to low Platelet count Sinus problems like fistula or infection. Need to leave a small root fragment in place to avoid injury to nerve or sinus. Relationship of teeth to nerve/sinus and risk of jaw fracture. Need biopsy of the lesion and follow up Surgery to be set up once we get medically clearance for the anesthesia and the low Platelet count. Once I get opinion regarding the level of platelets I will set up the procedures at the OR. I will be seeing Mr Castellano and finalize his treatment plan and sign the consents as well as making the arrangements with the OR. History of Present Illness Attending Physician: Farzad Lopez Allergies Allergy/AdvReac Type Severity Reaction Status Date / Time atenolol Allergy Intermediate pass out, Verified 12/29/20 15:55 chest pain atorvastatin [From Lipitor] Allergy Mild myalgia Verified 12/29/20 15:55 cilostazol [From Pletal] Allergy Unknown Unknown Verified 12/29/20 15:55 pollen extracts Allergy Unknown ENVIRONMENTAL Verified 12/29/20 15:55 ALLERGIES Home Medications Medication Instructions Recorded Confirmed Type mometasone 0.1 % topical cream 1 appln TOP BID PRN gm 07/31/19 12/29/20 History naproxen 500 mg tablet 500 mg PO BID PRN 07/31/19 12/29/20 History polyethylene glycol 3350 17 gram 17 gm PO DAILY PRN 07/31/19 12/29/20 History oral powder packet ibuprofen 200 mg tablet 400 mg PO QAM PRN tab 02/14/20 12/29/20 History allopurinol 300 mg tablet 300 mg PO DAILY #90 tab 08/14/20 12/29/20 Rx amlodipine 10 mg tablet 10 mg PO DAILY #90 tab 08/14/20 12/29/20 Rx blood sugar diagnostic #100 ea 08/14/20 12/29/20 Rx hydrochlorothiazide 25 mg tablet 25 mg PO DAILY #90 tab 08/14/20 12/29/20 Rx insulin glargine 100 unit/mL (3 40 unit SQ QPM 90 Days #36 ml 08/14/20 12/29/20 Rx mL) subcutaneous pen lancets #100 ea 08/14/20 12/29/20 Rx metformin 500 mg tablet,extended 1,000 mg PO BID #360 tab 08/14/20 12/29/20 Rx release 24 hr omeprazole magnesium 20 mg 20 mg PO DAILY #90 tab 08/14/20 12/29/20 Rx tablet,delayed release pen needle, diabetic 31 gauge x #100 ea 08/14/20 12/29/20 Rx 3/16" ramipril 10 mg capsule 10 mg PO BID #180 cap 08/14/20 12/29/20 Rx rosuvastatin 20 mg tablet 20 mg PO DAILY #90 tab 08/14/20 12/29/20 Rx dapagliflozin 10 mg tablet 10 mg PO DAILY #90 tab 11/26/20 12/29/20 Rx furosemide 20 mg tablet 20 mg PO DAILY #5 tab 11/26/20 12/29/20 Rx potassium chloride 20 mEq 20 meq PO DAILY #5 tab 11/26/20 12/29/20 Rx tablet,extended release Patient History Medical History AAA (abdominal aortic aneurysm) small infrarenal aneurysm noted 04/2016 Ct scan Back pain Barretts esophagus Diabetes mellitus type II, uncontrolled (04/07/13) Diaphragmatic hernia without obstruction or gangrene Diverticulosis of colon Gout, unspecified Hepatic steatosis (~02/2020) Hypertension Mixed hyperlipidemia Osteoarthritis of knees, bilateral Senile cataract, unspecified Small bowel obstruction due to adhesions Thrombocytopenia Tobacco use disorder Umbilical hernia without obstruction or gangrene Surgical History History of partial colectomy History of repair of rotator cuff Family History Father Cancer Heart disease Myocardial infarction Mother Diabetes Dyslipidemia Hypertension Kidney disease Renal failure Sister Dyslipidemia Hypertension Diabetes Denies family history of Ovarian cancer Prostate cancer Breast cancer Lung cancer Colorectal cancer Social History Smoking Status: Former smoker Tobacco Type: Cigars Age Started Using Tobacco: 38; Second Hand Exposure: No; Do You Dip or Chew Tobacco: Yes; Tobacco Cessation Education Requested by Patient: No Hx Alcohol Use: Yes Alcohol type: beer Alcohol Intake Frequency: 2-4 x/Month Hx Substance Use: No Preferred Language: Wolof Communication Ability: Effective Visual Impairment: Limited Hearing Ability: Normal 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 Beliefs That Will Affect Care: None marital status: Current Living Situation: Spouse current occupational status: retired current occupation: [email or web address] How many Children do You have: 1 Other Information That Helps Us Care for You: No Feels Safe at Home: Yes Safety Concerns: Feels Safe At This Time Childhood Exposure to Second-Hand Smoke: Yes caffeine: No Dental Care, Regularly: No Physical Activity Frequency: Does not Exercise Seatbelt Use: always Sunscreen Use: No Assistive Devices: Cane Results & Data ([facility]) Vital Signs (Past 12 Hours) Vital Signs Temp Pulse Pulse Resp BP BP Pulse Ox 12/29/20 20:35 37.1 C 99 H 20 152/92 H 98 12/29/20 20:23 78 18 155/88 H 96 PG Care Time/CCT Total # of Minutes Spent Total Time Spent with Patient: Total time spent is greater than 50% in coordination of care (as documented) at patient's floor/unit and/or counseling patient: Coding Level of Care Code 96625 Initial Inpt Care Lvl 3
--- NOTE | 2020-12-30 10:40 | Hospitalist Progress Note ---
Date of Service December 30, 2020 Assessment & Plan (1) Dental abscess: AdmitTED to medical will continue iv amp/sulbactam consult Dr. Marco IVAN after midnight Will start IVF today as surgery is planned at 16:00 Will transfuse platelets, consent has been obtained. (2) Hypertension: BP controlled. will resume meds. continue insulin glargine. (3) Diabetes mellitus type II, uncontrolled: resume meds. will closely monitor blood sugars. (4) Obesity, unspecified: BMI above 34 Admission and Anticipated Discharge Date Admission Date: December 29, 2020 Subjective Patient reports feeling lousy today but all of his complaints are in his mouth. He denies any fever, chills, nausea, vomiting. Review of Systems Review of Systems: All systems reviewed & are unremarkable except as noted in HPI & below Physical Exam Physical Exam: Constitutional: WD/WN, vitals as above Eyes: PERRL, conjunctivae normal, anicteric sclerae ENMT: Patient has poor dentition. Mild edema of the right mandibular region. No facial erythema or fluctuance noted. notable gingival edema Neck: trachea midline, no thyromegaly Respiratory: normal respiratory effort, lungs clear to auscultation Cardiovascular: RRR, no murmur, no edema Gastrointestinal (Abdomen): normal bowel sounds, soft, nontender, no hepatosplenomegaly Musculoskeletal: no cyanosis or clubbing, extremities motor strength 5/5 Neurologic: PERRL, EOMI, accommodation nl, no face palsy, no dysarthria Psychiatric: A+Ox3, euthymic affect Lymphatic: no cervical or axillary lymphadenopathy Results & Data Results & Data ([facility]) Vital Signs (Past 12 Hours) Vital Signs Temp Pulse Resp BP Pulse Ox 12/30/20 07:33 36.7 C 62 18 131/81 93 PG Care Time/CCT Total # of Minutes Spent Total Time Spent with Patient: Total time spent is greater than 50% in coordination of care (as documented) at patient's floor/unit and/or counseling patient: Coding Level of Care Code 81634 Subseq Hosp Care Lvl 2 Diagnoses Dental abscess K04.7 Hypertension I10 Diabetes mellitus type II, uncontrolled E11.65 Glycemic state: with hyperglycemia Obesity, unspecified E66.9 Time Spent (min) 25 (1) Diabetes mellitus type II, uncontrolled Glycemic state: with hyperglycemia Qualified Code(s): E11.65 - Type 2 diabetes mellitus with hyperglycemia
[2020-12-30] MEDS: POTASSIUM CHLORIDE CRTAB 20 MEQ TABCR PO SCH (10:54)
[2020-12-30] MEDS: hydroCHLOROthiazide 25 MG TAB PO SCH (10:54)
[2020-12-30] MEDS: FUROSEMIDE 20 MG TAB PO SCH (10:54)
[2020-12-30] MEDS: allopurinoL 300 MG TAB PO SCH (10:54)
[2020-12-30] MEDS: PANTOprazole 40 MG TAB PO SCH (10:54)
[2020-12-30] MEDS: ROSUVASTATIN CALCIUM 20 MG TAB PO SCH (10:55)
[2020-12-30] MEDS: LACTATED RINGER'S 1,000 ML IV SCH (11:01)
[2020-12-30] MEDS: amLODIPine BESYLATE 5 MG TAB PO SCH (11:02)
[2020-12-30] MEDS: ENALAPRIL MALEATE 10 MG TAB PO SCH ×2 (11:02→21:38)
--- NOTE | 2020-12-30 14:22 | Electrocardiogram Report ---
Test Reason : Blood Pressure : / mmHG Vent. Rate : 076 BPM Atrial Rate : 076 BPM P-R Int : 172 ms QRS Dur : 082 ms QT Int : 378 ms P-R-T Axes : -14 -56 029 degrees QTc Int : 425 ms Normal sinus rhythm Left axis deviation Low voltage QRS Inferior infarct , age undetermined Poor R wave progression, consider anterior MT vs. lead placement vs. LVH Abnormal ECG When compared with ECG of 10-JAN-2017 09:37, Inferior infarct is now Present Confirmed by Jd Godoy ([id number]) on 12/30/2020 2:21:33 PM Referred By: Leno Craft Confirmed By:Renny Godoy
[2020-12-30] MEDS ORDERED: PHARMACY GLYCEMIC MGMT CONSULT PRN (14:31)
[2020-12-30] MEDS: INSULIN ASPART 100 UNITS/ML 3 ML PEN SC SCH ×3 (14:48→23:53)
--- NOTE | 2020-12-30 14:48 | Pharmacy Report ---
Pharmacy Glycemic Short Note 2 - Date of Service December 30, 2020 - Glycemic Short BSG Results (Last 24 hours): 12/29/20 12/29/20 12/30/20 16:08 21:09 08:17 Glucose 166 H POC Glucose 135 H 111 H OUTPATIENT ANTIDIABETIC REGIMEN: * Lantus 40 units SC qPM * Metformin * Dapagliflozin * HbA1c ordered for 12/31/20 ASSESSMENT: * 75 yo M with significant mouth pain, anticipated for surgery later today with Dr. Lara for multiple tooth extractions * Currently NPO for surgery. Even if diet ordered post-op, post-surgical oral pain may limit oral intake * Only insulin patient receives at home is Lantus - may cover some prandial needs * Only BSG's obtained as inpatient thus far are adequate, but none since this AM * Will reduce Lantus for NPO status and uncertain future po intake * Will add on Novolog q6h PLAN FOR INPATIENT GLYCEMIC CONTROL: * Basal insulin * Lantus 20-30 units SQ HS based on BSG * Bolus insulin * NovoLog per scale ACHS or Q6hrs while NPO * Goal Range: Low 110 mg/dL - High 140 mg/dL * Correction Factor: 20 mg/dL/unit * Nutritional / Prandial insulin per carb ratio of 1 unit per 7 grams CHO consumed
[2020-12-30] MEDS ORDERED: PROPOFOL IV EMULSION 10 MG/ML 20 ML VIAL IV ONE (15:37)
[2020-12-30] MEDS ORDERED: MIDAZOLAM HCL 1 MG/ML 2ML VIAL ONE (15:37)
[2020-12-30] MEDS ORDERED: LIDOCAINE HCL 2% 2 ML VIAL/AMP(20MG/ML) INFIL ONE (15:37)
[2020-12-30] MEDS ORDERED: SUCCINYLCHOLINE CHLORIDE 20 MG/ML 10 ML VIAL IV ONE (15:37)
[2020-12-30] MEDS ORDERED: fentaNYL citrate 100 MCG/2 ML VIAL ONE (15:37)
[2020-12-30] MEDS ORDERED: ROCURONIUM BROMIDE 10 MG/ML 5 ML VIAL IV ONE (15:38)
[2020-12-30] MEDS ORDERED: ONDANSETRON INJ 2 MG/ML 2 ML VIAL ONE ×2 (15:38→18:45)
[2020-12-30] MEDS ORDERED: LARYING-O-JET KIT (LTA) ONE (15:41)
--- NOTE | 2020-12-30 16:07 | History & Physical Bridge Note ---
Date of Service December 30, 2020 History & Physical Bridge Note I have examined the patient, reviewed the History & Physical and in the interval since the performance of the History & Physical I have noted the following changes of clinical significance: no changes noted. Had Platelet transfusion --after discussion with Dr Lieb. ASHFORD for procedures
--- NOTE | 2020-12-30 16:24 | Anesthesiology Consultation ---
Date of Service December 30, 2020 Assessment & Plan Chart Review Chart Review: Acceptable Risk for Surgery and Patient NOT seen in Pre Admission Testing Consults Requested none ASA ASA4 Proposed Anesthesia Anesthesia Type: General Risk / Benefits Reviewed With: PT / POA / Parent / Guardian, Accepts Plan and Informed Consent Obtained Additional Comments: covid test negative History Surgery Operation Date: 12/30/20 12:10 Proposed Procedures p Right Incision and Drainage Facial Infection, Removal of Right Jaw Cyst - Yossi Lara DMD s Extraction of Teeth - Yossi Lara DMD Height/Weight Height: 5 ft 10 in Weight: 109 kg Allergies Allergy/AdvReac Type Severity Reaction Status Date / Time atenolol Allergy Intermediate pass out, Verified 12/29/20 15:55 chest pain atorvastatin [From Lipitor] Allergy Mild myalgia Verified 12/29/20 15:55 cilostazol [From Pletal] Allergy Unknown Unknown Verified 12/29/20 15:55 pollen extracts Allergy Unknown ENVIRONMENTAL Verified 12/29/20 15:55 ALLERGIES Medications Home Medications Medication Instructions Recorded Confirmed Last Taken mometasone 0.1 % topical cream 1 appln TOP BID PRN gm 07/31/19 12/29/20 Unknown naproxen 500 mg tablet 500 mg PO BID PRN 07/31/19 12/29/20 Unknown polyethylene glycol 3350 17 gram 17 gm PO DAILY PRN 07/31/19 12/29/20 Unknown oral powder packet ibuprofen 200 mg tablet 400 mg PO QAM PRN tab 02/14/20 12/29/20 Unknown allopurinol 300 mg tablet 300 mg PO DAILY #90 tab 08/14/20 12/29/20 12/29/20 amlodipine 10 mg tablet 10 mg PO DAILY #90 tab 08/14/20 12/29/20 12/29/20 blood sugar diagnostic #100 ea 08/14/20 12/29/20 Unknown hydrochlorothiazide 25 mg tablet 25 mg PO DAILY #90 tab 08/14/20 12/29/20 Unknown insulin glargine 100 unit/mL (3 40 unit SQ QPM 90 Days #36 ml 08/14/20 12/29/20 12/28/20 mL) subcutaneous pen lancets #100 ea 08/14/20 12/29/20 Unknown metformin 500 mg tablet,extended 1,000 mg PO BID #360 tab 08/14/20 12/29/20 12/29/20 08:00 release 24 hr omeprazole magnesium 20 mg 20 mg PO DAILY #90 tab 08/14/20 12/29/20 12/29/20 tablet,delayed release pen needle, diabetic 31 gauge x #100 ea 08/14/20 12/29/20 Unknown 3/16" ramipril 10 mg capsule 10 mg PO BID #180 cap 08/14/20 12/29/20 12/29/20 08:00 rosuvastatin 20 mg tablet 20 mg PO DAILY #90 tab 08/14/20 12/29/20 12/29/20 dapagliflozin 10 mg tablet 10 mg PO DAILY #90 tab 11/26/20 12/29/20 12/29/20 furosemide 20 mg tablet 20 mg PO DAILY #5 tab 11/26/20 12/29/20 12/29/20 potassium chloride 20 mEq 20 meq PO DAILY #5 tab 11/26/20 12/29/20 12/29/20 tablet,extended release Active Medications Generic Name Dose Route Start Last Admin Trade Name Joseq PRN Reason Stop Dose Admin Acetaminophen 650 mg 12/29/20 23:31 12/30/20 03:20 Acetaminophen 325 Mg Tab PO 01/28/21 23:30 650 mg Q6H PRN Administration Pain & Pre PT Allopurinol 300 mg 12/30/20 09:00 12/30/20 10:54 Allopurinol 300 Mg Tab PO 01/29/21 08:59 Not Given DAILY MORAIMA Amlodipine Besylate 10 mg 12/30/20 09:00 12/30/20 11:02 Amlodipine Besylate 5 Mg Tab PO 01/29/21 08:59 10 mg DAILY MORAIMA Administration Enalapril Maleate 40 mg 12/30/20 09:00 12/30/20 11:02 Enalapril Maleate 10 Mg Tab PO 01/29/21 08:59 40 mg BID MORAIMA Administration Protocol Furosemide 20 mg 12/30/20 09:00 12/30/20 10:54 Furosemide 20 Mg Tab PO 01/29/21 08:59 Not Given DAILY MORAIMA Hydrochlorothiazide 25 mg 12/30/20 09:00 12/30/20 10:54 Hydrochlorothiazide 25 Mg Tab PO 01/29/21 08:59 Not Given DAILY MORAIMA Hydromorphone HCl 0.5 mg 12/29/20 23:31 12/30/20 15:44 Hydromorphone Inj 0.5 Mg/0.5 Ml Syr IV 01/12/21 23:30 0.5 mg Q3H PRN Administration Pain (6,7,8,9,10) Ampicillin Sodium/Sulbactam 108 mls @ 200 mls/hr 12/29/20 22:00 12/30/20 15:44 Sodium 3,000 mg/ Sodium IV 01/08/21 21:59 200 mls/hr Chloride Q6H MORAIMA Administration Protocol Lactated Ringer's 1,000 mls @ 80 mls/hr 12/30/20 09:45 12/30/20 11:01 Lr IV 01/29/21 09:44 80 mls/hr .[id number] MORAIMA Administration Insulin Aspart 0 units 12/30/20 14:45 12/30/20 14:48 Insulin Aspart 100 Units/Ml 3 Ml Pen SC 01/29/21 14:44 Not Given Q6 MORAIMA Protocol Pantoprazole Sodium 40 mg 12/30/20 09:00 12/30/20 10:54 Pantoprazole 40 Mg Tab PO 01/29/21 08:59 Not Given DAILY MORAIMA Protocol Potassium Chloride 20 meq 12/30/20 09:00 12/30/20 10:54 Potassium Chloride Crtab 20 Meq Tabcr PO 01/29/21 08:59 Not Given DAILY MORAIMA Rosuvastatin Calcium 20 mg 12/30/20 09:00 12/30/20 10:55 Rosuvastatin Calcium 20 Mg Tab PO 01/29/21 08:59 Not Given DAILY MORAIMA NPO Date Last Intake of Fluids: 12/29/20 Time Last Intake of Fluids: 22:00 Last Intake of Fluids Comment: sips of water with meds Date Last Intake of Solids: 12/16/20 Time Last Intake of Solids: 18:00 Last Intake of Solids Comment: at least NPO > 24 hours Past Medical History Medical History AAA (abdominal aortic aneurysm) small infrarenal aneurysm noted 04/2016 Ct scan Back pain Barretts esophagus Diabetes mellitus type II, uncontrolled (04/07/13) Diaphragmatic hernia without obstruction or gangrene Diverticulosis of colon Gout, unspecified Hepatic steatosis (~02/2020) Hypertension Mixed hyperlipidemia Osteoarthritis of knees, bilateral Senile cataract, unspecified Small bowel obstruction due to adhesions Thrombocytopenia Tobacco use disorder Umbilical hernia without obstruction or gangrene Exercise / Class Metabolic Activity III < 4 Walking/Shop/Light housework Past Family History Family History Father Cancer Heart disease Myocardial infarction Mother Diabetes Dyslipidemia Hypertension Kidney disease Renal failure Sister Dyslipidemia Hypertension Diabetes Denies family history of Ovarian cancer Prostate cancer Breast cancer Lung cancer Colorectal cancer Past Surgical History Surgical History History of partial colectomy History of repair of rotator cuff Past Anesthesia History No Hx of Anesthesia Complications and No Family Hx of Anesthesia Complications History of PONV No Hx of PONV and No Hx of Motion Sickness Social History Smoking Status: Former smoker tobacco type: cigars Do You Dip or Chew Tobacco: Yes Hx Alcohol Use: Yes Alcohol type: beer alcohol intake frequency: a few times a month Hx Substance Use: No Physical Exam Vital Signs Last Vital Signs Temp 37.2 C 12/30/20 15:57 Pulse 76 12/30/20 15:57 Resp 20 12/30/20 15:57 BP 157/102 H 12/30/20 15:57 Pulse Ox 95 12/30/20 15:57 Constitutional + obese ENMT Mouth: + dentition abnormality, + gingival abnormality, + dental caries and + poor dentition Thyromental Distance: < 3.5 Finger Breadths Mallampati Class: III Neck normal visual inspection and trachea midline; neck extension not limited Respiratory normal respiratory effort Auscultation: lungs clear to auscultation bilaterally Cardiovascular Rate/Rhythm: regular rate and regular rhythm Heart Sounds: no murmur Vessels: no carotid bruit Musculoskeletal Spine: normal cervical ROM Extremities: extremities normal to inspection Neurologic moves all extremities Motor/Sensory: no sensory deficit Psychiatric Orientation: alert and oriented x 3 Testing Laboratory Results 12/29/20 16:08 12/29/20 16:08 PT 10.6 Seconds (9.0-12.0) 12/29/20 16:08 INR 1.0 (0.9-1.1) 12/29/20 16:08 APTT 26.4 Seconds (21.0-31.0) 12/29/20 16:08 12/30/20 12/30/20 12/30/20 16:02 12:17 08:17 POC Glucose 122 H 109 H 111 H Electrocardiogram Date: 12/29/20 Findings: + NSR @ (at 76;low voltage QRS) and + NSST changes Chest X-Ray Date: 12/29/20 Findings: + NAD
[2020-12-30] MEDS ORDERED: CHLORHEXIDINE GLUCONATE 0.12% 480 ML ONE (16:31)
[2020-12-30] MEDS ORDERED: LIDOCAINE 2%/EPINEPHRINE 1:100,000 1.8 ML CARTRIDGE ONE ×2 (16:34→17:24)
[2020-12-30] MEDS ORDERED: DEXAMETHASONE SOD INJ 4 MG/ML VIAL ONE ×2 (16:57→17:16)
[2020-12-30] MEDS ORDERED: NEOSTIGMINE METHYLSULFATE 5 MG/5 ML SYR ONE (16:57)
[2020-12-30] MEDS ORDERED: GLYCOPYRROLATE 0.2 MG/ML VIAL ONE (16:57)
[2020-12-30] MEDS ORDERED: ePHEDrine sulfate 50 MG/ML SYR ONE (17:21)
[2020-12-30] MEDS ORDERED: NALOXONE HCL 0.4 MG/1 ML VIAL/CARP IV PRN (18:17)
[2020-12-30] MEDS ORDERED: ePHEDrine sulfate 50 MG/ML AMP IV PRN (18:17)
[2020-12-30] MEDS ORDERED: FLUMAZENIL 0.1 MG/1 ML 10 ML VIAL IV PRN (18:17)
[2020-12-30] MEDS ORDERED: ATROPINE SULFATE 0.1 MG/ML 10ML SYR IV PRN (18:17)
[2020-12-30] MEDS ORDERED: ONDANSETRON INJ 2 MG/ML 2 ML VIAL IV PRN (18:17)
[2020-12-30] MEDS ORDERED: PROMETHAZINE HCL 12.5 MG in SODIUM CHLORIDE 0.9% 50 ML IV PRN (18:17)
--- NOTE | 2020-12-30 18:46 | Post Operative Brief Note ---
PG Immediate Post Op with CF Date of Surgery December 30, 2020 Pre & Post Diagnosis Operation Date: 12/30/20 12:10 Pre-Op Diagnosis: Facial Abscess Post-Op Diagnosis: Facial Abscess I identified the patient and participated in the time-out.: Yes Procedure Operation Date: 12/30/20 12:10 Actual Procedures p Right Incision and Drainage Facial Infection, Removal of Right Jaw Cyst(Right) - Yossi Lara DMD s Extraction of Infected Teeth(Bilateral) - Yossi Lara DMD Surgeon Yossi Lara DMD Pantograph I Engraver none Estimated Blood Loss 15 Findings Consistent with Post-Op Diagnosis Specimens Specimen Description: Cultures 1. Infection of Right Jaw - Superficial 2. Infection of Right Jaw - Deep Permanent A. Soft Tissue Lesion Right Mamdible
[2020-12-30] MEDS: fentaNYL citrate 100 MCG/2 ML VIAL IV PRN ×2 (18:51→18:56)
--- NOTE | 2020-12-30 19:06 | Anesthesiology Progress Note ---
Date of Service December 30, 2020 Anesthesia Post Procedure Vital Signs Vital Signs: Temp Pulse Pulse Pulse Resp BP BP 12/30/20 18:55 69 21 12/30/20 18:45 75 14 12/30/20 18:37 36.4 C L 86 16 12/30/20 16:28 36.7 C 68 16 142/87 H 12/30/20 15:57 37.2 C 76 20 157/102 H 12/30/20 15:47 36.6 C 73 18 151/88 H 12/30/20 15:29 36.7 C 75 18 143/83 H 12/30/20 07:33 36.7 C 62 18 131/81 12/29/20 20:35 37.1 C 99 H 20 152/92 H 12/29/20 20:23 78 18 155/88 H BP Pulse Ox 12/30/20 18:55 142/79 H 94 12/30/20 18:45 148/77 H 94 12/30/20 18:37 153/82 H 96 12/30/20 16:28 94 12/30/20 15:57 95 12/30/20 15:47 94 12/30/20 15:29 94 12/30/20 07:33 93 12/29/20 20:35 98 12/29/20 20:23 96 Pain Intensity Right Lower Cheek: Pain Intensity: 8 Mouth: Pain Intensity: 5 Transfer of Care Handoff Completed per policy Notes Mental Status: alert / awake / arousable Patient Amnestic to Procedure: Yes Nausea / Vomiting: adequately controlled Pain: adequately controlled Airway Patency, RR, SpO2: stable & adequate BP & HR: stable & adequate Hydration State: stable & adequate Anesthetic Complications: no major complications apparent
[2020-12-30] MEDS ORDERED: INSULIN GLARGINE SOLOSTAR 100 UNITS/ML 3 ML PEN SQ SCH (21:00)
[2020-12-30] MEDS ORDERED: KETOROLAC TROMETHAMINE 15 MG/ML VIAL IV ONE (22:18)
[2020-12-31] MEDS: AMPICILLIN/SULBACTAM SOD 3,000 MG in 0.9 % SODIUM CHLORIDE 100 ML IV SCH ×2 (03:23→09:06)
[2020-12-31] MEDS: LACTATED RINGER'S 1,000 ML IV SCH ×2 (03:58→15:10)
[2020-12-31] MEDS: INSULIN ASPART 100 UNITS/ML 3 ML PEN SC SCH (05:48)
[2020-12-31 07:20] LABS: Hemoglobin 13.2 g/dL (14.0-18.0); Mean Corpuscular Hemoglobin 31.7 pg (25-34); Mean Corpuscular Hgb Conc 34.7 g/dL (32-36); Mean Corpuscular Volume 91.1 fL (80-100); Mean Platelet Volume 10.6 fL (7.4-10.4); Platelet Count 108 K/uL (130-400); RDW Coefficient of Variation 14.3 % (11.5-14.5); RDW Standard Deviation 47.3 fL (36.4-46.3); Red Blood Count 4.17 M/uL (4.7-6.1); White Blood Count 8.02 K/uL (4.8-10.8)
[2020-12-31 07:38] LABS: Platelet Estimate Decreased (Normal)
[2020-12-31] MEDS ORDERED: INSULIN GLARGINE SOLOSTAR 100 UNITS/ML 3 ML PEN SQ ONE (08:30)
[2020-12-31] MEDS: allopurinoL 300 MG TAB PO SCH (08:45)
[2020-12-31] MEDS: amLODIPine BESYLATE 5 MG TAB PO SCH (08:45)
[2020-12-31] MEDS: ENALAPRIL MALEATE 10 MG TAB PO SCH (08:46)
[2020-12-31] MEDS: FUROSEMIDE 20 MG TAB PO SCH (08:47)
[2020-12-31] MEDS: hydroCHLOROthiazide 25 MG TAB PO SCH (08:47)
[2020-12-31] MEDS: POTASSIUM CHLORIDE CRTAB 20 MEQ TABCR PO SCH (08:48)
[2020-12-31] MEDS: PANTOprazole 40 MG TAB PO SCH (08:48)
[2020-12-31] MEDS: ROSUVASTATIN CALCIUM 20 MG TAB PO SCH (08:48)
[2020-12-31 09:15] LABS: Estimated Average Glucose 212 mg/dl
--- NOTE | 2020-12-31 09:52 | Pharmacy Report ---
Pharmacy Glycemic Short Note 2 - Date of Service December 31, 2020 - Glycemic Short BSG Results (Last 24 hours): 12/30/20 12/30/20 12/30/20 12:17 16:02 18:42 POC Glucose 109 H 122 H 109 H 12/30/20 12/31/20 23:49 05:43 POC Glucose 179 H 186 H OUTPATIENT ANTIDIABETIC REGIMEN: * Lantus 40 units SC qPM * Metformin * Dapagliflozin * HbA1c ordered for 12/31/20 ASSESSMENT: 12/31 * Dexamethasone was overriden and not returned in the perioperative period yesterday, and likely given, which would explain increase in BSG's * Will temporarily tighten correction factor and increase checks to q4h as steroid effects will persist throughout the day today. Will change back to q6h and loosen tomorrow AM * Will increase Lantus slightly by giving one-time additional dose this AM * Patient remains NPO - even if diet ordered, do not anticipate po intake will be substantial 12/30 * 75 yo M with significant mouth pain, anticipated for surgery later today with Dr. Lara for multiple tooth extractions * Currently NPO for surgery. Even if diet ordered post-op, post-surgical oral pain may limit oral intake * Only insulin patient receives at home is Lantus - may cover some prandial needs * Only BSG's obtained as inpatient thus far are adequate, but none since this AM * Will reduce Lantus for NPO status and uncertain future po intake * Will add on Novolog q6h PLAN FOR INPATIENT GLYCEMIC CONTROL: * Basal insulin * Lantus 10 units SC x1 now then 20-30 units SQ HS based on BSG * Bolus insulin * NovoLog per scale q4h today, then q6h tomorrow * Goal Range: Low 110 mg/dL - High 140 mg/dL * Correction Factor: 15 mg/dL/unit for now, then 20 mg/dL/unit tomorrow AM * Nutritional / Prandial insulin per carb ratio of 1 unit per 7 grams CHO consumed
--- NOTE | 2020-12-31 09:54 | Progress Note ---
Date of Service Post Op day # 1 Pablo is doing great from the surgery last night. His swelling is going down very nicely. No bleeding noted, sites well sutured with good anatomic form My an OMS point of view Pablo may be discharged. I will order oral antibiotics and pain Meds. I will arrange follow up in my office. He has my contact information. Over all Pablo did better then expected given the amount of oral infection and glossy fractured teeth. OK for Discharge from Oral Surgery point of view. December 31, 2020 Assessment & Plan Admission and Anticipated Discharge Date Admission Date: December 29, 2020 Results & Data ([facility]) Vital Signs (Past 12 Hours) Vital Signs Temp Pulse Pulse Resp BP Pulse Ox 12/31/20 07:47 37.0 C 91 H 16 118/78 92 12/31/20 03:37 36.9 C 79 20 125/76 92 12/30/20 22:21 37.1 C 96 H 20 139/81 93 PG Care Time/CCT Total # of Minutes Spent Total Time Spent with Patient: Total time spent is greater than 50% in coordination of care (as documented) at patient's floor/unit and/or counseling patient: Coding Level of Care Code 02369 Subseq Hosp Care Lvl 1
[2020-12-31] MEDS ORDERED: Nursing to Pharmacy Communication SCH (10:15)
[2020-12-31] MEDS ORDERED: INSULIN ASPART 100 UNITS/ML 3 ML PEN SC SCH ×2 (11:30→12:00)
--- NOTE | 2020-12-31 14:31 | Discharge Summary ---
Date of Service December 31, 2020 Admission HPI Per Admitting Provider This is a pleasant 75 yo male who comes into the hospital after being seen by Dr. lara for a tooth abscess. He was being treated with amoxicillin as an outpatient with no improvement. This has been ongoing for 6 months. This has worsened over past 2 weeks, and this was accompanied by chills. He reports pain is 8 out of 10. Principal Diagnosis Dental infection, abscess Thrombocytopenia Discharge Exam Constitutional WD/WN, vitals as above Eyes + anicteric sclerae ENMT Mouth: + edentulous (With ecchymoses of the gum and sutures in place) Neck trachea midline, no thyromegaly Respiratory normal respiratory effort, lungs clear to auscultation Cardiovascular RRR, no murmur, no edema Chest (Breasts) Chest: normal inspection of chest Gastrointestinal (Abdomen) normal bowel sounds, soft, nontender, no hepatosplenomegaly Musculoskeletal Extremities: extremities normal to inspection; no cyanosis and no clubbing Skin no rashes, warm and dry Neurologic moves all extremities and awake; no focal motor deficits Psychiatric A+Ox3, euthymic affect Lymphatic no lymphedema Discharge Data Allergies Allergy/AdvReac Type Severity Reaction Status Date / Time atenolol Allergy Intermediate pass out, Verified 12/29/20 15:55 chest pain atorvastatin [From Lipitor] Allergy Mild myalgia Verified 12/29/20 15:55 cilostazol [From Pletal] Allergy Unknown Unknown Verified 12/29/20 15:55 pollen extracts Allergy Unknown ENVIRONMENTAL Verified 12/29/20 15:55 ALLERGIES Consultations 12/29/20 18:11 ED Decision to Admit Stat 12/30/20 07:19 Consult Oromaxillofacial Surgery Routine Procedures Performed Operation Date: 12/30/20 12:10 Actual Procedures p Right Incision and Drainage Facial Infection, Removal of Right Jaw Cyst(Right) - Yossi Lara DMD s Extraction of Infected Teeth(Bilateral) - Yossi Lara DMD Ordered Studies 12/29/20 15:53 CT facial bones wo/w con Stat Face CT 12/29/20 15:53 CT facial bones wo/w con HISTORY: Right mandibular swelling. R mandibular abscess with and w/o per DR Lara TECHNIQUE: Multiaxial CT images of the facial bones were performed both before and after the intravenous administration of 87 cc of Optiray 320. COMPARISON STUDY: None. FINDINGS: There is a 1 cm periapical lucency at ADA 28 demonstrating cortical breakthrough along the buccal surface and an adjacent 1.9 cm soft tissue abscess. This is best seen on axial image 195. There is an additional 4 mm periapical lucency at ADA 22 without associated soft tissue abscess. Multiple dental caries are noted. The visualized brain parenchyma and orbits are unremarkable. The pterygopalatine fossa are well-maintained. The parotid and submandibular glands are symmetric. No upper cervical lymphadenopathy identified. The epiglottis and visualized prevertebral soft tissues are normal in thickness. There is a 1.3 cm anterior nasal septal defect. Right mandibular soft tissue swelling is noted. This is likely reactive. No abscess within the sublingual or submental spaces. Moderate calcified plaque within the bilateral carotid siphons and distal vertebral arteries without significant stenosis. There is mild right and moderate left carotid bifurcation calcified plaque. This results in approximately 30% focal stenosis at the proximal left internal carotid artery. The right internal carotid artery is patent. IMPRESSION: 1. A 1 cm periapical lucency at ADA 28 with associated cortical breakthrough at the buccal surface and an adjacent 1.9 cm soft tissue abscess. 2. Additional periodontal disease as described above. ACT 112: Negative or not required by law. Electronically signed by: Armen Manriquez M.D. 12/29/2020 5:36 PM Chest X-Ray 12/29/20 15:58 XR chest 1V portable CLINICAL HISTORY: Infection COMPARISON STUDY: Chest radiograph November 07, 2016. FINDINGS: Lung volumes are normal. Linear bilateral opacities favor atelectasis. There is no consolidation or evidence for pulmonary edema. No pneumothorax or pleural effusion is noted. There is no significant change in appearance of the chest. There is borderline cardiomegaly. IMPRESSION: 1. No acute findings. 2. Linear bibasilar opacities which favor atelectasis. ACT 112: Negative or not required by law. Electronically signed by: Zeb Sales M.D. 12/29/2020 4:37 PM Hospital Course (1) Dental abscess: With dental abscess and infection Was admitted for IV Unasyn and urgent consultation with OMFS He had surgical excision of all of his remaining teeth in the jaw cyst and did very well with it He required platelet transfusion prior to surgery and did not have any issues with bleeding afterwards Follow-up with OMFS, Dr. Lara, after discharge as planned Continue Augmentin 875 mg p.o. twice daily x10 days and hydrocodone as needed for pain (2) Hypertension: BP controlled. Continue home medications (3) Diabetes mellitus type II, uncontrolled: Blood sugars are out of control at home with hemoglobin A1c 9.0% Resume home medications for now but recommended follow-up with PCP for improved control (4) Obesity, unspecified: BMI 34.5 Needs weight loss-defer to PCP for further counseling and management (5) Thrombocytopenia: Platelets low in the 60s here was transfused 2 units platelets prior to surgery Follows with PCP as an outpatient Abdominal ultrasound negative for splenomegaly Follow-up with PCP and consider referral to hematology if not already done Disposition-stable for discharge home Total Time Total Time Spent Total Time Spent (In Minutes): 35 minutes Total Time Includes: Examination of the Patient, Discharge Planning and Medication Reconciliation Discharge Plan Discharge Items Patient Disposition: Home - Self-Care Reason For Visit: abscess Discharge Diagnosis: acute facial infection from infected lower right jaw cyst Condition on Discharge: Good Activity: Resume your previous activity Activity Comment: please take it easy for the next few days Lifting: Gradually increase as tolerated Bathing: No limitations Exercise/Sports: Gradually increase as tolerated Driving/Machine Use: Resume 1 day after discharge Weightbearing: Full weightbearing Non-emergency contact: Surgeon Call non-emergency contact if: your temperature is above 101.5, your wound has increased redness, your wound has increased drainage and your wound pain has increased Follow-up/Referrals: Leno Craft, [Primary Care Provider] - (Follow-up within 1 [address] Kam the wants to make his hospital f/u visit herself.) Yossi Lara, RADHA [Physician] - 01/14/21 2:15 pm Diet: Full liquid and Clear liquid Diet Comment: liquids only - to prevent injury to healing tissue Addtl Attending Provider Instructions: ADDITIONAL ACTIVITY RECOMMENDATIONS: * Rinse after every meal. It is very important to keep your mouth clean to prevent infection. * Starting tonight rinse with the Peridex as directed then 2 x a day * it is very important to keep well hydrated, this prevents fever and possible dry socket pain SPECIAL CARE INSTRUCTIONS: *It is not uncommon that between day 2-4 that your swelling will be at its worst this is very normal, do not be alarmed. * Keep ice on the side of your face for the next 24 to 36 hours. This will help keep the swelling down. * After 36 hours, apply heat (hot water bottle or heating pad) for the next two days, as often as possible. * Tomorrow start rinsing your mouth with 1/2 teaspoon salt in 8 ounces warm water. This rinse should be used every 4-6 hours. * You may experience slight nausea. To prevent this, never take your medication on an empty stomach. If nauseated, take small sips of bran jl until you feel better; then you may start on applesauce and toast. * Some swelling is common. It should gradually decrease within 4-5 days. * A certain amount of bleeding is to be expected. It is often possible to control mild oozing by placing folded gauze over the area and biting down for 30 minutes. If you are unable to control excessive bleeding, call Dr Lara at [phone] * You may experience some discomfort for a few days. If pain or swelling increases, Call Dr Lara * Return to the office for a follow up check up if one was given to you. * If you do not have a follow up appointment please call the office at [phone] and set one up for 10-15 days after your surgery Addtl Brand Advocate Provider Instructions: Please follow-up with your primary care physician to improve control of your diabetes. Pending Studies at Discharge: Yes Stand-Alone Forms: [facility], Smoking Cessation Medications and DC Order Prescriptions: Continued polyethylene glycol 3350 [Miralax] 17 gram powder in packet 17 gm PO DAILY PRN (Reason: Constipation) RF: 0 mometasone 0.1 % cream 1 appln TOP BID PRN (Reason: Skin Irritation) RF: 0 naproxen 500 mg tablet 500 mg PO BID PRN (Reason: Pain) RF: 0 allopurinol 300 mg tablet 300 mg PO DAILY Qty: 90 RF: 3 amlodipine [Norvasc] 10 mg tablet 10 mg PO DAILY Qty: 90 RF: 3 (DME) OneTouch Ultra Blue Test Strip Strip See Rx Instructions .ROUTE .MEDSUPPLY Qty: 100 RF: 3 hydrochlorothiazide 25 mg tablet 25 mg PO DAILY Qty: 90 RF: 3 Lantus Solostar U-100 Insulin 100 unit/mL (3 mL) insulin pen 40 unit SQ QPM 90 Days Qty: 36 RF: 3 (DME) lancets [OneTouch UltraSoft Lancets] Misc See Rx Instructions .ROUTE .MEDSUPPLY Qty: 100 RF: 3 metformin 500 mg tablet extended release 24 hr 1,000 mg PO BID Qty: 360 RF: 3 Prilosec OTC 20 mg tablet,delayed release (DR/EC) 20 mg PO DAILY Qty: 90 RF: 3 (DME) pen needle, diabetic [BD Ultra-Fine Mini Pen Needle] 31 gauge x 3/16" needle See Rx Instructions .ROUTE .MEDSUPPLY Qty: 100 RF: 3 ramipril 10 mg capsule 10 mg PO BID Qty: 180 RF: 3 rosuvastatin [Crestor] 20 mg tablet 20 mg PO DAILY Qty: 90 RF: 3 dapagliflozin 10 mg tablet 10 mg PO DAILY Qty: 90 RF: 3 furosemide [Lasix] 20 mg tablet 20 mg PO DAILY Qty: 5 RF: 0 potassium chloride 20 mEq tablet extended release 20 meq PO DAILY Qty: 5 RF: 0 ibuprofen 200 mg tablet 400 mg PO QAM PRN (Reason: Pain) RF: 0 hydrocodone-acetaminophen 5-325 mg tablet 1 tab PO Q4H PRN (Reason: pain) Qty: 20 RF: 0 Changed amoxicillin-pot clavulanate 875-125 mg tablet 1 tab PO Q12H Qty: 20 RF: 0 Discharge Orders: Discharge Order (Routine); Ordered 12/31/20 Ordered By: Tatianna Kam Admission Data Admit Date/Time: 12/29/20 19:10 Attending Provider: Tatianna Kam Admit Provider: Farzad Lopez Primary Care Provider: Leno Craft Other Providers: Farzad Lopez ; Yossi Lara Coding Level of Care Code D/C Day Management >30 mins Diagnoses Dental abscess K04.7 Hypertension I10 Diabetes mellitus type II, uncontrolled E11.65 Glycemic state: with hyperglycemia Obesity, unspecified E66.9 Thrombocytopenia D69.6
[2021-01-01] MEDS ORDERED: INSULIN ASPART 100 UNITS/ML 3 ML PEN SC SCH ×2 (06:00→07:30)
--- NOTE | 2021-01-09 10:26 | Operative Report ---
PG Post Operative Report Pre & Post Diagnosis Operation Date: 12/30/20 12:10 Pre-Op Diagnosis: Facial Abscess advanced dental decay Post-Op Diagnosis: Facial Abscess advanced dental decay I identified the patient and participated in the time-out.: Yes Procedure Operation Date: 12/30/20 12:10 Actual Procedures p Right Incision and Drainage Facial Infection, Removal of Right Jaw Cyst(Right) - Yossi Lara DMD s Extraction of Infected Teeth x 15 simple extractions (Bilateral) There were many infected and fractures teeth/roots with associated draining fistula - Yossi Lara DMD Actual Procedures p Incision and Drainage Submandibular Abscess and subperiosteal abscess lower right jaw, cyst lower right jaw Removal of infected decayed and fracture teeth (Not Applicable) - Yossi Lara DMD There were many infected and fractures teeth/roots with associated draining fistula Maxillary decayed teeth/roots--# 6-11 (6) teeth Mandibular decayed/infected teeth 18,20,22-28,30 There was a total of 15 teeth Once cleared for surgery general anesthesia was achieved, the eyes were protected by the anesthesia dept criteria. A time out was take for patient ID, antibiotics, equipment and position verification once all agreed the procedure began. Local anesthesia using Lidocaine with a vasoconstrictor ( 1.8 ml per site) given in all 4 quadrants A throat pack was placed after the oral cavity was irrigated with saline. Once a surgical level of anesthesia was obtained and the local anesthesia was given time for the blocks the surgery was started. I turned my attention to the infection which was located in the right subperiosteal area and submandibular area. There were multi draining abscess associated with many of the other infected and decayed teeth. The swelling associated with area 27-30 showed a 1 cm large lesion with became infected causing the current problems. ( see CT scan report) Incision and Drainage Using a 15 blade an incision was made lateral to the alveolar ridge and around the infected teeth lower right side Once the incision was made a lot of pus extruded from the site. The flap was reflected to expose the cystic defect . This drainage was cultured for anaerobic and aerobic bacteria. A curved hemostat was carefully placed into the infected space along the medial side of the lower jaw and into the submandibular space. Some further drainage was now allowed to escape. I palpated the neck, floor of the mouth and submental area and no further d rainage was expressed. The area was irrigated with at least 100 ml of NS solution. I now turned my attention to the infected bony defect and infected teeth lower right side. There was a total of 15 teeth Maxillary decayed teeth/roots--# 6-11 (6) teeth Mandibular decayed/infected teeth 18,20,22-28,30 The full thick Muco-periosteal flap was made on the facial aspect from #6-11 and from 18-30 . The flap was reflected to expose the infected fragments of tooth and roots.The mental nerve was isolated and drill was used to unroof the expanded bone over the cyst in area 27-30. The lesion was exposed the nerve localized and the lesion was curetted from the defect in the bone. The rogue/drill was used to remove bone, the teeth were removed with a 301 elevator and dental forceps, the mental nerve was intact, there was a large amount of granulation tissue on the apex. The bone was recontoured and sutured with 2-0 chromic. Excellent anatomic ridge form was achieved. Bleeding was well controlled. Surgeon Yossi Lara, DMD [place] none Estimated Blood Loss 15 Findings Consistent with Post-Op Diagnosis Specimens cyst right side C&S infection Description of Procedure I&D Excision of cyst removal of 15 infected teeth I attest to the content of the Intraoperative Record and any orders documented therein. Any exceptions are noted below.
--- NOTE | 2021-01-11 12:30 | Coding Query ---
CODING QUERY FOR UNCONTROLLED DIABETES To promote full compliance with coding requirements relating to patient care, provider participation is requested in all cases of needle setter uncertainty. Please assist us with the question(s) below: Coding Question: The term uncontrolled Diabetes was used throughout the record. To be able to code this diagnosis properly, could you please clarify the diagnosis below: ( ) Uncontrolled Diabetes meaning hypoglycemia ( x ) Uncontrolled Diabetes meaning hyperglycemia ( ) Other (please specify) Principal Diagnosis: "that condition established after study, to be chiefly responsible for occasioning the admission of the patient to the hospital for care." Co-Existing Principal Diagnosis: "when two or more diagnoses equally meet the criteria for principal diagnosis as determined by the circumstances of admission, diagnostic work up, and/or therapy provided, and the Alphabetic Index, Tabular List, or another coding guideline does not provide sequencing direction, any one of the diagnoses may be sequenced first." "When the physician has documented what appears to be a current diagnosis in the body of the record, but has not included the diagnosis in the final diagnostic statement, the physician should be asked whether the diagnosis should be added." (Source [facility]oding [facility] 2 QTR90. p3-4) ALIE
== END 2020-12-31 15:47 | disposition home or self-care (01) | DRG 142 ==
LOC: ED 15:33 → SUATTDRO 19:10 → 3N 19:10